=== PATIENT | female | born 1955 | race Caucasian/White ===

== ENCOUNTER 2025-01-26 05:00 | Outpatient (CLI) | payer MEDICARE, SELFPAY | END 2025-01-26 05:01 | LOC: SOT 02-17 09:02 | PROVIDERS: PCP Family Medicine; Visit Provider Family Medicine | DX: Z46.89 Encounter for fitting and adjustment of other specified devices (principal); M84.521D Pathological fracture in neoplastic disease, right humerus, subsequent encounter for fracture with routine healing; D49.9 Neoplasm of unspecified behavior of unspecified site | CPT/HCPCS: L3670 ==

== ENCOUNTER 2025-02-03 09:10 | Outpatient (CLI) | payer MEDICARE, SELFPAY ==
--- NOTE | 2025-02-03 09:21 | XRR_ITS ---
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 Complete osseous survey. Axial and appendicular skeleton. COMPARISON: No relevant prior studies available. FINDINGS: Bones/joints: Marginal spurring and disc height loss noted at multiple levels of the cervical, thoracic, and lumbar spine. Grade 1 degenerative spondylolisthesis L4-L5. Lytic lesions in the bilateral humeral diaphyses, [id number]-left, the left scapular acromion process, and the right proximal femur. Probable nondisplaced pathologic fracture of the right humeral diaphysis. Soft tissues: Unremarkable. XR/XR bone survey* [id number] IMPRESSION: 1. Lytic lesions in the bilateral humeral diaphyses, [id number]-left, the left scapular acromion process, and the right proximal femur. Findings are concerning for myeloma or metastatic disease. 2. Probable nondisplaced pathologic fracture of the right humeral diaphysis. Orthopedic consultation is recommended. 3. Multilevel spondylosis. 4. Grade 1 degenerative spondylolisthesis L4-L5.
== END 2025-02-03 09:11 | disposition home or self-care (01) ==
PROVIDERS: PCP Family Medicine; Visit Provider Family Medicine
DX: D49.2 Neoplasm of unspecified behavior of bone, soft tissue, and skin (principal); M89.8X8 Other specified disorders of bone, other site; M89.8X1 Other specified disorders of bone, shoulder; M89.8X5 Other specified disorders of bone, thigh; R93.7 Abnormal findings on diagnostic imaging of other parts of musculoskeletal system; M43.16 Spondylolisthesis, lumbar region; M77.8 Other enthesopathies, not elsewhere classified; M46.09 Spinal enthesopathy, multiple sites in spine; M47.9 Spondylosis, unspecified
CPT/HCPCS: 77075

== ENCOUNTER 2025-02-08 15:34 | Outpatient (CLI) | payer MEDICARE, SELFPAY ==
--- NOTE | 2025-02-08 15:56 | CTR_ITS ---
PROCEDURE INFORMATION: Exam: CT Chest With Contrast; Diagnostic Exam date and time: 02/08/2025 4:30 PM Age: 69 years old Clinical indication: Other: Right upper arm pain with lesions on xray; Prior surgery; Surgery date: 6+ months; Surgery type: Hyst, colon; Pain and swelling in right arm with lesion seen on xray since last Saturday. ; Additional info: Neoplasm of bone TECHNIQUE: Imaging protocol: Diagnostic computed tomography of the chest with contrast. Radiation optimization: All CT scans at this facility use at least one of these dose optimization techniques: automated exposure control; mA and/or kV adjustment per patient size (includes targeted exams where dose is matched to clinical indication); or iterative reconstruction. Contrast material: OMNI 350; Contrast volume: 100 ml; Contrast route: INTRAVENOUS (IV); COMPARISON: CR XR bone survey* [id number] 02/03/2025 9:32 AM RADIATION DOSE METRICS: Total DLP (mGy-cm): 1483.8 FINDINGS: Lungs: Unremarkable. No consolidation. No masses. Pleural spaces: Unremarkable. No pneumothorax. No pleural effusion. Heart: Unremarkable. No cardiomegaly. No pericardial effusion. Heart RV/LV ratio: The RV/LV ratio is 0.7. Lymph nodes: Unremarkable. No enlarged lymph nodes. Vasculature: Multiple pulmonary emboli are noted bilaterally. One embolus involves the right main pulmonary artery but the other emboli involve the lower lobar branches bilaterally. Bones/joints: There is a partially imaged infiltrating mass involving the diaphysis of the right humerus. There is bony destruction here. Soft tissues: Unremarkable. PROCEDURE INFORMATION: Exam: CT Abdomen And Pelvis With Contrast Exam date and time: 02/08/2025 4:30 PM Age: 69 years old Clinical indication: Other: Right upper arm pain with lesions on xray; Prior surgery; Surgery date: 6+ months; Surgery type: Hyst, colon; Pain and swelling in right arm with lesion seen on xray since last Saturday. ; Additional info: Neoplasm of bone TECHNIQUE: Imaging protocol: Computed tomography of the abdomen and pelvis with contrast. Radiation optimization: All CT scans at this facility use at least one of these dose optimization techniques: automated exposure control; mA and/or kV adjustment per patient size (includes targeted exams where dose is matched to clinical indication); or iterative reconstruction. Contrast material: OMNI 350; Contrast volume: 100 ml; Contrast route: INTRAVENOUS (IV); COMPARISON: CR XR bone survey* [id number] 02/03/2025 9:32 AM RADIATION DOSE METRICS: Total DLP (mGy-cm): 1483.8 FINDINGS: Lungs: Lung bases are clear. No pleural effusion. Liver: Normal. No mass. Gallbladder and biliary ducts: A single gallstone is noted in the gallbladder but I see no gallbladder wall inflammation. Pancreas: Normal. No ductal dilation. Spleen: Normal. No splenomegaly. Adrenal glands: Normal. No mass. Kidneys and ureters: Normal. No hydronephrosis. Stomach and bowel: Unremarkable. No obstruction. No mucosal thickening. Appendix: No evidence of appendicitis. Intraperitoneal space: Unremarkable. No free air. No significant fluid collection. Vasculature: Unremarkable. No abdominal aortic aneurysm. Lymph nodes: Unremarkable. No enlarged lymph nodes. Urinary bladder: Unremarkable as visualized. Reproductive: Unremarkable as visualized. Bones/joints: Unremarkable. No acute fracture. Soft tissues: Unremarkable. CT/CT chest abdpel w/*[id number] IMPRESSION: 1. Bilateral pulmonary emboli with no evidence of right heart strain 2. Lytic lesion involving the right humerus of uncertain etiology. No other bony lesions identified IMPRESSION: 1. There is no evidence of active neoplastic disease. 2. Cholelithiasis
[2025-02-08] MEDS: iohexol 350 mg/mL 500 mL Btl (per mL) IV (16:50)
== END 2025-02-08 15:35 | disposition home or self-care (01) ==
PROVIDERS: PCP Family Medicine; Visit Provider Family Medicine
DX: D49.2 Neoplasm of unspecified behavior of bone, soft tissue, and skin (principal); K80.20 Calculus of gallbladder without cholecystitis without obstruction; I26.99 Other pulmonary embolism without acute cor pulmonale; M89.9 Disorder of bone, unspecified
CPT/HCPCS: 71260; 74177

== ENCOUNTER 2025-02-24 12:15 | Oncology outpatient (recurring) (ONCR) | payer MEDICARE, SELFPAY ==
--- NOTE | 2025-02-09 10:18 | MR_ITS ---
WS: [id number] MRI RIGHT forearm without and with gadolinium enhancement INDICATION: Possible bone metastasis TECHNIQUE: Coronal T1, coronal STIR, sagittal T1, sagittal T2 axial T1 post gadolinium imaging was obtained of the RIGHT forearm. FINDINGS: Normal bone marrow signal in the RIGHT radius and ulna. No evidence of metastatic disease in the RIGHT radius or ulna. No enhancing lesions in the forearm. Degenerative arthritis partially visualized involving the elbow with small joint effusion. Degenerative edema involving the radial head. Hypertrophic spurring involving the olecranon. Degenerative arthritis partially visualized in the wrist. MR/MR forearm RT wo/w con [id number] IMPRESSION: 1. No evidence of metastatic disease in the forearm radius or ulna. 2. 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 3. Note this forearm study does not include the humerus or the previously desc ribed lytic lesion in the RIGHT humeral shaft on the prior CT
[2025-02-09] MEDS: gadobenate dimeglumine 20 mL vial IV (11:01)
[2025-02-09 15:20] LABS: CA 125 16.3 U/mL (0-35); CA 15-3 13.3 U/mL (0-25); Lactate Dehydrogenase 184 U/L (135-214)
[2025-02-09 15:37] LABS: Carcinoembryonic Antigen 2.9 ng/mL (0.0-4.7); Tumor Marker Alpha Fetoprotein 2.6 ng/mL (0-8.3)
[2025-02-09 15:51] LABS: Immunoglobulin IGA 78 mg/dL (70-400); Immunoglobulin IGG 813 mg/dL (700-1600); Immunoglobulin IGM 33 mg/dL (40-230)
--- NOTE | 2025-02-11 14:30 | MR_ITS ---
WS: [id number] MRI of the RIGHT humerus without and with gadolinium enhancement. INDICATION: Bone metastasis TECHNIQUE: MRI of the RIGHT humerus without and with gadolinium enhancement coronal T1 and STIR axial T2 axial PD sagittal STIR sagittal T1 post gadolinium fat saturation imaging FINDINGS: Heterogeneously enhancing bony metastasis involving the RIGHT humeral shaft measuring approximately 6.5 x 2.1 cm. Associated smaller satellite lesion measuring 1.9 x 1.0 cm. Associated surrounding soft tissue edema. Metastatic lesion demonstrates bony expansion and destruction with a lytic appearance. Cortical involvement with cortical breakthrough. Evidence of small pathologic fractures in the region of cortical breakthrough MR/MR humerus RT wo/w con [id number] IMPRESSION: 1. Heterogeneously enhancing lytic metastasis involving the humeral shaft wi th bony expansion and cortical breakthrough described above. 2. Pathologic fracture in the area of cortical breakthrough also seen on the p rior radiographs. Recommend orthopedic consultation. Surrounding soft tissue ed nalini. 3. Adjacent smaller satellite lesion just cephalad to the dominant lesion.
[2025-02-11] MEDS: gadobenate dimeglumine 20 mL vial IV (15:07)
[2025-02-18 16:15] LABS: Chromogranin A LC/MS/MS 152 ng/mL (ADULTS: <311)
[2025-02-24 12:43] LABS: Basophils # 0.1 10^3/uL (0.0-0.1); Basophils % 0.8 %; Eosinophils # 0.4 10^3/uL (0.0-0.8); Eosinophils % 5.6 %; Hematocrit 39.8 % (36-47); Lymphocytes # 2.8 10^3/uL (0.8-4.8); Lymphocytes % 42.1 %; Mean Corpuscular HGB Conc 33.4 g/dL (30-55); Mean Corpuscular Hemoglobin 30.2 pg (27-33); Mean Corpuscular Volume 90.2 fl (85-98); Mean Platelet Volume 10.3 fL (7.4-10.4); Monocytes # 0.7 10^3/uL (0.2-0.9); Monocytes % 9.8 %; Neutrophils # 2.75 10^3/uL (1.8-7.7); Neutrophils % 41.5 %; Nucleated Red Blood Cells % 0 %; Platelet Count 265 10^3/cmm (157-399); Red Blood Count 4.41 10^6/uL (3.85-5.65); Red Cell Distribution Width 12.4 % (12.1-15.1); White Blood Count 6.62 10^3/uL (3.29-11.43)
[2025-02-24 13:05] LABS: INR 1.08 (0.8-1.2)
[2025-02-24 13:08] LABS: D Dimer 1.03 ug/mLFEU (0-0.59)
[2025-02-24 13:13] LABS: HCG Quantitative 1.13 mIU/mL
[2025-02-24 13:18] LABS: Alanine Aminotransferase 10 U/L (0-33); Albumin Level 4.1 g/dL (3.5-5.2); Alkaline Phosphatase 96 U/L (35-105); Aspartate Amino Transferase 15 U/L (0-32); Blood Urea Nitrogen 17 mg/dL (8-23); Calcium 9.3 mg/dL (8.5-10.5); Carbon Dioxide 25 mmol/L (22-29); Chloride 103 mmol/L (98-107); Creatinine Clr Calc Pharmacy 80.0858; Globulin 2.7 g/dL (1.3-4.6); Glucose 99 mg/dL (65-115); Immunoglobulin IGA 77 mg/dL (70-400); Immunoglobulin IGG 836 mg/dL (700-1600); Immunoglobulin IGM 41 mg/dL (40-230); Lactate Dehydrogenase 169 U/L (135-214); Osmolality Calculated 290 mOsm/kg (285-295); Sodium 139 mmol/L (136-145); Total Bilirubin 0.6 mg/dL (0.15-1.2); Total Protein 6.8 g/dL (6.6-8.7)
[2025-02-26 11:50] LABS: KAPPA LIGHT CHAIN, FREE, SERUM 499.7 mg/L (3.3-19.4); KAPPA/LAMBDA LIGHT CHAINS FREE 54.32 (0.26-1.65); LAMBDA LIGHT CHAIN, FREE, SERU 9.2 mg/L (5.7-26.3)
== END 2025-02-24 23:59 | disposition home or self-care (01) ==
PROVIDERS: PCP Family Medicine; Visit Provider Internal Medicine
DX: Z53.9 Procedure and treatment not carried out, unspecified reason (principal); C79.51 Secondary malignant neoplasm of bone; I26.99 Other pulmonary embolism without acute cor pulmonale; G89.3 Neoplasm related pain (acute) (chronic); M84.48XA Pathological fracture, other site, initial encounter for fracture; E66.9 Obesity, unspecified; Z68.41 Body mass index [BMI] 40.0-44.9, adult; Z79.01 Long term (current) use of anticoagulants
CPT/HCPCS: 36415; 73220; 80053; 82105; 82378; 82784; 83615; 83883; 84702; 85025; 85378; 85610; 86300; 86301; 86304; 86316; 99204; 99213

== ENCOUNTER 2025-03-15 08:57 | Emergency (ER) | payer MEDICARE, SELFPAY ==
[2025-03-15 09:18] VITALS: BP 161/83; PULSE 70; TEMP 36.6; O2SAT 95; BMI 40.7
--- NOTE | 2025-03-15 09:51 | XRR_ITS ---
PROCEDURE INFORMATION: Exam: XR Right Humerus Exam date and time: 03/15/2025 10:00 AM Age: 69 years old Clinical indication: Pain; Upper arm; Right; Additional info: Arm pain TECHNIQUE: Imaging protocol: Radiologic exam of the right humerus. Views: 2 or more views. COMPARISON: MR humerus RT wo/w con [id number] 02/11/2025 2:26 PM FINDINGS: Bones/joints: There is a lytic lesion in the mid shaft of the right humerus again seen as described on the MRI imaging dated 02/11/2025. The lesion measures approximately 6.7 cm in length thinning the cortex circumferentially with scattered periosteal reaction present. Soft tissues: Normal. XR/[place] [id number] IMPRESSION: Mid shaft metastatic lesion of the right humerus again seen
--- NOTE | 2025-03-15 09:51 | XRR_ITS ---
PROCEDURE INFORMATION: Exam: XR Right Shoulder Exam date and time: 03/15/2025 9:57 AM Age: 69 years old Clinical indication: Pain; Shoulder; Right; Additional info: Arm pain TECHNIQUE: Imaging protocol: Radiologic exam of the right shoulder. Views: 2 or more views. COMPARISON: CR XR bone survey* [id number] 02/03/2025 9:32 AM FINDINGS: Bones/joints: An irregular lytic lesion of the mid shaft of the right humerus is again seen as described on the MRI imaging dated 02/11/2025. There is mild bone spurring and joint space narrowing seen within the right acromioclavicular joint compatible with osteoarthritic changes. Soft tissues: Normal. XR/XR shoulder RT min 2V* [id number] IMPRESSION: 1. Bony metastatic lesion in the mid shaft of the right humerus is again seen. 2. Osteoarthritic changes in the right acromioclavicular joint
--- NOTE | 2025-03-15 10:18 | ED_ITS ---
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 Patient is awaiting bone biopsy at [facility] she goes there and is following up with orthopedic oncology there after. She states that today her pain is worsened and needs some pain control. She states the pain is mainly in the humerus rates it a 8 out of 10 she has had pulmonary emboli as well as currently on Eliquis. Denies any new injuries Associated symptoms: Deny chest pain, fever(s) or rash Related Data Home Medications ?Medication ?Instructions ?Recorded ?Confirmed hydrocodone 10 mg-acetaminophen tab PO 02/09/25 325 mg tablet apixaban 5 mg tablet (Eliquis) 5 mg PO BID 02/24/25 ivermectin 3 mg tablet mg PO DAILY 02/24/25 5 Previous Rx's ?Medication ?Instructions ?Recorded oxycodone-acetaminophen 10 mg-325 1 tab PO Q8H PRN tracy n #20 tabs 03/15/25 mg tablet (Percocet) Allergies Allergy/AdvReac Type Severity Reaction Status Date / Time No Known Drug Allergies Allergy Mild Unknown Verified 03/15/25 09:24 Review of Systems Const: Denies: fever(s), chills, body aches or change in appetite ENMT: Denies: throat pain or dental pain Card: Denies: chest pain Resp: Denies: dyspnea GI: Denies: abdominal pain, nausea, vomiting or diarrhea Musc: Reports: extremity pain; Denies: neck pain or back pain Skin/Breast: Denies: rash Neuro: Denies: headache(s) Physical Exam Const: COMMON NORMALS: no acute distress, patient oriented x3 and healthy appearing HENMT: COMMON NORMALS: normocephalic and atraumatic HEAD & SCALP: normocephalic and atraumatic Neck/C-Spine: COMMON NORMALS: full ROM and supple Chest: COMMONS NORMALS: normal inspection of the chest Resp: COMMON NORMALS: normal respiratory effort Cardio: COMMON NORMALS: regular rate RATE: regular rate Extremity: NARRATIVE EXTREMITY EXAM: Patient currently in a sling has tenderness over right humerus distal pulses sensation are intact to the right arm Neuro: COMMON NORMALS: patient oriented x3, moves all extremities and no focal motor deficits Psych: COMMON NORMALS: mental status grossly normal, Normal thought process present and cooperative THOUGHT PROCESS: Normal thought process present Skin: COMMON NORMALS: no rashes or lesions noted and no wounds GENERAL SKIN EXAM: no rashes or lesions noted Course Vital Signs: Vital signs: Vital Signs Temperature 97.9 F 03/15/25 09:18 Pulse Rate 70 03/15/25 09:18 Respiratory Rate 18 03/15/25 10:33 Blood Pressure 161/83 03/15/25 09:18 Pulse Oximetry 99 03/15/25 10:33 Oxygen Delivery Me thod Room Air 03/15/25 10:33 MDM - Extremity (Nontraumatic) Medical Decision Making Patient presents with arm pains been chronic from bone metastases x-ray showed no new findings did give her Dilaudid she feels improved will prescribe her Percocet she has a bony biopsy scheduled this week follow-up with scheduled return if worsening. Medical Records I reviewed the patient's medical records. Lab Data Radiology Impressions Humerus X-Ray 03/15/25 09:51 IMPRESSION: Mid shaft metastatic lesion of the right humerus again seen Shoulder X-Ray 03/15/25 09:51 IMPRESSION: 1. Bony metastatic lesion in the mid shaft of the right humerus is again seen. 2. Osteoarthritic changes in the right acromioclavicular joint All radiology interpretation(s) finalized by discharge Discharge Plan Discharge Patient Disposition: Home Clinical Impression: Metastasis to bone, Neoplasm related pain Condition: Stable Prescriptions: New oxycodone-acetaminophen [Percocet] 10-325 mg tablet 1 tab PO Q8H PRN (Reason: pain) Qty: 20 0RF No Action Eliquis 5 mg tablet 5 mg PO BID ivermectin 3 mg tablet PO DAILY hydrocodone-acetaminophen 10-325 mg tablet PO Discharge Orders: Discharge ED (Routine); Ordered 03/15/25 Ordered By: Sonny Sanchez Referrals: Ryne Madison MD [Primary Care Provider, [facility]] Discharge Diet: Advance as tolerated Discharge Activity: Resume usual activity Patient Instructions: Arm Pain (ED) Print Language: Belarusian Coding Level of Care Code ED [employer] Representative for Yeison Xie
[2025-03-15] MEDS: HYDROmorphone 0.5 MG/0.5 ML INJ 1 MG IM (10:30)
[2025-03-15 10:33] VITALS: RESP 18; O2SAT 99
[2025-03-15 11:01] VITALS: BP 158/73; PULSE 76; O2SAT 98
== END 2025-03-15 11:01 | disposition home or self-care (01) ==
PROVIDERS: Emergency Provider Emergency Medicine; PCP Family Medicine
DX: G89.3 Neoplasm related pain (acute) (chronic) (principal); C79.51 Secondary malignant neoplasm of bone; Z79.899 Other long term (current) drug therapy; Z79.01 Long term (current) use of anticoagulants; Z86.711 Personal history of pulmonary embolism
CPT/HCPCS: 73030; 73060; 96372; 99284; J1171

== ENCOUNTER 2025-03-25 14:26 | Oncology outpatient (recurring) (ONCR) | payer MEDICARE, SELFPAY ==
--- NOTE | 2025-03-19 14:30 | PETR_ITS ---
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 Then, PET images were obtained. Attenuation corrected images were constructed using the CT scan. Fused images of PET and CT were reviewed. The standardized uptake values (SUV) reported below are maximum values within a region of interest, expressed in gm/ml. Exam includes the whole body. SUV normalization method: BodyWeight Radiopharmaceutical: 11.44 mCi F-18 FDG (Fluorodeoxyglucose), IV. Time of imaging post radiopharmaceutical administration: 45 minutes Injection site: left ac COMPARISON: 1. MR humerus RT wo/w con [id number] 02/11/2025 2:[address] chest abdpel w/*[id number] 02/08/2025 4:30 PM 3[place] [id number] 03/15/2025 10:00 AM FINDINGS: Brain: Visualized brain has normal physiologic uptake. Paranasal sinuses: Moderate [id number]-right ethmoid air cell opacification and mild bilateral maxillary sinus opacification with fluid level on the right. Pharynx: No abnormal uptake. Larynx: No abnormal uptake. Lungs, pleura and trachea: No abnormal uptake. Right lung calcified granulomata. Heart: Normal physiologic uptake. Mediastinal space: No abnormal uptake. Liver: No abnormal uptake. Gallbladder and biliary ducts: No abnormal uptake. Cholelithiasis. Pancreas: No abnormal uptake. Spleen: No abnormal uptake. Calcified granulomata. Adrenal glands: No abnormal uptake. Kidneys and ureters: Normal physiologic uptake. Stomach and bowel: No abnormal uptake. Rectal anastomosis. Reproductive: The uterus is surgically absent. Vasculature: No abnormal uptake. Mild systemic atherosclerotic calcification without aortic aneurysm. Lymph nodes: No abnormal uptake. No lymphadenopathy in the head, neck, chest, abdomen, pelvis, and extremities. Calcified mediastinal and right hilar nodes in keeping with sequela of old granulomatous disease. Skeleton: Approximately 7 cm long lytic right mid humeral shaft lesion with significant cortical thinning and possible disruption such as on axial image 498 shows SUV max 5.6. Ovoid lucent lesion at the left scapular acromion with milder cortical thinning measures 2.9 x 1.7 cm on axial image 530 and shows SUV max 3.9. Right glenohumeral joint periarticular FDG uptake without underlying CT abnormality. Degenerative change along the axial skeletal system, shoulders, knees, and feet. FDG uptake at heterogeneously calcified proximal right hamstring tendon. Soft tissues: No abnormal uptake in the visualized head, neck, chest, abdomen, pelvis, and extremities. METRICS: Mediastinal blood pool: SUV mean 2.2 Liver uptake: SUV mean 2.9 PET/PET WB melanoma INITIAL [id number] IMPRESSION: 1. FDG avid 7 cm long right mid humeral shaft lytic lesion compatible with malignancy. 2. FDG avid 2.9 cm lucent left acromion lesion also suspicious for malignancy. 3. Right glenohumeral joint periarticular uptake is likely inflammatory. 4. Likely inflammatory uptake at heterogeneously calcified proximal right hamstring tendon. 5. Moderate ethmoid air cell greater than maxillary sinus disease with right maxillary sinus fluid level possibly indicating acute sinusitis. 6. Additional chronic and incidental findings as above.
== END 2025-03-27 23:59 | disposition home or self-care (01) ==
PROVIDERS: PCP Family Medicine; Visit Provider Internal Medicine
DX: C79.51 Secondary malignant neoplasm of bone (principal); C90.00 Multiple myeloma not having achieved remission; G89.3 Neoplasm related pain (acute) (chronic); I26.99 Other pulmonary embolism without acute cor pulmonale; Z79.01 Long term (current) use of anticoagulants
CPT/HCPCS: 78816; 99213; A9552

== ENCOUNTER 2025-04-08 13:33 | Outpatient (CLI) | payer MEDICARE, SELFPAY ==
[2025-04-09 08:19] LABS: CREATININE, 24 HOUR URINE 1.06 g/24 h (0.50-2.15); PROTEIN, TOTAL, 24 HR UR 86 mg/24 h (<150); Protein/Creatinine Ratio 80 mg/g creat (<150)
== END 2025-04-08 13:34 | disposition home or self-care (01) ==
LOC: LAB 13:35
PROVIDERS: PCP Family Medicine; Visit Provider Internal Medicine
DX: C79.51 Secondary malignant neoplasm of bone (principal)
CPT/HCPCS: 82570; 84166; 86335

== ENCOUNTER 2025-04-13 13:18 | Outpatient (CLI) | payer MEDICARE, SELFPAY ==
--- NOTE | 2025-04-13 13:27 | XR_ITS ---
WS: [id number] Left shoulder, 2 views, 04/13/2025 Clinical Data: PAIN IN L SHOULDER Comparison: None. Findings: No fractures or dislocations are seen. The AC joint is normal. The adjacent left clavicle, left scapula and ribs are normal. The soft tissues are unremarkable. XR/XR shoulder LT min 2V* [id number] Impression: Negative left shoulder.
== END 2025-04-13 13:19 | disposition home or self-care (01) ==
PROVIDERS: PCP Family Medicine; Visit Provider Family Medicine
DX: M25.512 Pain in left shoulder (principal)
CPT/HCPCS: 73030

== ENCOUNTER 2025-04-21 10:54 | Outpatient (RCR) | payer MEDICARE, SELFPAY | END 2025-04-26 23:59 | disposition home or self-care (01) | LOC: SPT 10:54 | PROVIDERS: Visit Provider Registered Nurse | DX: M84.5 Pathological fracture in neoplastic disease (principal); C90.00 Multiple myeloma not having achieved remission | CPT/HCPCS: 97161 ==

== ENCOUNTER 2025-04-23 09:05 | Emergency (ER) | payer MEDICARE, SELFPAY ==
[2025-04-23] VITALS (7 sets, daily range): BP systolic 160–205; BP diastolic 98–113; PULSE 54–66; RESP 16–17; TEMP 36.3; O2SAT 96–100; BMI 40.3
--- OUTSIDE RECORDS SUMMARY | 2025-04-23 09:10 | XMS_ITS | Data Portability ---
Author Organization [facility], [place]thia, [facility] Address [address] [id number] Assessment Encounter Date Assessment Date Assessment LastModified by Organization Details LastModified Time 04/13/2025 04/13/2025 she has oxycodone for pain but hasn't taken it lately. she flavio luse that if needed. i spent 40 minutes answering questions regarding her overall care. [email or web address] Not available 04/13/2025 13:59:59 Plan of Treatment Reminders Order Date Submit Date Provider Last Modified By Organization Details Last Modified Time Details Appointments None recorded. Lab PT/INR 2024 025 [facility] ([facility]), [address] [place] [address], [id number], 12:16:54 CBC 2024 025 [facility], [address] [place] [address], 12:34:18 CMP, serum or plasma 2024 025 [facility], [address] [place] [address], [address], 12:41:04 CBC w/ auto diff [address] [facility], [address] [place] [address], [address], 5 09:03:53 peripheral blood smear 2024 025 [email or web address] [id number] [facility], [address] [place] [address], [address], [place], [address], 5 09:03:53 CMP, serum or plasma 2024 025 [facility], [address], [address], [place], [address], 5 10:45:45 immunofixa tion + protein electropho resis + free light chains, serum 2024 025 [facility], [address] [place] [address], [address], [place], [address], 16:10:24 immunofixa tion, 24-hr urine [address], [address] [place] [address], [address], [place], [address], 09:03:53 kappa light chains free/lambd a light chains free, ratio, urine 2024 025 [facility], [address] [place] [address], [address], [place], [address], 5 16:10:23 ldh, serum or plasma 2024 025 [facility], [address] [place] [address], [address], [place], [address], 5 16:10:21 urinalysis , complete 2024 025 [facility], [address], [address], [place], [address], 5 10:29:04 TSH + free T4, serum 2024 025 [facility] [employer] [facility], [address], [address] [place], [address], 5 16:10:25 Referral physical therapist referral 2024 025 [email or web address] 4 [facility], [address] [place], [address], 5 10:29:59 orthopedic surgeon referral 2024 025 [email or web address] 2 Not available 10:53:01 oncologist referral 2024 025 [facility] Cosme Gibbs MD, [address] [place], [address], 5 13:04:14 Procedures None recorded. Surgeries None recorded. Imaging XR, shoulder, 2 or more view 2024 025 [facility], [address] [place], [address], 5 15:10:17 XR, whole body - skeletal survey today please 2024 025 [email or web address] 2 [facility], [address] [place], [address], 5 12:46:31 Medication Orders ondansetro n HCl 8 mg tablet 2024 025 [facility], [address], [place], [address], 5 13:34:58 trazodone 150 mg tablet [address] [facility], [address], [place], [address], 13:58:14 escitalopr am 10 mg tablet 2024 025 [facility] [address], [place], [address], 13:55:11 Patient TargetsNo targets recorded. Patient InstructionsNo instructions recorded. 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50-5 .50 Not Available [facility] [address] [facility] 1, [place], [address], 02/03/2025 10:01:03 02/04/20 25 02/03/2025 CBC HGB 13.8 g/dL 12.0-1 6.0 Not Available [facility] [address] [facility] 1, [place], [address], 02/03/2025 10:01:03 02/04/20 25 02/03/2025 CBC HCT 41.4 % 37.0-4 7.0 Not Available [facility] [address] [facility] 1, [place], [address], 02/03/2025 10:01:03 02/04/20 25 02/03/2025 CBC MCV 94.2 fL 80.0-9 9.9 Not Available [facility] [address] [facility] 1, [place], [address], 02/03/2025 10:01:03 02/04/20 25 02/03/2025 CBC MCH 31.5 pg 27.0-3 2.0 Not Available [facility] [address] [facility] 1, [place], [address], 02/03/2025 10:01:03 02/04/20 25 02/03/2025 CBC MCHC 33.4 g/dL 32.0-3 6.0 Not Available [facility] [address] [facility] 1, [place], [address], 02/03/2025 10:01:03 02/04/20 25 02/03/2025 CBC RDW 13.4 % 11.5-1 4.5 Not Available [facility] [address] [facility] 1, [place], [address], 02/03/2025 10:01:03 02/04/20 25 02/03/2025 CBC plt 239.6 x10 140.0- 451.0 Not Available [facility] [address] [facility] 1, [place], [address], 02/03/2025 10:01:03 02/04/20 25 02/03/2025 CBC lymphocytes % 39.9 % 20.0-5 0.0 Not Available [facility] [address] [facility] 1, [place], [address], 02/03/2025 10:01:03 02/04/20 25 02/03/2025 CBC granulcytes % 43.4 % 30.0-7 0.0 Not Available [facility] [address] [facility] [address] [facility] 1, [place], [address], 02/03/2025 10:01:03 02/04/20 25 02/03/2025 CBC monocytes % 10.5 % 2.0-16 .0 Not Available [facility] [address] [facility] 1, [place], [address], 02/03/2025 10:01:03 02/04/20 25 02/03/2025 CBC granulcytes# 3.3 x10 Not Callie ilable [facility] [address] [facility] 1, [place], [address], 02/03/2025 10:01:03 02/04/20 25 02/03/2025 CBC lymphocytes # 3.0 x10 Not Available [facility] [address] [facility], [place], [address], 02/03/2025 10:01:03 02/04/20 25 02/03/2025 CBC monocytes # 0.8 x10 Not Avai lable [facility] [address] [facility], [place], [address], 02/03/2025 10:01:03 02/04/20 25 02/03/2025 URINA LYSIS WITH MICRO color CHERIE abnormal Not Available [facility] [address] [facility] 1, [place], [address], 02/03/2025 10:29:04 02/04/20 25 02/03/2025 URINA LYSIS WITH MICRO clarity CLEAR Not Available [facility] [address] [facility] 1, [place], [address], 02/03/2025 10:29:04 02/04/20 25 02/03/2025 URINA LYSIS WITH MICRO glu NEGATI VE Not Available [facility] k [facility] [address] [place], [address], 02/03/2025 10:29:04 02/04/20 25 02/03/2025 URINA LYSIS WITH MICRO bili 1+ abnormal Not Available [facility] [address] [facility] 1, [place], [address], 02/03/2025 10:29:04 02/04/20 25 02/03/2025 URINA LYSIS WITH MICRO ket NEGATI VE Not Available [facility] [address] [facility] 1, [place], [address], 02/03/2025 10:29:04 02/04/20 25 02/03/2025 URINA LYSIS WITH MICRO S.g >1.030 1.005- 1.025 high > Not Available [facility] [address] [facility] 1, [place], [address], 02/03/2025 10:29:04 02/04/20 25 02/03/2025 URINA LYSIS WITH MICRO pH 5.5 5.0-7. 0 Not Available [facility] [address] [facility] 1, [place], [address], 02/03/2025 10:29:04 02/04/20 25 02/03/2025 URINA LYSIS WITH MICRO pro NEGATI VE Not Available [facility] [address] [facility] 1, [place], [address], 02/03/2025 10:29:04 02/04/20 25 02/03/2025 URINA LYSIS WITH MICRO uro 0.2 E.U./D L Not Available [facility] [address] [facility] 1, [place], [address], 02/03/2025 10:29:04 02/04/20 25 02/03/2025 URINA LYSIS WITH MICRO nit NEGATI VE Not Available [facility] [address] [facility] [address], [place], [address], 02/03/2025 10:29:04 02/04/20 25 02/03/2025 URINA LYSIS WITH MICRO blo TRACE- INTACT abnormal Not Available [facility] [address] [facility] [address], [place], [address], 02/03/2025 10:29:04 02/04/20 25 02/03/2025 URINA LYSIS WITH MICRO petros NEGATI VE Not Available [facility] [address], [place], [address], 02/03/2025 10:29:04 02/04/20 25 02/03/2025 URINA LYSIS WITH MICRO WBC 0-1 Not Available [facility] [address] [facility] [address] 1, [place], [address], 02/03/2025 10:29:04 02/04/20 25 02/03/2025 URINA LYSIS WITH MICRO RBC 2-4 Not Available [facility] [address] [facility] [address], [place], [address], 02/03/2025 10:29:04 02/04/20 25 02/03/2025 URINA LYSIS WITH MICRO epi cells 15-20 Not Available [facility] [address] [facility] [address], [place], [address], 02/03/2025 10:29:04 02/04/20 25 02/03/2025 URINA LYSIS WITH MICRO bacteria TRACE MIXED JAMEE Not Available [facility] [address], [place], [address], 02/03/2025 10:29:04 02/04/20 25 02/03/2025 URINA LYSIS WITH MICRO other NEGATI VE Not Available [facility] [address] [facility] [address], [place], [address], 02/03/2025 10:29:04 02/04/20 25 02/03/2025 CMP (FEMA LE) glucose 113.0 mg/dL 60.0-9 9.0 high Not Available [facility] [address] [facility], [place], [address], 02/03/2025 10:45:45 02/04/20 25 02/03/2025 CMP (FEMA LE) BUN (blood urea nitrogen) 21.0 mg/dL 10.0-2 6.0 Not Available [facility] 5 [facility] 1, [place], [address], 02/03/2025 10:45:45 02/04/20 25 02/03/2025 CMP (FEMA LE) creatinine (serum) 0.6 mg/dL 0.4-1. 5 Not Available [place] [address], [place], [address], 02/03/2025 10:45:45 02/04/20 25 02/03/2025 CMP (FEMA LE) BUN/creatini ne ratio 35.00 ratio Not Available [place] [address], [place], [address], 02/03/2025 10:45:45 02/04/20 25 02/03/2025 CMP (FEMA LE) eGFR calculated 104.7 Not Available [facility] [address] [address], [place], [address], 02/03/2025 10:45:45 02/04/20 25 02/03/2025 CMP (FEMA LE) total protein 7.2 g/dL 6.0-8. 5 Not Available [place] [address] [address], [place], [address], 02/03/2025 10:45:45 02/04/20 25 02/03/2025 CMP (FEMA LE) total bilirubin 1.1 mg/dL 0.2-1. 3 Not Available [facility] [address] [facility], [place], [address], 02/03/2025 10:45:45 02/04/20 25 02/03/2025 CMP (FEMA LE) albumin 4.3 g/dL 3.5-5. 5 Not Available [facility] [address] [facility] 1, [place], [address], 02/03/2025 10:45:45 02/04/20 25 02/03/2025 CMP (FEMA LE) globulin 2.9 calc Not Available [facility] [address] [facility] 1, [place], [address], 02/03/2025 10:45:45 02/04/20 25 02/03/2025 CMP (FEMA LE) AST (SGOT) 19.0 U/L 0.0-46 .0 Not Available [facility] [address] [facility] 1, [place], [address], 02/03/2025 10:45:45 02/04/20 25 02/03/2025 CMP (FEMA LE) altv (SGPT) 16.0 U/L 13.0-6 9.0 normal Not Available [facility] [address] [facility] 1, [place], [address], 02/03/2025 10:45:45 02/04/20 25 02/03/2025 CMP (FEMA LE) A/G ratio 1.5 ratio Not Available [facility] reek [facility] [address] [facility] 1, [place], [address], 02/03/2025 10:45:45 02/04/20 25 02/03/2025 CMP (FEMA LE) ALP phos 88.0 U/L 30.0-1 40.0 normal Not Available [facility] [address] [facility] 1, [place], [address], 02/03/2025 10:45:45 02/04/20 25 02/03/2025 CMP (FEMA LE) calcium 9.3 mg/dL 8.4-10 .5 Not Available [facility] [address] [facility] 1, [place], [address], 02/03/2025 10:45:45 02/04/20 25 02/03/2025 CMP (FEMA LE) sodium 136.0 mmol/ L 136.0- 145.0 Not Available [facility] [address] [facility] 1, [place], [address], 02/03/2025 10:45:45 02/04/20 25 02/03/2025 CMP (FEMA LE) potassium 3.8 mmol/ L 3.5-5. 1 Not Available [facility] [address] [facility] 1, [place], [address], 02/03/2025 10:45:45 02/04/20 25 02/03/2025 CMP (FEMA LE) chloride 101.0 mmol/ L 98.0-1 10.0 normal Not Available [facility] [address] [facility] 1, [place], [address], 02/03/2025 10:45:45 02/04/20 25 02/03/2025 CMP (FEMA LE) C02 26.0 mmol/ L 22.0-3 1.0 Not Available [facility] [address] [facility] 1, [place], [address], 02/03/2025 10:45:45 02/04/20 25 02/03/2025 CMP (FEMA LE) anion gap 9.0 calc Not Available [facility] [address] [facility] 1, [place], [address], 02/03/2025 10:45:45 02/04/20 25 02/03/2025 CMP (FEMA LE) osmolality 284.7 calc Not Available [facility] [address], [place], [address], 02/03/2025 10:45:45 02/04/20 25 02/04/2025 PERIP HERAL BLOOD SMEAR REVIE W peripheral blood smear review Revie w of perip heral smear confi ervin autom ated resul ts. Revie w of the perip heral smear revea ls adequ ate numbe rs of plate lets. RBC morph ology appea rs jagdish l. Not Available [address] [address] [place], [address], 02/04/2025 15:26:35 02/04/20 25 02/09/2025 LD LD 177 U/L 120-25 0 normal Not Available [address] [address] [place], [address], 02/09/2025 16:10:21 02/04/20 25 02/09/2025 IMMUN OFIXA TION, SERUM tori interpretati on NORMAL PATTER N. No monoc lonal prote ins detec kathleen. Not Available [address] [address] [place], [address], 02/09/2025 16:10:22 02/04/20 25 02/09/2025 KAPPA /BATRES DA LIGHT CHAIN , FREE W/RAT IO,RA ND URINE kappa light chain, free, urine 23.43 mg/L <=32.9 0 Not Available [address] [address] [place], [address], 02/09/2025 16:10:23 02/04/20 25 02/09/2025 KAPPA /BATRES DA LIGHT CHAIN , FREE W/RAT IO,RA ND URINE lambda light chain, free, urine 2.72 mg/L <=3.79 Not Available [address] [address] [place], [address], 02/09/2025 16:10:23 02/04/20 25 02/09/2025 KAPPA /BATRES DA LIGHT CHAIN , FREE W/RAT IO,RA ND URINE kappa/lambda , free ratio 8.61 <=8.69 If free light chain resul ts do not agree with other clini beverley or labor atory findi ngs, repea t testi ng on a dilut ed sampl e to rule out antig en exces s may be reque sted. Not Available [address] [address] [place], [address], 02/09/2025 16:10:23 02/04/20 25 02/09/2025 PROTE IN ELECT ROPHO RESIS AND KAPPA /BATRES DA LIGHT CHAIN S, SERUM protein, total 6.5 g/dL 6.1-8. 1 Not Available [address] [place], [address], 02/09/2025 16:10:24 02/04/20 25 02/09/2025 PROTE IN ELECT ROPHO RESIS AND KAPPA /BATRES DA LIGHT CHAIN S, SERUM albumin 3.9 g/dL 3.8-4. 8 Not Available [place] [address] [facility], [place], [address], 02/09/2025 16:10:24 02/04/20 25 02/09/2025 PROTE IN ELECT ROPHO RESIS AND KAPPA /BATRES DA LIGHT CHAIN S, SERUM alpha 1 globulin 0.3 g/dL 0.2-0. 3 Not Available [facility] [address] [address] [place], [address], 02/09/2025 16:10:24 02/04/20 25 02/09/2025 PROTE IN ELECT ROPHO RESIS AND KAPPA /BATRES DA LIGHT CHAIN S, SERUM alpha 2 globulin 0.8 g/dL 0.5-0. 9 Not Available [facility] [address] [address] [place], [address], 02/09/2025 16:10:24 02/04/20 25 02/09/2025 PROTE IN ELECT ROPHO RESIS AND KAPPA /BATRES DA LIGHT CHAIN S, SERUM beta 1 globulin 0.5 g/dL 0.4-0. 6 Not Available [facility] [address] [address] [place], [address], 02/09/2025 16:10:24 02/04/20 25 02/09/2025 PROTE IN ELECT ROPHO RESIS AND KAPPA /BATRES DA LIGHT CHAIN S, SERUM beta 2 globulin 0.3 g/dL 0.2-0. 5 Not Available [facility] [address] [address] [place], [address], 02/09/2025 16:10:24 02/04/20 25 02/09/2025 PROTE IN ELECT ROPHO RESIS AND KAPPA /BATRES DA LIGHT CHAIN S, SERUM gamma globulin 0.7 g/dL 0.8-1. 7 low Not Available [place] [address] [facility] [facility], [place], [address], 02/09/2025 16:10:24 02/04/20 25 02/09/2025 PROTE IN ELECT ROPHO RESIS AND KAPPA /BATRES DA LIGHT CHAIN S, SERUM interpretati on SEE NOTE Consi stent with hypog ammag lobul inemi a in an adult . Serum free light chain s or urine immun ofixa tion shoul d be consi dered if plasm a cell dyscr asias are a possi ble clini beverley diagn osis. Not Available [facility] [address] [address] [address] , [place], [address], 02/09/2025 16:10:24 02/04/20 25 02/09/2025 PROTE IN ELECT ROPHO RESIS AND KAPPA /BATRES DA LIGHT CHAIN S, SERUM kappa 160 mg/dL 176-44 3 low Not Available [facility] [address] [address] [place], [address], 02/09/2025 16:10:24 02/04/20 25 02/09/2025 PROTE IN ELECT ROPHO RESIS AND KAPPA /BATRES DA LIGHT CHAIN S, SERUM lambda 82 mg/dL 91-240 low Not Available [facility] [address] [address] [place], [address], 02/09/2025 16:10:24 02/04/20 25 02/09/2025 PROTE IN ELECT ROPHO RESIS AND KAPPA /BATRES DA LIGHT CHAIN S, SERUM kappa/lambda ratio 1.95 1.29-2 .55 This assay provi mady a measu remen t of the total kappa and the total lambd a light chain s, ie., the amoun t of free (unat tache d) light chain in circu latio n and the amoun t of light chain linke d to heavy chain in intac t immun oglob ulin molec ules. Assay s for serum free light chain only, kappa and lambd a with ratio , may be more usefu l in evalu ating and manag ing light chain gammo pathi es inclu ding those assoc iated with myelo ma, lymph oprol ifera tive disor ders, and amylo idosi s. Not Available [facility] [address] [address] [place], [address], 02/09/2025 16:10:24 02/04/20 25 02/09/2025 TSH+F REE T4 TSH 1.75 mIU/L 0.40-4 .50 normal Not Available [facility] [address] [place], [address], 02/09/2025 16:10:25 02/04/20 25 02/09/2025 TSH+F REE T4 T4, free 1.4 NG/dL 0.8-1. 8 normal Not Available [facility] [address] [address] [place], [address], 02/09/2025 16:10:25 02/06/20 25 02/09/2025 IMMUN OFIXA TION, URINE tori interpretati on No monoc lonal immun oglob ulin detec kathleen. The suppl ier of the testi ng reage nts for this assay has powers soto. Detec tion of small monoc lonal prote ins may vary by test brookee m. Not Available [employer] [facility] [address] [facility], [place], [address], 02/09/2025 09:43:16 03/12/20 25 03/12/2025 CBC WBC 6.3 x10 4.0-10 .5 Not Available [facility] [address] [facility] [address], [place], [address], 03/12/2025 12:34:18 03/12/20 25 03/12/2025 CBC RBC 4.30 x10 3.50-5 .50 Not Available [facility] [address] [facility] [address], [place], [address], 03/12/2025 12:34:18 03/12/20 25 03/12/2025 CBC HGB 13.6 g/dL 12.0-1 6.0 Not Available [facility] [address] [facility] [address], [place], [address], 03/12/2025 12:34:18 03/12/2003/12/2025 CBC HCT 40.5 % 37.0-4 7.0 Not Available [facility] [address] [facility] [address], [place], [address], 03/12/2025 12:34:18 03/12/20 25 03/12/2025 CBC MCV 94.3 fL 80.0-9 9.9 Not Available [facility] [address] [facility] [address], [place], [address], 03/12/2025 12:34:18 03/12/20 25 03/12/2025 CBC MCH 31.6 pg 27.0-3 2.0 Not Available [facility] [address] [facility] [address], [place], [address], 03/12/2025 12:34:18 03/12/20 25 03/12/2025 CBC MCHC 33.5 g/dL 32.0-3 6.0 Not Available [facility] [address] [facility], [place], [address], 03/12/2025 12:34:18 03/12/20 25 03/12/2025 CBC RDW 13.4 % 11.5-1 4.5 Not Available [facility] [address] [facility] 1, [place], [address], 03/12/2025 12:34:18 03/12/2003/12/2025 CBC plt 220.0 x10 140.0- 451.0 Not Available [facility] [address] [facility] 1, [place], [address], 03/12/2025 12:34:18 03/12/20 25 03/12/2025 CBC lymphocytes % 39.2 % 20.0-5 0.0 Not Available [facility] [address] [facility] 1, [place], [address], 03/12/2025 12:34:18 03/12/2003/12/2025 CBC granulcytes % 44.4 % 30.0-7 0.0 Not Available [facility] [address] [facility] 1, [place], [address], 03/12/2025 12:34:18 03/12/2003/12/2025 CBC monocytes % 11.2 % 2.0-16 .0 Not Available [facility] [address] [facility] 1, [place], [address], 03/12/2025 12:34:18 03/12/2003/12/2025 CBC granulcytes# 2.8 x10 Not Callie ilable [facility] [address] [facility] 1, [place], [address], 03/12/2025 12:34:18 03/12/20 25 03/12/2025 CBC lymphocytes # 2.5 x10 Not Available [facility] [address] [address], [place], [address], 03/12/2025 12:34:18 03/12/20 25 03/12/2025 CBC monocytes # 0.7 x10 Not [facility] [address] [address], [place], [address], 03/12/2025 12:34:18 03/12/20 25 03/12/2025 CMP (FEMA LE) glucose 107.0 mg/dL 60.0-9 9.0 high Not Available [address] [place] [address], [place], [address], 03/12/2025 12:41:04 03/12/20 25 03/12/2025 CMP (FEMA LE) BUN (blood urea nitrogen) 13.0 mg/dL 10.0-2 6.0 Not Available [address] [address], [place], [address], 03/12/2025 12:41:04 03/12/20 25 03/12/2025 CMP (FEMA LE) creatinine (serum) 0.5 mg/dL 0.4-1. 5 Not Available [address] [place] [address], [place], [address], 03/12/2025 12:41:04 03/12/20 25 03/12/2025 CMP (FEMA LE) BUN/creatini ne ratio 26.00 ratio Not Available [address] [address], [place], [address], 03/12/2025 12:41:04 03/12/20 25 03/12/2025 CMP (FEMA LE) eGFR calculated 129.3 Not Available [facility] [address] [facility] 1, [place], [address], 03/12/2025 12:41:04 03/12/20 25 03/12/2025 CMP (FEMA LE) total protein 7.0 g/dL 6.0-8. 5 Not Available [facility] [address] [facility] [place], [address], 03/12/2025 12:41:04 03/12/2003/12/2025 CMP (FEMA LE) total bilirubin 0.6 mg/dL 0.2-1. 3 Not Available [facility] [address] [facility] [place], [address], 03/12/2025 12:41:04 03/12/20 25 03/12/2025 CMP (FEMA LE) albumin 4.2 g/dL 3.5-5. 5 Not Available [facility] [address] [facility], [place], [address], 03/12/2025 12:41:04 03/12/2003/12/2025 CMP (FEMA LE) globulin 2.8 calc Not Available [facility] [address] [address], [place], [address], 03/12/2025 12:41:04 03/12/2003/12/2025 CMP (FEMA LE) AST (SGOT) 21.0 U/L 0.0-46 .0 Not Available [facility] [address] [facility], [place], [address], 03/12/2025 12:41:04 03/12/2003/12/2025 CMP (FEMA LE) altv (SGPT) 16.0 U/L 13.0-6 9.0 normal Not Available [facility] [address] [facility] [address], [place], [address], 03/12/2025 12:41:04 03/12/20 25 03/12/2025 CMP (FEMA LE) A/G ratio 1.5 ratio Not Available [facility] [address] [facility] [address], [place], [address], 03/12/2025 12:41:04 03/12/20 25 03/12/2025 CMP (FEMA LE) ALP phos 79.0 U/L 30.0-1 40.0 normal Not Available [facility] [address] [facility] [address], [place], [address], 03/12/2025 12:41:04 03/12/20 25 03/12/2025 CMP (FEMA LE) calcium 9.8 mg/dL 8.4-10 .5 Not Available [facility] [address] [facility] [address], [place], [address], 03/12/2025 12:41:04 03/12/20 25 03/12/2025 CMP (FEMA LE) sodium 138.0 mmol/ L 136.0- 145.0 Not Available [facility] [address] [facility] [address], [place], [address], 03/12/2025 12:41:04 03/12/20 25 03/12/2025 CMP (FEMA LE) potassium 4.0 mmol/ L 3.5-5. 1 Not Available [facility] [address] [facility] [address], [place], [address], 03/12/2025 12:41:04 03/12/20 25 03/12/2025 CMP (FEMA LE) chloride 105.0 mmol/ L 98.0-1 10.0 normal Not Available [facility] [address] [facility] [address], [place], [address], 03/12/2025 12:41:04 03/12/20 25 03/12/2025 CMP (FEMA LE) C02 27.0 mmol/ L 22.0-3 1.0 Not Available [facility] [address] [facility] 1, [place], [address], 03/12/2025 12:41:04 03/12/20 25 03/12/2025 CMP (FEMA LE) anion gap 6.0 calc Not Available [facility] [address] [facility] 1, [place], [address], 03/12/2025 12:41:04 03/12/20 25 03/12/2025 CMP (FEMA LE) osmolality 285.7 calc Not Available [facility] [address] [facility] 1, [place], [address], 03/12/2025 12:41:04 03/12/20 25 03/12/2025 PT/IN R Protime 12.9 Not Available [facility]) [address] [place], [address], 03/12/2025 12:06:00 03/12/20 25 03/12/2025 PT/IN R INR 1.1 Not Available [facility] ([facility]) [address] [place], [address], 03/12/2025 12:06:00 02/04/20 25 02/03/2025 XR, whole body No observ ation record ed. [email or web address] [facility] [address] [place], [address], 02/16/2025 08:50:22 02/04/20 25 01/31/2025 XR, shoul deborah, 2 or more view No observ ation record ed. [email or web address] Not Available 2024 08:50:22 02/09/20 25 02/08/2025 CT, chest , w/ contr ast No observ ation record ed. [address] [place], [address], 02/16/2025 08:50:22 02/09/20 25 02/08/2025 CT, chest , w/ contr ast No observ ation record ed. [address] [place], [address], 02/16/2025 08:50:22 02/10/20 25 02/09/2025 MRI, upper extre mity, w/ contr ast No observ ation record ed. [address] [place], [address], 02/16/2025 08:50:08 02/16/20 25 02/11/2025 MRI, upper extre mity, w/ contr ast No observ ation record ed. [address] [facility] [address] [place], [address], 02/16/2025 08:50:03 03/26/20 25 03/15/2025 imagi ng/di agnos tic resul t No observ ation record ed. [email or web address]11 [facility] [address] [place], [address], 03/29/2025 16:30:29 04/19/20 25 04/13/2025 XR, shoul deborah, 2 or more view No observ ation record ed. [email or web address] [facility] [address] [place], [address], 04/19/2025 16:47:31 Result Notes None recorded. Problems Name Problem SNOMED Code Status Onset Date Resolution Date Notes Provider Name and Address Organization Details Recorded Time Colonosco py abnormal 915076417 Active 2024 MONTSE Jimenez - [facility], L.LSolo 11:14:05 Urinary incontine [facility] 043588003 Active 2024 TURNER CABELLO elvira [facility], Cynthia 5 08:24:57 Neoplasm of bone 721319033 Active 2024 [facility]INEY [facility]atra 5 08:24:22 Pulmonary embolism 99404936 Active 2024 [facility]NER [facility]STINEY [facility], PacoLSolo 5 08:24:27 Closed fracture of shaft of right humerus 498227590049 50676 Completed 202403/15/2025 Summer felix [facility], Cynthia 5 11:14:26 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 Procedures Surgical History Date Name Laterality Status Provider Name and Address Organization Details Recorded Time hysterectomy completed [facility] 02/03/2025 08:32:54 [facility] 02/03/2025 08:34:10 internal fixation using intramedullary nail [facility] 04/13/2025 15:06:57 Imaging Results None recorded. Procedure Notes None recorded. Medical Equipment None Reported. Allergies No known drug allergies Medications Name Sig Start Date Stop Date Status Note LastModified by Organization Details LastModified Time cyclobenz aprine 10 mg tablet TAKE 1 TABLET BY MOUTH TWICE DAILY NEEDED 02/03 completed Not Available Not Available Not Available methocarb nancy 500 mg tablet TAKE 1 TABLET BY MOUTH 4 TIMES DAILY NEEDED FOR MUSCLE SPASM 04/13 completed Not Available Not Available Not Available trazodone 50 mg tablet TAKE 1 TABLET BY MOUTH ONCE DAILY AT BEDTIME 04/13 completed Not Available Not Available Not Available ondansetr on HCl 8 mg tablet TAKE 1 TABLET BY MOUTH THREE TIMES DAILY FOR CANCER RELATED NAUSEA active Not Available Not Available No t Available prednison e 20 mg tablet TAKE 2 TABLETS BY MOUTH ONCE DAILY FOR 5 DAYS 02/03 completed Not Available Not Available Not Available acetamino phen 300 mg-codein e 30 mg tablet TAKE 1 TO 2 TABLETS BY MOUTH EVERY 8 HOURS NEEDED FOR PAIN 02/03 completed Not Available Not Available Not Available hydrocodo ne 10 mg-acetam inophen 325 mg tablet TAKE 1 TABLET BY MOUTH EVERY 6 HOURS NEEDED 04/13 completed Not Available Not Available Not Available ketorolac 10 mg tablet TAKE 1 TABLET BY MOUTH EVERY 6 HOURS NEEDED FOR PAIN FOR UP TO 5 DAYS 04/13 completed Not Available Not Available Not Available amoxicill in 875 mg tablet TAKE 1 TABLET BY MOUTH TWICE DAILY UNTIL GONE 02/03 completed Not Available Not Available Not Available oxycodone -acetamin ophen 10 mg-325 mg tablet TAKE 1 TABLET BY MOUTH EVERY 4-6 HOURS FOR PAIN active Not Available Not Available No t Available trazodone 150 mg tablet Take 1 tablet every day by oral route for 30 days. 2024 active Not Available Not Available Not Avai lable naproxen 500 mg tablet TAKE 1 TABLET BY MOUTH TWICE DAILY WITH FOOD 02/03 completed Not Available Not Available Not Available escitalop reece 10 mg tablet TAKE 1 TABLET BY MOUTH ONCE DAILY active Not Available Not Available No t Available Antacid 02/03 completed 0; Recorded 04/05/20 1:39PM by Joanna Jennings LPN, Office Visit; Not Available Not Available Not Available melatonin 10 mg tablet Take 1 tablet every day by oral route. 03/15 completed Not Available Not Available Not Available Eliquis 5 mg tablet TAKE 1 TABLET BY MOUTH TWICE DAILY active Not Available Not Available No t Available Vitals Date Recorded Body height Body mass index (BMI) Body weight Body temperature Heart rate Oxygen saturation Oxygen saturation in Arterial blood by Pulse oximetry Systolic blood pressure Diastolic blood pressure Provider Name and Address Organization Details Last Updated DateTime 5 162.56 cm 42.1 kg/m2 382610. 13 g 97.8 [degF] 80 /min 97 % 97 % 148 mm[Hg] 72 mm[Hg] [facility] 08:30:18 Date Recorded Body height Body mass index (BMI) Body weight Body temperature Heart rate Oxygen saturation Oxygen saturation in Arterial blood by Pulse oximetry Systolic blood pressure Diastolic blood pressure Provider Name and Address Organization Details Last Updated DateTime 5 162.56 cm 42.1 kg/m2 845797. 13 g 97.6 [degF] 75 /min 97 % 97 % 142 mm[Hg] 80 mm[Hg] [facility] 5 08:32:16 Date Recorded Body height Body temperature Heart rate Oxygen saturation Oxygen saturation in Arterial blood by Pulse oximetry Systolic blood pressure Diastolic blood pressure Provider Name and Address Organization Details Last Updated DateTime 5 162.56 cm 97.7 [degF] 69 /min 96 % 96 % 168 mm[Hg] 108 mm[Hg] [facility] 5 09:06:41 Date Recorded Body height Body mass index (BMI) Body weight Body temperature Heart rate Oxygen saturation Oxygen saturation in Arterial blood by Pulse oximetry Systolic blood pressure Diastolic blood pressure Provider Name and Address Organization Details Last Updated DateTime 5 162.56 cm 41.2 kg/m2 372219. 17 g 97.8 [degF] 81 /min 97 % 97 % 138 mm[Hg] 88 mm[Hg] [facility] 5 13:17:15 Social History None recorded. Functional Status Question Answer Note LastModified by Organizat ion Details LastModified Time Do you use any illicit or recreational drugs? No [email or web address] Information not available 02/03/2025 Do you or have you ever used any other forms of tobacco or nicotine? No [email or web address] Information not available 02/03/2025 What is your level of alcohol consumption? None [email or web address] Information not available 02/03/2025 Do you or have you ever used any nicotine-free cigarettes, vape, or chewing tobacco? No Information not available 02/03/2025 Mental Status None recorded. Family History Relationship Description Onset Age of this Age Resolved Age Notes LastModified by Organization Details LastModified Time Father Myocardial infarction [email or web address] Not available 06/2025 08:35:39 Medical History No medical history recorded. Gynecological HistoryNo gynecological history recorded. Obstetrics History GPAL:G 0 P 0 0 0 0 Past Encounters Encounter ID Performer Location Encounter Start Date Encounter Closed Date Diagnosis/Indication Diagnosis SNOMED-CT Code Diagnosis ICD10 Code Diagnosis Note [id number] Ryne Madison MD [facility] ([facility]) [address] [place] [phone] 02/03/2025 08:17:45 02/04/2025 08:04:15 Fatigue 74415824 R53.83 Neoplasm of bone 8792997 00 D49.2 has had hysterecto my with bilateral oophorecto mycolon polyps on colonoscop y 14 years ago was supposed to repeat in 1 year she thinks. She did not follow up. will need ortho referral and likely MRI of the humerus. will get her basic labs and start her overall workup today and direct care once we have more definitive results. 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 Pulmonary embolism 51687 003 I26.99 [id number] Ryne Madison MD [facility] ([facility]) [address] [place] [phone] 03/12/2025 12:04:05 03/15/2025 10:35:43 Long-term current use of anticoagulant 311201188 Z79.01 [id number] Ryne Madison MD [facility] ([facility]) [address] [place] [phone] 03/15/2025 08:55:06 03/15/2025 15:49:52 Closed fracture of shaft of right humerus 3321556833 3977295 S42.301A will need premedicat ion for imaging. need to assess for progressio n of fracture, thrombosis primarily as causes of her intractabl e pain. if urgent findings requiring hospitaliz ation would recommend transfer to [place] as she has bx scheduled there with Dr. Briseno. 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 45713695 F41.1 C80.1 Insomnia 966763735 G47.0 9 Health Concerns Section Related Observation LastModified by Organization Detai ls LastModified Time None Recorded Concern Status LastModified by Organization Details LastModified Time None Recorded Advance Directives Directive None Recorded Payers Insurance Date Sequence Insurance Name Policy Number Policy Hernandez Covered Member ID Hernandez Member ID Guarantor Name 04/13/2025 1 [place]ANT[place] - [place]PO) [id number] Mabel Carr [id number] Mabel Carr 03/23/2025 1 [place] [id number] Mabel Carr [id number] Mabel Carr Notes Date Note Type Note Provider Name and Address Organization Details Recorded Time 02/03/2025 text/html Musculoskeletal PainRep[facility] Duration:present for 1-6 months (8 weeks) Timing:constant Context:recent x-ray taken at an ER shows a bone lesion, concerning for cancer Alleviating Factors:rest; medications: hydrocodone; she has been using a sling. She was told by the ER doctor that she needed to use this because there is a fear of her arm breaking with a lot of movement. Aggravating factors:movement/posi tioning Associated Symptoms:decreased and painful ROM ADLs Affected:bathing; dressing; eating outside xray report reviewed and scanned6.7 cm right humerus lytic lesion ill-defined Ryne Madison MD [address] [place] [address], [phone], [facility] 02/03/2025 09:19:59 02/16/2025 text/html Musculoskeletal PainReported bypatient.Location:[facility] arm Duration:present for 1-6 months (10 weeks) Timing:constant Alleviating Factors:rest; medications: hydrocodone; she continues to use a sling Aggravating factors:movement/posi tioning Associated Symptoms:decreased and painful ROM ADLs Affected:bathing; dressing; eating Prior Tests/Treatmentsprevi ous MRINotes:we will have a spint made for her today to help alleviate the discomfort. i have contacted local ortho and they feel she needs to be managed by a referral center. Ryne Madison MD [address] [place] [address], [phone], [facility] 02/16/2025 09:22:47 03/15/2025 text/html Pt is in uncontr olled pain related to her cancer. She is having the most pain along the back of her upper right arm. It has been worse and unmanageable for the past 2 days. Ryne Madison MD [address] [place] [address], [phone], [facility] 03/15/2025 09:46:01 04/13/2025 text/html Musculoskeletal PainReported bypatient.Location:[facility] shoulder Quality:sharp Duration:present <1 month (2 days)Notes:Pt believes she injured her shoulder pushing against it too hard while repositioning in her recliner. Pt was started on trazodone 50mg. This did not help much, so it was increased to 100mg. She tried this 1 night and didn't sleep at all so she stopped taking it entirely. Ryne Madison MD [address] [place], [address], [facility], Cynthia 04/13/2025 14:00:08 OBGyn Episode No OBEpisode recorded.
--- NOTE | 2025-04-23 12:33 | CT_ITS ---
WS: [id number] CT HEAD NONCONTRAST HISTORY: headache TECHNIQUE: Contiguous axial imaging performed through the brain. Bone and soft tissue windows. Sagittal and coronal reformats reviewed. All CT scans at [facility] use at least one of these dose optimization techniques: automated exposure control; mA and/or kV adjustment per patient size (includes targeted exams where dose is matched to clinical indication); or iterative reconstruction. DLP: 1016.48 mGy.cm COMPARISON: None available. No acute intracranial hemorrhage, midline shift or mass effect. Mild atrophy and small vessel disease. No prior infarct. Ventricles: Normal size with no hydrocephalus. Atherosclerotic plaque and calcification of the intracranial carotid arteries through the cavernous sinuses. Paranasal sinuses: Air-fluid levels in the sphenoid sinuses. Sphenoid wings are aerated and also contain air-fluid levels which are contiguous with the sphenoid sinuses. Small osteoma LEFT frontal sinus. Mastoid air cells: Well pneumatized. Calvarium and scalp: Skull is intact with no soft tissue edema or swelling. CT/CT head wo con* [id number] IMPRESSION: 1. No acute intracranial hemorrhage or edema. 2. Acute sphenoid sinusitis. Air-fluid levels within the sphenoid sinuses with expansion of the sphenoid sinuses into the sphenoid wing. 3. Mild small vessel disease and mild atrophy.
--- NOTE | 2025-04-23 12:35 | W.ED.HA ---
HPI - Headache General: Chief Complaint: Headache Stated Complaint: lt side numbness Time Seen by Provider: 04/23/25 11:12 Source: patient and family Mode of arrival: ambulatory Limitations: no limitations History of Present Illness: This patient made her way to the Emergency Department today because of concerns about some intermittent and fluctuating left lower face numbness. She has also had what she calls a sinus headache. She states it has been present across her lower face and her eyes over the past several days as well. The headache is also been fluctuating and not severe or sudden onset. She denies any fevers or chills or falls. She denies any concomitant visual changes, ear pain, difficulty with numbness or weakness. No speech changes. She denies any recent URI symptoms. She does have a recent diagnosis of multiple myeloma and is had a recent internal fixation of her right humerus secondary to pathologic fracture. She just completed 4-day course of dexamethasone. She also takes Eliquis that she had incidental diagnosis of pulmonary embolus during her oncology workup. She has not begun her radiation therapy for her bony disease as of yet. She denies any recent falls or concomitant fevers chills chest pain shortness of breath or other constitutional symptoms. Location: left Associated symptoms: Deny chest pain, fever(s), nausea, rash or vomiting Related Data Home Medications ?Medication ?Instructions ?Recorded ?Confirmed apixaban 5 mg tablet (Eliquis) 5 mg PO BID 02/24/25 04/23/25 ivermectin 3 mg tablet 3 mg PO DAILY 02/24/25 04/23/25 dexamethasone 20 mg tablet 40 mg PO DAILY 04/23/25 04/23/25 escitalopram oxalate 10 mg tablet 10 mg PO DAILY 04/23/25 04/23/25 ondansetron HCl 8 mg tablet 8 mg PO TID PRN cancer related 04/23/25 04/23/25 nausea trazodone 150 mg tablet 150 mg PO BEDTIME 04/23/25 04/23/25 Previous Rx's ?Medication ?Instructions ?Recorded oxycodone-acetaminophen 10 mg-325 1 tab PO Q8H PRN pain #20 tabs 03/15/25 mg tablet (Percocet) lisinopril 5 mg tablet 5 mg PO DAILY #30 tabs 04/23/25 Allergies Allergy/AdvReac Type Severity Reaction Status Date / Time No Known Drug Allergies Allergy Mild Unknown Verified 04/23/25 09:14 Review of Systems Const: Denies: fever(s) or chills Eyes: Denies: change in vision or blurry vision ENMT: Denies: throat pain, odynophagia, ear or mastoid pain, nasal discharge or nasal congestion Card: Denies: chest pain or palpitations Resp: Denies: dyspnea, productive cough or non-productive cough GI: Denies: nausea, vomiting or diarrhea : Denies: flank pain, difficulty voiding or dysuria Musc: Reports: extremity pain; Denies: neck pain or back pain Skin/Breast: Denies: rash Neuro: Reports: headache(s); Denies: numbness in extremities, weakness in extremities, dizziness or seizure-like activity Psych: Denies: anxiety or depression Issac/Lymph: Reports: easy bruising PFSH ED PFSH: Social History Smoking and tobacco/nicotine status: never used tobacco/nicotine Physical Exam Narrative: EXAM NARRATIVE: She is alert interactive and in no acute distress. Const: COMMON NORMALS: no acute distress, patient oriented x3, healthy appearing and alert NUTRITIONAL APPEARANCE: overweight HENMT: COMMON NORMALS: normocephalic, atraumatic, EAC's normal and TM's normal bilaterally HEAD & SCALP: normocephalic and atraumatic; no scalp tenderness and no Temporal artery tenderness present FACE & SINUS: normal facial exam and face symmetric; no sinus tenderness EXTERNAL AUDITORY CANAL: EAC's normal TYMPANIC MEMBRANE: TM's normal bilaterally Eye: COMMON NORMALS: Equal, round and reactive pupils present, EOMs intact bilaterally and conjunctivae normal CONJUNCTIVA: Yes conjunctivae normal PUPIL: Yes Equal, round and reactive pupils present Neck/C-Spine: COMMON NORMALS: full ROM, no lymphadenopathy and no JVD Chest: COMMONS NORMALS: normal inspection of the chest Resp: COMMON NORMALS: normal respiratory effort, No retractions and No use of accessory muscles EFFORT & INSPECTION: Yes able to speak in complete sentences Cardio: COMMON NORMALS: no JVD, regular rate, regular rhythm and Peripheral pulses 2+ throughout RATE: regular rate RHYTHM: regular rhythm PERIPHERAL PULSES: Peripheral pulses 2+ throughout GI: COMMON NORMALS: Normal to inspection, nondistended, normoactive bowel sounds present : COMMON NORMALS: Yes no CVA tenderness BLADDER/KIDNEY EXAM: Yes no CVA tenderness Back/Pelvis: COMMON NORMALS: no CVA tenderness, thoracic and lumbar spine normal to inspection and no thoracic nor lumbar tenderness Extremity: COMMON NORMALS: capillary refill normal, no calf tenderness and no pedal edema NARRATIVE EXTREMITY EXAM: She has limitations in range of motion of her right shoulder but otherwise no other focal findings on her extremity examination. Neuro: COMMON NORMALS: patient oriented x3 and moves all extremities SENSORIUM/ORIENTATION: Yes alert CRANIAL NERVES: Yes CN VII (facial) (No motor weakness she does have sensory deficits on the left lower face) COORDINATION/BALANCE: [id number] test normal and pjif-qt-[id number] test normal SPEECH: speech normal GAIT: Yes Normal gait present COORDINATION: [id number]-[id number] test normal and jlwl-cy-ampr test normal Psych: COMMON NORMALS: mental status grossly normal Skin: COMMON NORMALS: no rashes or lesions noted, no wounds and turgor normal GENERAL SKIN EXAM: no rashes or lesions noted and turgor normal Course Reevaluation(s): Reevaluation #1: Blood pressure is remained elevated in the emergency department with observation. I did a manual cuff blood pressure left arm and she was 210/110. At this point given the fact that we have observed her here for period time and her blood pressure is not significantly changed I am concerned that she may have occult undiagnosed hypertension. I think at this point I would feel more comfortable in initiating a low-dose of lisinopril. She has normal renal function and normal electrolytes. She is open to this and we will go ahead and proceed and reassess her in a bit. No other change in her clinical condition. Time: 14:24 Reevaluation #2: Repeat blood pressure is now 188/92 by manual cuff left arm taken by me. She states her headache is improved and she feels constitutionally improved. I discussed her symptoms are probably multifactorial that could be related to blood pressure elevation as well as her ethmoid sinusitis. No indication for antibiotics at this time as she only has air-fluid levels with no evidence of fever or prolonged symptoms etc. We recommend hydration to the sinuses with either Kelly pot, nasal saline spray etc. With regards to her hypertension I think it is reasonable for us to start a low-dose of lisinopril in the emergency department and have her monitor her blood pressure and follow-up with her doctor early next week for reassessment of her blood pressure and medication adjustments as indicated. In addition I explained to her that there is no evidence of hemorrhagic or nonhemorrhagic stroke by CT and given that she is having fluctuating left facial numbness it may be related to blood pressure or certainly it could be related to her sinuses or even as a third possibility prodromes of Mehta's palsy. Discussed the lack of certainty on any of the differential and that close follow-up is important to include returning to the emergency department for any progressive or worsening symptoms or and following up with her regular doctor. Both she and her voiced understanding of the implications and limitations of her evaluation today and were appreciative of care. Time: 15:47 Vital Signs: Vital signs: Vital Signs Temperature 97.4 F L 04/23/25 09:07 Pulse Rate 62 04/23/25 13:51 Respiratory Rate 17 04/23/25 13:51 Blood Pressure 195/113 04/23/25 13:51 Pulse Oximetry 98 04/23/25 13:51 Oxygen Delivery Me thod Room Air 04/23/25 13:51 MDM - Headache Medical Decision Making Patient presented as noted in HPI. Current initial evaluation does not suggest a central nervous system issue at this time. Certainly could be early symptoms of Mehta's palsy although she does not display any motor weakness at this time. No rashes noted that would suggest HSV. Will going proceed with sed rate, imaging and further evaluation. She is hypertensive and does not take any antihypertensive medicines. Her CT scan was reassuring without evidence of intracranial hemorrhage, or midline shift or other concerning acute finding other than air-fluid level in her ethmoid sinuses. Her sed rate is normal. Monitoring her blood pressure in the emergency department noted she was persistently hypertensive. Due to the persistent nature and elevation of her blood pressure was felt given her current presentation to be in her best interest to initiate oral antihypertensive in the emergency department. That was done and her blood pressure dropped by approximately 10% from its highest number. During the time in the emergency department she had no constitutional change or worsening of her condition although she did state that her headache improved after her blood pressure was reduced. Her current presentation and her clinical picture does not suggest a DATA WAREHOUSING MANAGER related issue with her left lower face numbness which is minimal at best. She has no other focal findings to suggest occult DATA WAREHOUSING MANAGER issue at this time. The possibilities from of her left facial numbness could be related to prodrome of Mehta's palsy or other less worrisome conditions and this was discussed with both she and . She is on an anticoagulant, we are initiating blood pressure control, we have discussed the need for close follow-up to include returning to the emergency department for any new or worsening symptoms etc. with both she and spouse. At this time she is desirous to be discharged from the emergency department. We again reviewed the uncertainty of her diagnosis at this time and she voiced understanding. Lab Data I reviewed the patient's lab results. 04/23/25 13:11 04/23/25 13:[address] 04/23/25 12:33 IMPRESSION: 1. No acute intracranial hemorrhage or edema. 2. Acute sphenoid sinusitis. Air-fluid levels within the sphenoid sinuses with expansion of the sphenoid sinuses into the sphenoid wing. 3. Mild small vessel disease and mild atrophy. Laboratory Results WBC 8.81 10^3/uL (3.29-11.43) 04/23/25 13:11 RBC 4.12 10^6/uL (3.85-5.65) 04/23/25 13:11 Hgb 12.50 g/dL (11.27-16.99) 04/23/25 13:11 Hct 37.2 % (36-47) 04/23/25 13:11 MCV 90.3 fl (85-98) 04/23/25 13:11 MCH 30.3 pg (27-33) 04/23/25 13:11 MCHC 33.6 g/dL (30-55) 04/23/25 13:11 RDW 12.7 % (12.1-15.1) 04/23/25 13:11 Plt Count 319 10^3/cmm (157-399) 04/23/25 13:11 MPV 10.7 fL (7.4-10.4) H 04/23/25 13:11 Neut % (Auto) 73.1 % 04/23/25 13:11 Lymph % (Auto) 19.0 % 04/23/25 13:11 Flagler % (Auto) 7.5 % 04/23/25 13:11 Eos % (Auto) 0.0 % 04/23/25 13:11 Baso % (Auto) 0.1 % 04/23/25 13:11 Neut # (Auto) 6.44 10^3/uL (1.8-7.7) 04/23/25 13:11 Lymph # (Auto) 1.7 10^3/uL (0.8-4.8) 04/23/25 13:11 Flagler # (Auto) 0.7 10^3/uL (0.2-0.9) 04/23/25 13:11 Eos # (Auto) 0.0 10^3/uL (0.0-0.8) 04/23/25 13:11 Baso # (Auto) 0.0 10^3/uL (0.0-0.1) 04/23/25 13:11 Nucleated RBC % (auto) 0 % 04/23/25 13:11 Nucleated RBCs # 0.0 /100WBC 04/23/25 13:11 ESR 5 mm/hr (0-15) 04/23/25 13:11 Sodium 134 mmol/L (136-145) L 04/23/25 13:11 Potassium 4.0 mmol/L (3.5-5.1) 04/23/25 13:11 Chloride 97 mmol/L (98-107) L 04/23/25 13:11 Carbon Dioxide 24 mmol/L (22-29) 04/23/25 13:11 Anion Gap 17.0 (5-19) 04/23/25 13:11 BUN 24 mg/dL (8-23) H 04/23/25 13:11 Creatinine 0.6 mg/dL (0.5-0.9) 04/23/25 13:11 GFR Calculation Not Reportable 04/23/25 13:11 Glucose 111 mg/dL (65-115) 04/23/25 13:11 Calculated Osmolality 283 mOsm/kg (285-295) L 04/23/25 13:11 Calcium 9.7 mg/dL (8.5-10.5) 04/23/25 13:11 All radiology interpretation(s) finalized by discharge Discharge Plan Discharge Patient Disposition: Home Clinical Impression: Elevated blood pressure reading Ethmoid sinusitis Qualifiers: Chronicity: acute Recurrence: not specified as recurrent Qualified Code(s): J01.20 - Acute ethmoidal sinusitis, unspecified Headache Qualifiers: Headache type: unspecified Multiple myeloma Qualifiers: Multiple myeloma remission status: unspecified Qualified Code(s): C90.00 - Multiple myeloma not having achieved remission Condition: Stable Prescriptions: New lisinopril 5 mg tablet 5 mg PO DAILY Qty: 30 0RF No Action Eliquis 5 mg tablet 5 mg PO BID ivermectin 3 mg tablet 3 mg PO DAILY oxycodone-acetaminophen [Percocet] 10-325 mg tablet 1 tab PO Q8H PRN (Reason: pain) Qty: 20 0RF escitalopram oxalate 10 mg Tablet 10 mg PO DAILY dexamethasone 20 mg Tablet 40 mg PO DAILY ondansetron HCl 8 mg tablet 8 mg PO TID PRN (Reason: cancer related nausea) trazodone 150 mg tablet 150 mg PO BEDTIME Discharge Orders: Discharge ED (Routine); Ordered 04/23/25 Ordered By: Rubén Cassidy Referrals: Ryne Madison MD [Primary Care Provider, [facility]] Discharge Diet: Usual diet Discharge Activity: Increase activity as tolerated Patient Instructions: Opioid Safety, Pain Management, Patient Portal & Wiley Instructions Activity Restrictions/Additional Instructions: As we discussed while you are in the emergency department today your imaging of your brain and head did not show any evidence of stroke either from bleeding or blood clot. You did have a persistent high blood pressure in the emergency department and we have initiated a low-dose of lisinopril to take 5 mg daily. We also have evidence of fluid in your sinuses and we recommend sinus rinses either with a Kelly pot or saline spray to help alleviate that condition. Your left facial numbness is not clear as to its cause but it certainly might be related to either your blood pressure or your sinuses but also can be related to may be an early Mehta's palsy. Should it be the latter condition you should watch for any worsening symptoms and if they occur you should come to the emergency department for recheck. In the meantime you should take the medications prescribed and follow-up with your doctor early next week to review your blood pressure and other symptoms. If it anytime you have any other concerns you are welcome to return to the emergency department for reevaluation. Print Language: Malay Coding Level of Care Code ED Electric Tape Slitter for Yeison Xie
[2025-04-23 13:29] LABS: Basophils % 0.1 %; Hematocrit 37.2 % (36-47); Lymphocytes # 1.7 10^3/uL (0.8-4.8); Mean Corpuscular HGB Conc 33.6 g/dL (30-55); Mean Corpuscular Hemoglobin 30.3 pg (27-33); Mean Corpuscular Volume 90.3 fl (85-98); Mean Platelet Volume 10.7 fL (7.4-10.4); Monocytes # 0.7 10^3/uL (0.2-0.9); Monocytes % 7.5 %; Neutrophils # 6.44 10^3/uL (1.8-7.7); Neutrophils % 73.1 %; Nucleated Red Blood Cells % 0 %; Platelet Count 319 10^3/cmm (157-399); Red Blood Count 4.12 10^6/uL (3.85-5.65); Red Cell Distribution Width 12.7 % (12.1-15.1); White Blood Count 8.81 10^3/uL (3.29-11.43)
[2025-04-23 13:46] LABS: Blood Urea Nitrogen 24 mg/dL (8-23); Calcium 9.7 mg/dL (8.5-10.5); Carbon Dioxide 24 mmol/L (22-29); Chloride 97 mmol/L (98-107); Glucose 111 mg/dL (65-115); Osmolality Calculated 283 mOsm/kg (285-295); Sodium 134 mmol/L (136-145)
[2025-04-23 14:02] LABS: Erythrocyte Sedimentation Rate 5 mm/hr (0-15)
[2025-04-23] MEDS: lisinopril 10 mg Tablet PO (14:55)
== END 2025-04-23 16:33 | disposition home or self-care (01) ==
PROVIDERS: Emergency Provider Emergency Medicine; PCP Family Medicine
DX: R03.0 Elevated blood-pressure reading, without diagnosis of hypertension (principal); J01.20 Acute ethmoidal sinusitis, unspecified; R51.9 Headache, unspecified; C90.00 Multiple myeloma not having achieved remission; Z79.01 Long term (current) use of anticoagulants
CPT/HCPCS: 36415; 70450; 80048; 85025; 85651; 99284; J9999

== ENCOUNTER 2025-04-27 05:00 | Outpatient (RCR) | payer MEDICARE, SELFPAY | END 2025-05-27 23:59 | disposition home or self-care (01) | LOC: SPT 05:00 | PROVIDERS: PCP Family Medicine; Visit Provider Registered Nurse | DX: M84.521D Pathological fracture in neoplastic disease, right humerus, subsequent encounter for fracture with routine healing (principal); C90.00 Multiple myeloma not having achieved remission | CPT/HCPCS: 97110 ==

== ENCOUNTER 2025-05-17 07:30 | Oncology outpatient (recurring) (ONCR) | payer MEDICARE, SELFPAY ==
[2025-04-28 09:02] LABS: Hematocrit 37.8 % (36-47); Hemoglobin 12.30 g/dL (11.27-16.99); Mean Corpuscular HGB Conc 32.5 g/dL (30-55); Mean Corpuscular Hemoglobin 30.1 pg (27-33); Mean Corpuscular Volume 92.4 fl (85-98); Nucleated Red Blood Cells % 0 %; Platelet Count 242 10^3/cmm (157-399); Red Blood Count 4.09 10^6/uL (3.85-5.65); White Blood Count 6.35 10^3/uL (3.29-11.43)
[2025-04-28 09:15] LABS: Alanine Aminotransferase 8 U/L (0-33); Albumin Level 3.9 g/dL (3.5-5.2); Alkaline Phosphatase 95 U/L (35-105); Anion Gap 15.9 (5-19); Aspartate Amino Transferase 9 U/L (0-32); Blood Urea Nitrogen 11 mg/dL (8-23); Calcium 8.9 mg/dL (8.5-10.5); Carbon Dioxide 25 mmol/L (22-29); Chloride 103 mmol/L (98-107); Creatinine Clr Calc Pharmacy 79.1620; Globulin 2.4 g/dL (1.3-4.6); Glucose 118 mg/dL (65-115); Osmolality Calculated 290 mOsm/kg (285-295); Potassium 3.9 mmol/L (3.5-5.1); Sodium 140 mmol/L (136-145); Total Protein 6.3 g/dL (6.6-8.7)
--- NOTE | 2025-04-28 13:19 | N.ONRAD NP_ITS ---
Radiation Oncology New Patient Visit Patient: Mabel Carr MR#: [id number] : 1955 Age: 69 Sex: Female Dictated by: Vargas Self DO/ZENA/LUCHO Date of Service: 04/28/2025 Referring Physician(s) : Dr. Ryne Madison , DR. SOLIS Diagnosis: C79.51 - secondary malignant neoplasm of bone, Diagnosed 04/27/2025 (active) and C90.00 - multiple myeloma not having achieved remission, Diagnosed 03/18/2025 (active). MM DX 03/2025, KLC-MM, ORIF right humerus at [facility] 03/2025, PET/CT 03/19/2025 show right mid humeral shaft lytic lesion cysts 7 cm, left acromion lesion suspicious for malignancy 2.9 cm. STAGE: IIIA ICD-10: C90.00, C79.51 Radiotherapy to date: Summary > No prior radiation therapy. Chief Complaint / History of Present Illness: I have Multiple Myeloma. 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 ER x-rays of the right shoulder and elbow on 01/31/2025 showed ill-defined lytic lesion in the right mid humerus measuring 6.7 cm. She was placed in a right arm sling. Skeletal survey on 02/03/2025 showed lytic lesions bilateral humeral diaphysis, right greater than left, left scapular acromion process involvement and right proximal femur. MRI of the right humerus on 02/11/2025 showed heterogeneous enhancing lytic metastasis humeral shaft with bony expansion and cortical breakthrough measuring 6.5 x 2.1 cm and a smaller satellite met lesion measuring 1.9 x 1 cm there is evidence of pathologic fracture in the area of cortical breakthrough and said soft tissue edema. 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 PET/CT on 03/19/2025 showed a right mid humeral shaft lytic lesion 7 cm, left acromial lesions suspicious for malignancy 2.9 cm. Current Medications: apixaban (Eliquis) 5 mg PO BID dexamethasone 40 mg PO DAILY escitalopram oxalate 10 mg PO DAILY ivermectin 3 mg PO DAILY PRN lisinopril 5 mg PO DAILY ondansetron HCl 8 mg PO TID PRN oxycodone-acetaminophen 10-325 mg (Percocet) 1 tab PO Q8H PRN trazodone 150 mg PO BEDTIME Allergies: No Known Drug Allergies Medical History: No history of collagen vascular disease. No previous radiation therapy. Surgical History: ORIF RT HUMERUS MARCH 2025 Family History: NONCONTRIBUTORY Social History: Smoking and tobacco/nicotine status: never used tobacco/nicotine Current Complaints / Review of Systems: . ABOVE Vital Signs: Performed on 04/28/2025 10:01 AM BMI - 39.938 kg/m2 (high), Height - 65 in, Weight - 240 lbs, Temperature - 98.7 f, Pulse - 68 /min, Respiration - 17 /min, O2 Sat - 98 %, Pain - 0, Fatigue - 0 and BP - 159/ 80 mm(hg)(high/). Physical Exam: AAOX3. RUE HEALING ORIF INCISION. LIMITED ROM RUE (DOING PT AT THIS TIME). LUE LIMITED ROM SECONDARY TO PAIN. QRIP STRENGTH EQUAL. Pain on palpation of the left acromion. Gait normal. Performance Status: KPS 80 Pathology: Primary, c79.51 - secondary malignant neoplasm of bone, Diagnosed 04/27/2025 (active) and Primary, c90.00 - multiple myeloma not having achieved remission, Diagnosed 03/18/2025 (active) . Lab: Imaging: See HPI Impression: C79.51 - secondary malignant neoplasm of bone, Diagnosed 04/27/2025 (active) and C90.00 - multiple myeloma not having achieved remission, Diagnosed 03/18/2025 (active). MM DX 03/2025, KLC-MM, ORIF right humerus at [facility] 03/2025, PET/CT 03/19/2025 show right mid humeral shaft lytic lesion cysts 7 cm, left acromion lesion suspicious for malignancy 2.9 cm. STAGE: IIIA ICD-10: C90.00, C79.51 Plan: Palliative XRT to the RT Humerus s/p ORIF MARCH 2025 Palliative XRT to LEFT Acromion. Consider chemotherapy/immunotherapy for systemic therapy. CT/SIM 05/03/2025 Signed by: 04/28/2025 1:17:40 PM <<Signature on File>> Time spent with patient/: 65 minutes CPT Code: CPT Code:
[2025-04-29 14:45] LABS: KAPPA LIGHT CHAIN, FREE, SERUM 308.6 mg/L (3.3-19.4); KAPPA/LAMBDA LIGHT CHAINS FREE 46.06 (0.26-1.65); LAMBDA LIGHT CHAIN, FREE, SERU 6.7 mg/L (5.7-26.3)
[2025-05-04 10:10] LABS: Protein/Creatinine Ratio 0.078 (<0.150); Protein/Creatinine Ratio 78 mg/g creat (<150)
[2025-05-07 16:05] LABS: ALPHA-1-GLOBULINS 0 %; ALPHA-2-GLOBULINS 0 %; BETA GLOBULINS 0 %; GAMMA GLOBULINS 0 %
--- NOTE | 2025-05-10 13:37 | USCV_ITS ---
Mabel Carr Age: 69 Gender: F : 1955 Exam Date: 05/10/2025 13:56 Ordering Phys: Jake Arriaga MD Technologist: [place] [facility] [place] Indication: cp sob BP: 154 / 82 HR: 71 Rhythm: Sinus Technical Quality: Adequate MEASUREMENTS (Male / Female) Normal Values 2D ECHO LV Diastolic Diameter PLAX 5.0 cm 4.2 - 5.9 / 3.9 - 5.3 cm IVS Diastolic Thickness 1.0 cm 0.6 - 1.0 / 0.6 - 0.9 cm IVS Systolic Thickness 1.6 cm LVPW Diastolic Thickness 1.5 cm 0.6 - 1.0 / 0.6 - 0.9 cm LVPW Systolic Thickness 2.2 cm LVOT Diameter 2.0 cm LV Ejection Fraction 2D Teich 67.8 % LV Ejection Fraction MOD 4C 65.9 % LV Ejection Fraction MOD 2C 64.4 % LV Ejection Fraction 2C AL 64.8 % LA Diameter 2.9 cm RA Systolic Volume 4C AL 29.7 ml RA Systolic Volume 4C MOD 29.5 ml Aorta at Sinotubular Diameter 2.9 cm IVC Diameter 1.4 cm M-MODE LA Ao Ratio MM 1.1 AV Cusp Separation MM 2.2 cm DOPPLER AV Peak Velocity 137.0 cm/s LVOT Peak Velocity 97.0 cm/s AV Area Cont Eq vti 2.9 cm squared AV Area Cont Eq pk 2.3 cm squared MV Peak Velocity 98.0 cm/s MV Area PHT 3.6 cm squared Mitral E to A Ratio 1.0 TV Peak Velocity 191.0 cm/s TR Peak Velocity 201.0 cm/s TR Peak Gradient 16.2 mmHg TV Peak E Velocity 82.0 cm/s PV Peak Velocity 100.5 cm/s FINDINGS Left Ventricle Normal left ventricular size and systolic function, EF 64%.no regional wall motion abnormalities. Right Ventricle The right ventricle is normal in size and function. Right Atrium The right atrium is normal in size. Left Atrium The left atrium is normal in size. Mitral Valve Mild mitral valve regurgitation. Aortic Valve No gross abnormalities noted Tricuspid Valve No gross abnormalities noted Pulmonic Valve No gross abnormalities noted Pericardium Normal pericardium without effusion. Aorta Normal ascending aorta dimension. IVC The inferior vena cava appears normal. CONCLUSIONS Normal left ventricular size and systolic function, EF 64%.no regional wall motion abnormalities. Mild mitral valve regurgitation. Normal chamber sizes There is no pericardial effusion. There are no intracardiac masses. No similar previous studies are available for comparison Dr Prabhu Li MD [facility] (Electronically Signed) Final Date: 12 May 2025 08:11 S
--- NOTE | 2025-05-11 16:45 | ONCRAD TMN_ITS ---
Radiation Oncology Weekly Treatment Management Patient: Mabel Carr MR#: [id number] : 1955 Attending Physician: Dr. Brennon Baltazar Date of Service: 05/11/2025 Referring Physician(s) : Diagnosis: C79.51 - Secondary malignant neoplasm of bone, Diagnosed 04/27/2025 (Active) C90.00 - Multiple myeloma not having achieved remission, Diagnosed 03/18/2025 (Active) Radiotherapy to date: Course: BiLat Shoulders, Treatment Site: Lt Shoulder, Ref. ID: [id number], Energy: 15X, Dose/Fx (cGy): 400, #Fx: 4 / 5, Dose Correction (cGy): 0, Total Dose Delivered (cGy): 1,600, Start Date: 05/06/2025, Elapsed Days: 5 Course: BiLat Shoulders, Treatment Site: Rt Humerus, Ref. ID: [id number], Energy: 6X, Dose/Fx (cGy): 400, #Fx: 4 / 5, Dose Correction (cGy): 0, Total Dose Delivered (cGy): 1,600, Start Date: 05/06/2025, Elapsed Days: 5 Reason for visit: The patient is being seen today as part of their regularly scheduled weekly on treatment visits to assess for acute toxicities from radiotherapy. Review of Systems: Arm pain much better declining from 6 to 3 on 10 scale. Uses rare OC or APAPA. Stools are regular. In PT. Will undergo systemic treatment here with recommendations from med oncologist from [facility]. Vital Signs: Performed on 05/11/2025 1:46 PM BMI - 39.672 kg/m2 (high), Height - 65 in, Weight - 238.4 lbs, Temperature - 96.8 f, Pulse - 81 /min, Respiration - 17 /min, O2 Sat - 96 %, Pain - 0, Fatigue - 0 and BP - 189/ 112 mm(hg)(high). Physical Exam: omitted Imaging: Radiation therapy imaging related to accurate target localization (i.e. KV, MV and CBCT) was reviewed. Appropriate changes, if any, were made to ensure treatment accuracy. Plan: Continue treatment. Complete treatment tomorrow. Signed by: Dr. Brennon Baltazar 05/11/2025 4:44:37 PM
--- NOTE | 2025-05-12 17:19 | N.ONRD TS_ITS ---
Radiation Oncology Treatment Summary Patient: Mabel Carr MR#: [id number] : 1955 Age: 69 Sex: Female Dictated by: Dr. Brennon Baltazar Date of Service: 05/12/2025 Referring Physician(s) : Diagnosis: C79.51 - Secondary malignant neoplasm of bone, Diagnosed 04/27/2025 (Active) C90.00 - Multiple myeloma not having achieved remission, Diagnosed 03/18/2025 (Active) Radiotherapy to Date: Course: BiLat Shoulders, Treatment Site: Lt Shoulder, Ref. ID: [id number], Energy: 15X, Dose/Fx (cGy): 400, #Fx: 5 / 5, Dose Correction (cGy): 0, Total Dose Delivered (cGy): 2,000, Start Date: 05/06/2025, End Date: 05/12/2025, Elapsed Days: 6 Course: BiLat Shoulders, Treatment Site: Rt Humerus, Ref. ID: [email or web address], Energy: 6X, Dose/Fx (cGy): 400, #Fx: 5 / 5, Dose Correction (cGy): 0, Total Dose Delivered (cGy): 2,000, Start Date: 05/06/2025, End Date: 05/12/2025, Elapsed Days: 6 Clinical Summary: The patient tolerated RT well. Pain did improve while on treatment. Plan: End of treatment today. Follow up in one month. Signed by: Dr. Brennon Baltazar>05/12/2025 5:18:40 PM <<Signature on File>>
[2025-05-17 07:35] LABS: Hematocrit 38.7 % (36-47); Hemoglobin 12.90 g/dL (11.27-16.99); Mean Corpuscular HGB Conc 33.3 g/dL (30-55); Mean Corpuscular Hemoglobin 30.0 pg (27-33); Mean Corpuscular Volume 90.0 fl (85-98); Nucleated Red Blood Cells % 0 %; Platelet Count 267 10^3/cmm (157-399); Red Blood Count 4.30 10^6/uL (3.85-5.65); White Blood Count 4.25 10^3/uL (3.29-11.43)
[2025-05-17 07:49] LABS: Alanine Aminotransferase 9 U/L (0-33); Albumin Level 4.0 g/dL (3.5-5.2); Alkaline Phosphatase 97 U/L (35-105); Anion Gap 17.5 (5-19); Aspartate Amino Transferase 12 U/L (0-32); Blood Urea Nitrogen 9 mg/dL (8-23); Calcium 9.0 mg/dL (8.5-10.5); Carbon Dioxide 25 mmol/L (22-29); Chloride 100 mmol/L (98-107); Creatinine Clr Calc Pharmacy 79.1620; Globulin 2.4 g/dL (1.3-4.6); Glucose 140 mg/dL (65-115); Osmolality Calculated 289 mOsm/kg (285-295); Potassium 3.5 mmol/L (3.5-5.1); Sodium 139 mmol/L (136-145); Total Protein 6.4 g/dL (6.6-8.7)
[2025-05-17] MEDS: bortezomib 3.5 mg SDV 2.8 MG SUBCUT (11:17)
[2025-05-17] MEDS: daratumumab-hyaluronidase-fihj 1,800 mg/15 mL SDV 1800 MG SUBCUT (11:18)
[2025-05-17 11:44] VITALS: BP 156/100; PULSE 59; TEMP 36.5; O2SAT 95
== END 2025-05-17 23:59 | disposition home or self-care (01) ==
PROVIDERS: Internal Medicine; Nurse Practitioner Family; PCP Family Medicine; Visit Provider Internal Medicine Medical Oncology
DX: Z53.9 Procedure and treatment not carried out, unspecified reason; Z51.11 Encounter for antineoplastic chemotherapy; Z51.12 Encounter for antineoplastic immunotherapy; C79.51 Secondary malignant neoplasm of bone; C90.00 Multiple myeloma not having achieved remission; I26.99 Other pulmonary embolism without acute cor pulmonale; G89.3 Neoplasm related pain (acute) (chronic); R03.0 Elevated blood-pressure reading, without diagnosis of hypertension; Z79.899 Other long term (current) drug therapy; Z79.01 Long term (current) use of anticoagulants
CPT/HCPCS: 36415; 77290; 77295; 77300; 77334; 77336; 77387; 77412; 77470; 80053; 82570; 83615; 83883; 84166; 85025; 85378; 86335; 93306; 96401; 99024; 99205; 99214; 99215; J9041; J9144; J9999; Q0162

== ENCOUNTER 2025-05-24 11:00 | Oncology outpatient (recurring) (ONCR) | payer MEDICARE, SELFPAY ==
--- NOTE | 2025-05-18 11:45 | XRR_ITS ---
PROCEDURE INFORMATION: Exam: XR Right Shoulder Exam date and time: 05/18/2025 11:54 AM Age: 69 years old Clinical indication: Pain; Shoulder; Prior surgery; Surgery date: 1-6 months; Surgery type: Elvis placed in right arm and cancer in clavicle, recent surgery in right arm. Cancer (type)--multiple myeloma; Additional info: Right shoulder/upper arm pain TECHNIQUE: Imaging protocol: Radiologic exam of the right shoulder. Views: 2 or more views. COMPARISON: CR XR shoulder RT min 2V* [id number] 03/15/2025 9:57 AM FINDINGS: Bones/joints: Intramedullary nail in the right humerus transfixing a previously seen lytic lesion in the mid humeral shaft. No definite acute fracture. No dislocation. [id number] degenerative changes of the acromioclavicular joint. Lungs: Calcified granuloma in the right lung base. Calcified right hilar granulomas. Soft tissues: Normal. XR/XR shoulder RT min 2V* [id number] IMPRESSION: No acute findings.
--- NOTE | 2025-05-18 11:45 | XRR_ITS ---
PROCEDURE INFORMATION: Exam: XR Left Clavicle, Complete Exam date and time: 05/18/2025 11:54 AM Age: 69 years old Clinical indication: Pain; Other: Left clavical; Prior surgery; Surgery date: 1-6 months; Surgery type: Elvis placed in right arm March; HX of multiple myeloma. FX and cancer in clavicle, recent surgery in right arm; Additional info: Left clavicular pain TECHNIQUE: Imaging protocol: Radiologic exam of the left clavicle. Complete exam. Views: Any number of views. COMPARISON: CR XR bone survey* [id number] 02/03/2025 9:32 AM FINDINGS: Bones/joints: No acute fracture or dislocation. Moderate degenerative changes of the acromioclavicular joint. Lungs: Visualized lungs are clear. Vasculature: Atherosclerotic aortic plaques. Soft tissues: Normal. XR/[place] [id number] IMPRESSION: No acute osseous findings.
[2025-05-20 11:29] LABS: Hematocrit 41.4 % (36-47); Hemoglobin 12.80 g/dL (11.27-16.99); Mean Corpuscular HGB Conc 30.9 g/dL (30-55); Mean Corpuscular Hemoglobin 29.7 pg (27-33); Mean Corpuscular Volume 96.1 fl (85-98); Nucleated Red Blood Cells % 0 %; Platelet Count 238 10^3/cmm (157-399); Red Blood Count 4.31 10^6/uL (3.85-5.65); White Blood Count 8.06 10^3/uL (3.29-11.43)
[2025-05-20 12:00] LABS: Alanine Aminotransferase 9 U/L (0-33); Albumin Level 3.8 g/dL (3.5-5.2); Alkaline Phosphatase 83 U/L (35-105); Aspartate Amino Transferase 12 U/L (0-32); Blood Urea Nitrogen 18 mg/dL (8-23); Calcium 9.0 mg/dL (8.5-10.5); Carbon Dioxide 23 mmol/L (22-29); Chloride 101 mmol/L (98-107); Globulin 2.5 g/dL (1.3-4.6); Glucose 82 mg/dL (65-115); Osmolality Calculated 287 mOsm/kg (285-295); Sodium 138 mmol/L (136-145); Total Protein 6.3 g/dL (6.6-8.7)
[2025-05-20 12:03] LABS: Anion Gap 17.6 (5-19); Potassium 3.6 mmol/L (3.5-5.1)
[2025-05-20] MEDS: bortezomib 3.5 mg SDV 2.8 MG SUBCUT (13:10)
[2025-05-24 11:52] LABS: Hematocrit 38.9 % (36-47); Hemoglobin 13.00 g/dL (11.27-16.99); Mean Corpuscular HGB Conc 33.4 g/dL (30-55); Mean Corpuscular Hemoglobin 29.0 pg (27-33); Mean Corpuscular Volume 86.8 fl (85-98); Nucleated Red Blood Cells % 0 %; Platelet Count 152 10^3/cmm (157-399); Red Blood Count 4.48 10^6/uL (3.85-5.65); White Blood Count 4.14 10^3/uL (3.29-11.43)
[2025-05-24 12:09] LABS: Alanine Aminotransferase 10 U/L (0-33); Albumin Level 3.6 g/dL (3.5-5.2); Alkaline Phosphatase 85 U/L (35-105); Anion Gap 16.1 (5-19); Aspartate Amino Transferase 13 U/L (0-32); Blood Urea Nitrogen 6 mg/dL (8-23); Calcium 8.6 mg/dL (8.5-10.5); Carbon Dioxide 27 mmol/L (22-29); Chloride 92 mmol/L (98-107); Creatinine Clr Calc Pharmacy 77.8921; Globulin 2.7 g/dL (1.3-4.6); Glucose 116 mg/dL (65-115); Osmolality Calculated 273 mOsm/kg (285-295); Potassium 3.1 mmol/L (3.5-5.1); Sodium 132 mmol/L (136-145); Total Protein 6.3 g/dL (6.6-8.7)
[2025-05-24] MEDS: daratumumab-hyaluronidase-fihj 1,800 mg/15 mL SDV 1800 MG SUBCUT (14:10)
[2025-05-24] MEDS: bortezomib 3.5 mg SDV 2.8 MG SUBCUT (14:11)
[2025-05-24 14:25] VITALS: BP 124/68; PULSE 78; RESP 19; TEMP 36.4; O2SAT 97
== END 2025-05-24 23:59 | disposition home or self-care (01) ==
PROVIDERS: Nurse Practitioner Family; PCP Family Medicine; Visit Provider Internal Medicine
DX: Z51.11 Encounter for antineoplastic chemotherapy; C79.51 Secondary malignant neoplasm of bone; C90.00 Multiple myeloma not having achieved remission; Z79.899 Other long term (current) drug therapy; Z53.9 Procedure and treatment not carried out, unspecified reason
CPT/HCPCS: 36415; 73000; 73030; 80053; 83615; 85025; 96402; 99213; J9041; J9144; J9999; Q0162

== ENCOUNTER 2025-05-27 07:48 | Oncology outpatient (recurring) (ONCR) | payer MEDICARE, SELFPAY ==
[2025-05-27 08:02] VITALS: BP 136/79; PULSE 65; RESP 16; TEMP 36.6; O2SAT 98
[2025-05-27] MEDS: bortezomib 3.5 mg SDV 2.8 MG SUBCUT (08:48)
== END 2025-05-27 23:59 | disposition home or self-care (01) ==
PROVIDERS: PCP Family Medicine; Visit Provider Internal Medicine
DX: Z51.11 Encounter for antineoplastic chemotherapy (principal); C90.00 Multiple myeloma not having achieved remission; Z79.899 Other long term (current) drug therapy
CPT/HCPCS: 96402; J9041; Q0162

== ENCOUNTER 2025-05-27 17:26 | Inpatient (IN) | payer MEDICARE, SELFPAY ==
[2025-05-27] VITALS (11 sets, daily range): BP systolic 80–139; BP diastolic 53–71; PULSE 71–85; RESP 16–28; TEMP 36.4–36.7; O2SAT 92–98; BMI 38.4
--- NOTE | 2025-05-27 18:49 | XRR_ITS ---
PROCEDURE INFORMATION: Exam: XR Chest Exam date and time: 05/27/2025 6:52 PM Age: 69 years old Clinical indication: Other: Weakness TECHNIQUE: Imaging protocol: Radiologic exam of the chest. Views: 1 view. COMPARISON: CT chest abdpel w/*[id number] 02/08/2025 4:30 PM FINDINGS: Lungs: Hazy opacities in the right lung base. Pleural spaces: Unremarkable. No pleural effusion. No pneumothorax. Heart/Mediastinum: Unremarkable. No cardiomegaly. Bones/joints: Partially visualized humeral fixation hardware XR/XR chest 1V portable [id number] IMPRESSION: Hazy opacities in the right lung base. Differential includes infection versus overlying soft tissue. Lateral radiograph may be helpful in differentiating if clinically indicated.
--- NOTE | 2025-05-27 19:45 | ECG_ITS ---
[employer] Test Date: 2025-05-27 Pat Name: Mabel Carr Department: Room: Gender: Female Materials Associate: : 1955 Requested By: Ester Ibarra Order Number: [id number] Reading MD: TINA BUCK Measurements Intervals Hartly Rate: 79 P: 27 OK: 147 QRS: 8 QRSD: 97 T: 59 QT: 371 QTc: 427 Interpretive Statements SINUS RHYTHM NONSPECIFIC ST & T-WAVE ABNORMALITY No previous ECG available for comparison Electronically Signed On 05-27-2025 22:16:58 CDT by TINA BUCK [email or web address] [id number]
[2025-05-27 20:28] LABS: Hematocrit 35.7 % (36-47); Hemoglobin 11.90 g/dL (11.27-16.99); Mean Corpuscular HGB Conc 33.3 g/dL (30-55); Mean Corpuscular Hemoglobin 29.0 pg (27-33); Mean Corpuscular Volume 87.1 fl (85-98); Nucleated Red Blood Cells % 0 %; Platelet Count 94 10^3/cmm (157-399); Red Blood Count 4.10 10^6/uL (3.85-5.65); White Blood Count 5.21 10^3/uL (3.29-11.43)
[2025-05-27] MEDS: cefepime 1,000 mg SDV 1000 MG IVP (20:32)
[2025-05-27 20:47] LABS: Troponin(5th) Baseline 20 ng/L (0-10)
[2025-05-27 20:48] LABS: Lactic Sepsis W/Reflex 3.0 mmol/L (0.5-2.2)
--- NOTE | 2025-05-27 20:49 | ECG_ITS ---
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
[2025-05-27 20:53] LABS: Alanine Aminotransferase 12 U/L (0-33); Albumin Level 3.4 g/dL (3.5-5.2); Alkaline Phosphatase 75 U/L (35-105); Aspartate Amino Transferase 16 U/L (0-32); Blood Urea Nitrogen 18 mg/dL (8-23); Calcium 8.7 mg/dL (8.5-10.5); Carbon Dioxide 26 mmol/L (22-29); Chloride 92 mmol/L (98-107); Creatinine Clr Calc Pharmacy 38.7497; Globulin 1.9 g/dL (1.3-4.6); Glucose 129 mg/dL (65-115); Osmolality Calculated 278 mOsm/kg (285-295); Sodium 132 mmol/L (136-145); Total Protein 5.3 g/dL (6.6-8.7)
[2025-05-27 20:57] LABS: Anion Gap 17.1 (5-19); Potassium 3.1 mmol/L (3.5-5.1)
--- NOTE | 2025-05-27 21:07 | W.ED.GENADLT ---
HPI - General Adult General: Chief complaint: General Medical Stated complaint: Low BP Time Seen by Provider: 05/27/25 19:32 History of Present Illness: Patient is a 69-year-old male who presents with complaints of extreme fatigue and weakness that began today at approximately 01:30. He reports that he was sitting in a chair when he suddenly became very tired and fell asleep. Since then, he has been progressively feeling weaker and more fatigued. The patient received chemotherapy treatment for multiple myeloma earlier today, though he denies any previous adverse reactions to his treatments, stating this was his third or fourth session since being diagnosed in January 2025. The patient reports a headache for the past couple of days and numbness on the right side of his face that has been present for approximately 10 weeks. He wonders if these symptoms might be related to his current dizziness. He denies chest pain, nausea, vomiting, diarrhea, or urinary symptoms. He reports a history of pulmonary emboli diagnosed in January 2025, for which he takes Eliquis. He also reports a current sinus infection for which he has been on antibiotics for about 10 days. He has not had a bowel movement in 2-3 days and mentions taking anti-diarrheal medication. The patient denies fever or shortness of breath. He does not normally require supplemental oxygen. Related Data Home Medications ?Medication ?Instructions ?Recorded ?Confirmed apixaban 5 mg tablet (Eliquis) 5 mg PO BID 02/24/25 05/20/25 escitalopram oxalate 10 mg tablet 10 mg PO DAILY 04/23/25 05/20/25 trazodone 150 mg tablet 150 mg PO BEDTIME 04/23/25 05/20/25 ivermectin 3 mg tablet 3 mg PO DAILY PRN 04/28/25 05/20/25 lisinopril 5 mg tablet 20 mg PO DAILY 05/17/25 05/20/25 diphenhydramine HCl 25 mg capsule 25 mg PO TID PRN 05/20/25 05/20/25 (Benadryl) loratadine 10 mg tablet (Claritin) 10 mg PO DAILY 05/20/25 05/20/25 melatonin 10 mg capsule 10 mg PO DAILY 05/20/25 05/20/25 Previous Rx's ?Medication ?Instructions ?Recorded oxycodone-acetaminophen 10 mg-325 1 tab PO Q8H PRN pain #20 tabs 05/19/25 mg tablet (Percocet) fluconazole 100 mg tablet 100 mg PO DAILY fungal infection 05/04/25 prevention #90 tabs ondansetron HCl 4 mg tablet 4 mg PO Q6H PRN nausea and 05/04/25 vomiting #30 tabs prochlorperazine maleate 10 mg 10 mg PO Q4H PRN mild nausea #30 05/04/25 tablet (Compazine) tabs sulfamethoxazole 800 1 tab PO MOWEFR #24 tabs 05/04/25 mg-trimethoprim 160 mg tablet (Bactrim DS) valacyclovir 500 mg tablet 500 mg PO BID #60 tabs 05/04/25 dexamethasone 20 mg tablet 20 mg PO .COMPLEX #30 tabs 05/07/25 cefuroxime axetil 500 mg tablet 500 mg PO Q12H 10 days #20 tabs 05/21/25 lenalidomide 25 mg capsule 25 mg PO DAILY 21 days #14 caps 05/25/25 potassium chloride 20 mEq 20 meq PO DAILY #30 tabs 05/27/25 tablet,extended release(part/cryst) (Klor-Con M) Allergies Allergy/AdvReac Type Severity Reaction Status Date / Time No Known Drug Allergies Allergy Mild Unknown Verified 05/20/25 12:08 [facility] PFSH: Social History Smoking and tobacco/nicotine status: never used tobacco/nicotine Physical Exam Const: COMMON NORMALS: no acute distress, average body habitus, alert and well nourished GENERAL APPEARANCE: cooperative ORIENTATION/CONSCIOUSNESS: Yes awake HENMT: COMMON NORMALS: normocephalic and atraumatic HEAD & SCALP: normocephalic and atraumatic Eye: COMMON NORMALS: conjunctivae normal CONJUNCTIVA: Yes conjunctivae normal Neck/C-Spine: GENERAL: Yes normal visual inspection Resp: COMMON NORMALS: normal respiratory effort, No retractions and No use of accessory muscles Cardio: COMMON NORMALS: regular rhythm and Peripheral pulses 2+ throughout RHYTHM: regular rhythm PERIPHERAL PULSES: Peripheral pulses 2+ throughout GI: COMMON NORMALS: Soft to palpation and non-tender PALPATION: Yes Soft to palpation Extremity: COMMON NORMALS: full ROM and no pedal edema Neuro: COMMON NORMALS: no focal motor deficits SENSORIUM/ORIENTATION: Yes alert Skin: COMMON NORMALS: no rashes or lesions noted GENERAL SKIN EXAM: no rashes or lesions noted Course Vital Signs: Vital signs: Vital Signs Temperature 98.0 F 05/27/25 17:30 Pulse Rate 78 05/27/25 19:51 Respiratory Rate 16 05/27/25 19:51 Blood Pressure 80/56 05/27/25 19:51 Pulse Oximetry 95 05/27/25 19:51 Oxygen Delivery Me thod Nasal Cannula 05/27/25 19:51 Oxygen Flow Rate 2 05/27/25 19:51 MDM - General Adult Medical Decision Making ROS: Constitutional: Positive for fatigue and weakness. Negative for fever. HEENT: Positive for headache and right-sided facial numbness. Positive for sinus infection. Cardiovascular: Negative for chest pain. Respiratory: Negative for shortness of breath. Gastrointestinal: Negative for nausea, vomiting, abdominal pain. Reports constipation with no bowel movement for 2-3 days. Genitourinary: Negative for urinary symptoms. Neurological: Positive for dizziness and right facial numbness. Hematologic: History of multiple myeloma on active treatment. MEDICATIONS AND ALLERGIES: Medications: - Eliquis (for pulmonary emboli) - Chemotherapy for multiple myeloma (specific regimen not specified) - Antibiotics for sinus infection (specific antibiotic not specified) - Anti-diarrheal medication (specific medication not specified) PAST HISTORICAL DATA: PMH: - Multiple myeloma, diagnosed January 2025, currently undergoing chemotherapy - Pulmonary emboli, diagnosed January 2025 - Recent sinus infection VITAL SIGNS: BP: 80/56 initially, later 112/61 HR: 72 RR: Not specified Temp: Not specified O2 Sat: Not specified INITIAL IMPRESSION AND PLAN: Given the history and presentation, the primary working diagnosis is hypotension and dehydration, possibly related to recent chemotherapy. Additional considerations include acute kidney injury, electrolyte abnormalities, sepsis, and potential neurological complications of multiple myeloma. Based on this initial impression I will order: 1. IV fluid resuscitation for hypotension 2. Complete blood count, comprehensive metabolic panel, lactic acid, and troponin 3. Urinalysis 4. EKG 5. Blood cultures 6. Antibiotics (vancomycin and cefepime) given concern for possible sepsis 7. Consultation with hospitalist for admission TEST INTERPRETATIONS: Laboratory Results: - WBC: 5.2 (normal) - Hemoglobin: 11.9 (slightly low) - Platelets: 94 (low) - Sodium: 132 (low) - Potassium: 3.1 (low) - Creatinine: 1.6 (elevated from baseline of 0.5 three days ago, consistent with acute kidney injury) - Lactic acid: 3 (elevated) - Troponin: 20 (indeterminate) - Urinalysis: Pending EKG: Sinus rhythm with rate of 73 beats per minute. No ischemic ST elevation or depression noted. FINAL IMPRESSION: Based on all the above, my clinical impression is most compatible with: 1. Acute kidney injury (creatinine 1.6, up from baseline 0.5) 2. Dehydration with hypotension 3. Hypokalemia (potassium 3.1) 4. Possible sepsis (lactic acid 3) 5. Multiple myeloma on active chemotherapy 6. History of pulmonary emboli on Eliquis The clinical picture is not currently suggestive of acute coronary syndrome, stroke, or adverse reaction to chemotherapy. Although other conditions were also considered, they were deemed unlikely based on the clinical information available. CLINICAL DISPOSITION: The patient's current condition is unstable in my estimation and the most appropriate and indicated disposition at this time is admission to the step-down unit. Rationale for admission: The patient requires admission due to acute kidney injury with creatinine elevation from 0.5 to 1.6 within three days, persistent hypotension requiring IV fluid resuscitation, hypokalemia requiring correction, elevated lactic acid concerning for possible sepsis, and the patient's underlying multiple myeloma with recent chemotherapy. The patient's overall clinical picture suggests a serious acute illness requiring close monitoring and intervention that cannot be safely managed in an outpatient setting. RISK STRATIFICATION AND CLINICAL DECISION RULES APPLIED: NEWS2 Score: While not explicitly calculated, the patient's hypotension (systolic BP 80) would contribute significantly to an elevated NEWS2 score, indicating the need for increased monitoring and intervention. qSOFA Score: The patient has hypotension (systolic BP <100 mmHg), which is one criterion. While respiratory rate was not documented and altered mental status was not clearly present, the hypotension alone warrants consideration of sepsis, especially with the elevated lactic acid. CASE SUMMARY: 69-year-old male with multiple myeloma diagnosed in January 2025, currently on chemotherapy (received treatment today), and history of pulmonary emboli on Eliquis, presented with acute onset of severe fatigue and weakness. Initial vital signs showed hypotension with BP 80/56. Laboratory evaluation revealed acute kidney injury with creatinine elevation from baseline 0.5 to 1.6 within three days, hypokalemia (K 3.1), thrombocytopenia (platelets 94), and elevated lactic acid of 3, raising concern for sepsis. The patient also has a sinus infection for which he has been on antibiotics for 10 days. The patient was treated with IV fluids and broad-spectrum antibiotics (vancomycin and cefepime). After discussion with the hospitalist, the decision was made to admit the patient to the step-down unit for management of acute kidney injury, dehydration, hypotension, hypokalemia, and to rule out sepsis. The patient's oncologist, Dr. Arriaga, was notified of the admission. SEPSIS COMPLIANCE: I have performed the sepsis fluid reassessment at 2025-05-27 20:45:28. Sepsis: SIRS criteria met, concern for infection with recent chemotherapy and sinus infection, lactic acid 3. Antibiotics (vancomycin and cefepime) administered at 2025-05-27 20:50:28. IV fluid bolus given at 2025-05-27 20:40:28. Reperfusion assessment at 2025-05-27 21:00:28: Blood pressure improved to 112/61 from initial 80/56. CMS Sepsis Bundle compliant. Lab Data I reviewed the patient's lab results. 05/27/25 20:15 05/27/25 20:15 Radiology Impressions Chest X-Ray 05/27/25 18:49 IMPRESSION: Hazy opacities in the right lung base. Differential includes infection versus overlying soft tissue. Lateral radiograph may be helpful in differentiating if clinically indicated. Laboratory Results WBC 5.21 10^3/uL (3.29-11.43) 05/27/25 20:15 RBC 4.10 10^6/uL (3.85-5.65) 05/27/25 20:15 Hgb 11.90 g/dL (11.27-16.99) 05/27/25 20:15 Hct 35.7 % (36-47) L 05/27/25 20:15 MCV 87.1 fl (85-98) 05/27/25 20:15 MCH 29.0 pg (27-33) 05/27/25 20:15 MCHC 33.3 g/dL (30-55) 05/27/25 20:15 RDW 13.2 % (12.1-15.1) 05/27/25 20:15 Plt Count 94 10^3/cmm (157-399) L 05/27/25 20:15 MPV 12.8 fL (7.4-10.4) H 05/27/25 20:15 Neut % (Auto) 83.5 % 05/27/25 20:15 Lymph % (Auto) 5.6 % 05/27/25 20:15 Swift % (Auto) 7.3 % 05/27/25 20:15 Eos % (Auto) 1.9 % 05/27/25 20:15 Baso % (Auto) 0.4 % 05/27/25 20:15 Neut # (Auto) 4.35 10^3/uL (1.8-7.7) 05/27/25 20:15 Lymph # (Auto) 0.3 10^3/uL (0.8-4.8) L 05/27/25 20:15 Swift # (Auto) 0.4 10^3/uL (0.2-0.9) 05/27/25 20:15 Eos # (Auto) 0.1 10^3/uL (0.0-0.8) 05/27/25 20:15 Baso # (Auto) 0.0 10^3/uL (0.0-0.1) 05/27/25 20:15 Nucleated RBC % (auto) 0 % 05/27/25 20:15 Nucleated RBCs # 0.0 /100WBC 05/27/25 20:15 Sodium 132 mmol/L (136-145) L 05/27/25 20:15 Potassium 3.1 mmol/L (3.5-5.1) L 05/27/25 20:15 Chloride 92 mmol/L (98-107) L 05/27/25 20:15 Carbon Dioxide 26 mmol/L (22-29) 05/27/25 20:15 Anion Gap 17.1 (5-19) 05/27/25 20:15 BUN 18 mg/dL (8-23) 05/27/25 20:15 Creatinine 1.6 mg/dL (0.5-0.9) H 05/27/25 20:15 GFR Calculation Not Reportable 05/27/25 20:15 Glucose 129 mg/dL (65-115) H 05/27/25 20:15 Calculated Osmolality 278 mOsm/kg (285-295) L 05/27/25 20:15 Lactic Acid 3.0 mmol/L (0.5-2.2) H 05/27/25 20:15 Calcium 8.7 mg/dL (8.5-10.5) 05/27/25 20:15 Total Bilirubin 0.3 mg/dL (0.15-1.2) 05/27/25 20:15 AST 16 U/L (0-32) 05/27/25 20:15 ALT 12 U/L (0-33) 05/27/25 20:15 Alkaline Phosphatase 75 U/L (35-105) 05/27/25 20:15 Troponin T Baseline 20 ng/L (0-10) H 05/27/25 20:15 Total Protein 5.3 g/dL (6.6-8.7) L 05/27/25 20:15 Albumin 3.4 g/dL (3.5-5.2) L 05/27/25 20:15 Globulin 1.9 g/dL (1.3-4.6) 05/27/25 20:15 All radiology interpretation(s) finalized by discharge Discharge Plan Discharge Patient Disposition: Admitted As Inpatient Clinical Impression: Multiple myeloma, Acute renal failure, Acute dehydration, Acute hypotension, Acute hypokalemia Condition: Fair Coding Level of Care Code ED Supervisor Intermediates for Yeison Xie
[2025-05-27 22:11] LABS: Reflex Lactate Order REFLEX LACTIC ORDERD
[2025-05-27 22:30] LABS: Troponin 5 2HR 17.01 ng/L (0-10)
[2025-05-27 22:39] LABS: Troponin 5 2HR Delta -2.99 ABS# (0-10)
--- NOTE | 2025-05-27 23:46 | PM.HP ---
Providers/Chief Complaint Admitting Physician: Kari Alva MD Primary Care Provider: Ryne Madison MD Chief Complaint: Low BP Chem 05/27/25 Dizzy History of Present Illness Mabel Carr is a 69 year old female with medical history significant for multiple myeloma diagnosed in January 2025. Patient at that time also had PE likely secondary to underlining malignancy. Patient is on Eliquis for this. Patient does have multiple myeloma with mets to the right humerus femoral region. Patient is a patient of Dr. Arriaga oncologist. She had always been okay with blood pressure in the 130s systolic. Her is at the bedside and given the history have the take the blood pressure every morning and he has stayed consistently in the 130s over 70s but today was different. When they took the blood pressure it was in the 80s systolic and that was different. Plus patient was also complaining of weakness and had not been doing very well today. Patient had had headaches 2 weeks ago where they had to get some CT scan of the head and it showed that patient had acute sinusitis. She was given some oral antibiotics at the time. Today is day complaints of weakness. Patient had had history of high blood pressure and this had been managed by 20 mg of lisinopril with no issues. Patient denies any febrile illness but just weakness. She is seem to be dehydrated creatinine elevated more so than the baseline. I have seen and evaluated patient in the emergency room. I feel patient's hypotension is likely secondary to underlining infection. I have initiated gentle hydration of normal saline to optimize patient creatinine and hydrate the patient. Patient has been pancultured from blood today and I am covering patient at this time with Zosyn to treat any associated gram-negative anaerobic's and also some gram-positive microbes. I am adding doxycycline for gram-positive can also be for MRSA staph's. Because of patient hypotension patient is being admitted to ICU for care. Review of Systems Narrative: System review upon 10 organ reviewed was significant for weakness and dehydration. Medications/Allergies Home Medications ?Medication ?Instructions ?Recorded ?Confirmed ?Last Taken ?Type apixaban 5 mg tablet (Eliquis) 5 mg PO BID 02/24/25 05/20/25 04/23/25 History oxycodone-acetaminophen 10 mg-325 1 tab PO Q8H PRN pain #20 tabs 03/15/25 05/20/25 Unknown Rx mg tablet (Percocet) escitalopram oxalate 10 mg tablet 10 mg PO DAILY 04/23/25 05/20/25 04/23/25 History 10 trazodone 150 mg tablet 150 mg PO BEDTIME 04/23/25 05/20/25 04/22/25 History ivermectin 3 mg tablet 3 mg PO DAILY PRN 04/28/25 05/20/25 Unknown History fluconazole 100 mg tablet 100 mg PO DAILY fungal infection 05/04/25 05/20/25 Unknown Rx prevention #90 tabs ondansetron HCl 4 mg tablet 4 mg PO Q6H PRN nausea and 05/04/25 05/20/25 Unknown Rx vomiting #30 tabs prochlorperazine maleate 10 mg 10 mg PO Q4H PRN mild nausea #30 05/04/25 05/20/25 Unknown Rx tablet (Compazine) tabs sulfamethoxazole 800 1 tab PO MOWEFR #24 tabs 05/04/25 05/20/25 Unknown Rx mg-trimethoprim 160 mg tablet (Bactrim DS) valacyclovir 500 mg tablet 500 mg PO BID #60 tabs 05/04/25 05/20/25 Unknown Rx dexamethasone 20 mg tablet 20 mg PO .COMPLEX #30 tabs 05/07/25 05/20/25 Unknown Rx lisinopril 5 mg tablet 20 mg PO DAILY 05/17/25 05/20/25 Unknown History diphenhydramine HCl 25 mg capsule 25 mg PO TID PRN 05/20/25 05/20/25 Unknown History (Benadryl) loratadine 10 mg tablet (Claritin) 10 mg PO DAILY 05/20/25 05/20/25 Unknown History melatonin 10 mg capsule 10 mg PO DAILY 05/20/25 05/20/25 Unknown History cefuroxime axetil 500 mg tablet 500 mg PO Q12H 10 days #20 tabs 05/21/25 Unknown Rx lenalidomide 25 mg capsule 25 mg PO DAILY 21 days #14 caps 05/25/25 Unknown Rx potassium chloride 20 mEq 20 meq PO DAILY #30 tabs 05/27/25 Unknown Rx tablet,extended release(part/cryst) (Klor-Con M) Allergies Allergy/AdvReac Type Severity Reaction Status Date / Time No Known Drug Allergies Allergy Mild Unknown Verified 05/20/25 12:08 PFSH Acute PFSH: Social History Smoking and tobacco/nicotine status: never used tobacco/nicotine Vitals/I&O/Wt Last Vital Signs Temp 98.0 F 05/27/25 17:30 Pulse 73 05/27/25 23:19 Resp 20 H 05/27/25 23:19 BP 120/54 05/27/25 23:19 Pulse Ox 95 05/27/25 23:19 O2 Del Method Room Air 05/27/25 21:58 O2 Flow Rate 2 05/27/25 19:51 05/27/25 05/27/25 05/28/25 14:59 22:59 06:59 Intake Total 1300 / 1300 Balance 1300 / 1300 Weight last 48 hrs Weight 107 kg Weight 104.78 kg Physical Exam Narrative: Patient is very weak appearing wildly controlled blood cultures and other labs at my evaluation of the patient. at the bedside of friend and given information about the medical history and current history of presentation. Patient is also concurrent with the 's information of her. HEENT normocephalic/atraumatic neck neck is supple cardiovascular heart rate is regular lungs are pretty much clear abdomen is soft nontender nondistended unremarkable extremities are intact no edema has good pulses neurology has no focality lab studies lab studies reviewed and noted. Data 05/27/25 20:15 05/27/25 20:15 Micro: Microbiology 05/27/25 20:15 Blood Culture - Preliminary Blood SPECIMEN COLLECTED 05/27/25 20:18 Blood Culture - Preliminary Blood SPECIMEN COLLECTED A&P Assessment and plan 1. Weakness: Weakness is multifactorial in this patient that may be significant for malignant disease with mets with underlining infection - Treat sinusitis with IV antibiotics at this time - PT OT - Gentle hydration for a dehydration and acute renal failure from prerenal azotemia 2. Acute hypokalemia: Hypokalemia of 3.1 had been replaced with 40 mEq of K-Dur Follow repeat of chemistry Follow level of magnesium, if low replace 3. Acute hypotension: Patient noted to have acute hypotension today which is very new to the patient and to the at the bedside - Gentle hydration initiated with good response - Continue antibiotics to treat infection source 4. Acute dehydration: Gentle normal saline rehydration 5. Acute renal failure: Continue to optimize prerenal azotemia Follow-up with electrolytes and optimize accordingly 6. Multiple myeloma: Patient is with multiple myeloma with mets to the bone Patient is a patient of Dr. Arriaga for the oncology problems 7. Metastasis to bone: Pain management concerning any pain that is related to mets to the bone Continue to manage and keep patient pain-free 8. Pulmonary embolism: - Patient had pulmonary embolism for which she is on Eliquis - Eliquis initiated - Patient PE was secondary to underlining malignancy - Will continue to optimize all home medication when necessary Plan: GI and DVT prophylaxis in place PDMP PDMP Reviewed: Last Reviewed 05/28/25 00:08 by Kari Alva MD Attestations Medical Necessity Statement*: Patient with severe hypotension weakness and with comorbid condition of immunosuppression from multiple myeloma cancer this of an ICU admission and at least 2 midnights stay in the hospital for optimization of care. Coding Level of Care Code 07310 Diagnoses Weakness R53.1 Acute hypokalemia E87.6 Acute hypotension I95.9 Acute dehydration E86.0 Acute renal failure N17.9 Multiple myeloma C90.00 Metastasis to bone C79.51 Pulmonary embolism I26.99 Time Spent (min) 60
[2025-05-27] MEDS: morphine 4 mg/mL SDV 1 mL 2 MG IVP (23:57)
[2025-05-28] VITALS (48 sets, daily range): BP systolic 96–175; BP diastolic 42–105; PULSE 51–90; RESP 12–23; TEMP 36.4–36.7; O2SAT 90–100
[2025-05-28] MEDS: doxycycline 100 MG in sodium chloride 0.9% (plus) 100 ML IV (00:03)
[2025-05-28 00:43] LABS: Lactic Acid level (Lactate) 1.9 mmol/L (0.5-2.2)
--- NOTE | 2025-05-28 00:49 | ECG_ITS ---
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
[2025-05-28] MEDS: piperacillin-tazobactam 3.375 GM in sodium chloride 0.9% (plus) 50 ML IV ×4 (01:04→23:24)
[2025-05-28 01:16] LABS: Coronavirus 229E,HKU1,NL63,OC4 Not Detected (NOT DETECT); Parainfluenza Virus Type 1 Not Detected (NOT DETECT); Parainfluenza Virus Type 2 Not Detected (NOT DETECT); Parainfluenza Virus Type 3 Not Detected (NOT DETECT); Parainfluenza Virus Type 4 Not Detected (NOT DETECT)
[2025-05-28 01:31] LABS: SARS-COV-2 Detected (NOT DETECT)
[2025-05-28 03:12] LABS: Hematocrit 31.1 % (36-47); Hemoglobin 10.30 g/dL (11.27-16.99); Mean Corpuscular HGB Conc 33.1 g/dL (30-55); Mean Corpuscular Hemoglobin 29.3 pg (27-33); Mean Corpuscular Volume 88.6 fl (85-98); Nucleated Red Blood Cells % 0 %; Platelet Count 76 10^3/cmm (157-399); Red Blood Count 3.51 10^6/uL (3.85-5.65); White Blood Count 4.91 10^3/uL (3.29-11.43)
[2025-05-28 03:29] LABS: Troponin 5 6HR 15.47 ng/L (0-10)
[2025-05-28 03:31] LABS: Alanine Aminotransferase 10 U/L (0-33); Albumin Level 2.8 g/dL (3.5-5.2); Alkaline Phosphatase 62 U/L (35-105); Anion Gap 17.4 (5-19); Aspartate Amino Transferase 12 U/L (0-32); Blood Urea Nitrogen 19 mg/dL (8-23); Calcium 7.5 mg/dL (8.5-10.5); Carbon Dioxide 23 mmol/L (22-29); Chloride 97 mmol/L (98-107); Creatinine Clr Calc Pharmacy 34.8461; Globulin 1.6 g/dL (1.3-4.6); Glucose 85 mg/dL (65-115); Magnesium 2.2 mg/dL (1.7-2.3); Osmolality Calculated 280 mOsm/kg (285-295); Potassium 3.4 mmol/L (3.5-5.1); Sodium 134 mmol/L (136-145); Total Protein 4.4 g/dL (6.6-8.7); Troponin 5 6HR Delta -4.53 ng/L (0-12)
[2025-05-28 03:43] LABS: Slide Review Slide Review Perform
[2025-05-28 06:20] LABS: Glucose Urine UA Negative (Normal); Nitrate Urine Negative (Negative); Specific Gravity, Urine 1.019 (1.005-1.030)
[2025-05-28 06:49] LABS: UA Manual Slide Review YES; UA Slide Review UA Slide Review Perf
--- NOTE | 2025-05-28 10:50 | PC.SOCIAL ---
IMM Update pg 2 of IMM Updated and reviewed w/ patient. Copy provided and copy dated, initialed and placed in chart.
--- NOTE | 2025-05-28 11:31 | P.PN_ITS ---
Subjective 2 Subjective: Seen this morning Patient is taking her home Revlimid Hemoglobin 10.3 this morning, platelet count 76. Potassium 3.4, sodium 134 Creatinine 1.8 WBC count 11-20. present at bedside. Vitals/I&O/Wt Last Vital Signs Temp 98.0 F 05/28/25 04:00 Pulse 72 05/28/25 10:00 Resp 19 H 05/28/25 10:00 BP 134/79 05/28/25 06:00 Pulse Ox 92 05/28/25 10:00 O2 Del Method Room Air 05/28/25 06:00 O2 Flow Rate 2 05/27/25 19:51 05/27/25 05/28/25 05/28/25 22:59 06:59 14:59 Intake Total 1300 / 1300 1150 / 2450 400 / 400 Output Total 70 / 70 Balance 1300 / 1300 1080 / 2380 400 / 400 Weight last 48 hrs Weight 107 kg Weight 107 kg Weight 104.78 kg Physical Exam 2 Narrative: General: Alert oriented x3, patient seen sitting up in chair appearing comfortable at this time. HEENT: Normocephalic, atraumatic, EOMI, Respiratory: Clear to auscultation bilaterally no wheezing or rhonchi. Cardiovascular: Good bilateral air entry, no wheezes no rhonchi appreciated GI: Abdomen soft, nontender, bowel sounds + Extremities: 1+ edema bilateral lower extremities nonpitting. Data 05/28/25 02:35 05/28/25 02:35 Micro: Microbiology 05/27/25 20:15 Blood Culture - Preliminary Blood SPECIMEN COLLECTED 05/27/25 20:18 Blood Culture - Preliminary Blood SPECIMEN COLLECTED A&P Assessment and plan 1. Weakness: Weakness is multifactorial in this patient that may be significant for malignant disease with mets with underlining infection - Treat sinusitis with IV antibiotics at this time - PT OT - Gentle hydration for a dehydration and acute renal failure from prerenal azotemia 2. Acute hypokalemia: Hypokalemia of 3.1 had been replaced with 40 mEq of K-Dur Follow repeat of chemistry Follow level of magnesium, if low replace 3. Acute hypotension: Patient noted to have acute hypotension today which is very new to the patient and to the at the bedside - Gentle hydration initiated with good response - Continue antibiotics to treat infection source 4. Acute dehydration: Gentle normal saline rehydration 5. Acute renal failure: Continue to optimize prerenal azotemia Follow-up with electrolytes and optimize accordingly 6. Multiple myeloma: Patient is with multiple myeloma with mets to the bone Patient is a patient of Dr. Arriaga for the oncology problems 7. Metastasis to bone: Pain management concerning any pain that is related to mets to the bone Continue to manage and keep patient pain-free 8. Pulmonary embolism: - Patient had pulmonary embolism for which she is on Eliquis - Eliquis initiated - Patient PE was secondary to underlining malignancy - Will continue to optimize all home medication when necessary Plan: GI and DVT prophylaxis in place 05/28/2025 We will repeat labs this morning. We will reassess electrolytes and creatinine. She is status post 2 L of normal saline bolus and on sodium chloride 75 cc/h. ? Hemoglobin 10.3. Platelet count 76 at this time. On chemo. ? Continue Eliquis 5 twice daily and continue to monitor platelets. Patient is on Eliquis due to previous PE. ? Continue on Zosyn. Stop doxycycline and switch to vancomycin. ? We will continue on broad-spectrum antibiotics given immunocompromise status. ? Chest x-ray appears to be questionable pneumonia. ? Will check CT chest without contrast. ? Urine sample abnormal. Squamous epithelial cells 21-50, WBC 11-20, 1+ bacteria, hyaline cast 25-40. 1+ leukocyte Estrace. ? Patient is antibiotic which will cover for potential UTI. ? Continue on pain management. ? We will call you discussed with oncology. May transfer to medical surgical floor. PDMP PDMP Reviewed: Not Reviewed Attestations 2 Medical Necessity Statement*: Possible pneumonia, possible UTI, dehydration. Thrombocytopenia Diagnoses Weakness R53.1 Acute hypokalemia E87.6 Acute hypotension I95.9 Acute dehydration E86.0 Acute renal failure N17.9 Multiple myeloma C90.00 Metastasis to bone C79.51 Pulmonary embolism I26.99
--- NOTE | 2025-05-28 11:40 | CTR_ITS ---
PROCEDURE INFORMATION: Exam: CT Chest Without Contrast; Diagnostic Exam date and time: 05/28/2025 4:41 PM Age: 69 years old Clinical indication: Dyspnea; Additional info: R/O pna TECHNIQUE: Imaging protocol: Diagnostic computed tomography of the chest without contrast. Radiation optimization: All CT scans at this facility use at least one of these dose optimization techniques: automated exposure control; mA and/or kV adjustment per patient size (includes targeted exams where dose is matched to clinical indication); or iterative reconstruction. COMPARISON: PT PET WB melanoma INITIAL [id number] 03/19/2025 8:59 AM RADIATION DOSE METRICS: Total DLP (mGy-cm): 629.21 FINDINGS: Lungs: Multifocal nodular and ground-glass opacities involving all lobes. Pleural spaces: Unremarkable. No pneumothorax. No pleural effusion. Heart: Unremarkable. No cardiomegaly. No pericardial effusion. Lymph nodes: Unremarkable. No enlarged lymph nodes. Vasculature: Unremarkable. No aortic aneurysm. Gallbladder and biliary ducts: Cholelithiasis without CT findings of acute cholecystitis. Bones/joints: Unchanged appearance of lucent lesion in the left acromion. No acute fracture. Soft tissues: Unremarkable. CT/CT chest wo con [id number] IMPRESSION: Multifocal pneumonia. Recommend repeat imaging following treatment to ensure resolution.
--- NOTE | 2025-05-28 12:50 | PHA.VACGOAL ---
Vancomycin Goal - Goal Vancomycin Goal:: 15-20 mg/L Vancomycin Indication:: Pneumonia - Therapy Current therapy:: Pip/Tazo Day of therpy:: Day []of [] . Actual body weight (kg): 235 lb 14.314 oz - Data Labs: WBC 4.91 10^3/uL (3.29-11.43) 05/28/25 02:35 RBC 3.51 10^6/uL (3.85-5.65) L 05/28/25 02:35 Hgb 10.30 g/dL (11.27-16.99) L 05/28/25 02:35 Hct 31.1 % (36-47) L 05/28/25 02:35 MCV 88.6 fl (85-98) 05/28/25 02:35 MCH 29.3 pg (27-33) 05/28/25 02:35 MCHC 33.1 g/dL (30-55) 05/28/25 02:35 RDW 13.6 % (12.1-15.1) 05/28/25 02:35 Sodium 134 mmol/L (136-145) L 05/28/25 02:35 Potassium 3.4 mmol/L (3.5-5.1) L 05/28/25 02:35 Chloride 97 mmol/L (98-107) L 05/28/25 02:35 Carbon Dioxide 23 mmol/L (22-29) 05/28/25 02:35 Anion Gap 17.4 (5-19) 05/28/25 02:35 BUN 19 mg/dL (8-23) 05/28/25 02:35 Creatinine 1.8 mg/dL (0.5-0.9) H 05/28/25 02:35 GFR Calculation Not Reportable 05/28/25 02:35 Treatment plan:: new consult Regimen:: LOADING DOSE OF 1500MG GIVEN. STARTING MAINTENANCE DOSE OF 1500 MG Q24H PER PROTOCOL. WILL OBTAIN TROUGH BEFORE 4TH DOSE.
[2025-05-29] VITALS (47 sets, daily range): BP systolic 125–187; BP diastolic 72–109; PULSE 46–67; RESP 10–22; TEMP 35.6–36.9; O2SAT 92–98
--- NOTE | 2025-05-29 02:16 | ECG_ITS ---
[facility] Date: 2025-05-29 Pat Name: Mabel Carr Department: Room: 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
--- NOTE | 2025-05-29 02:35 | PC.NURSE ---
Rhythm change noted on monitor, pt heart rate sustaining in 40s. Pt asymptomatic. EKG performed, reported sinus bradycardia. Dr. Alva made aware. No new orders at this time.
[2025-05-29 03:31] LABS: Hematocrit 33.1 % (36-47); Hemoglobin 10.80 g/dL (11.27-16.99); Mean Corpuscular HGB Conc 32.6 g/dL (30-55); Mean Corpuscular Hemoglobin 29.5 pg (27-33); Mean Corpuscular Volume 90.4 fl (85-98); Nucleated Red Blood Cells % 0 %; Platelet Count 52 10^3/cmm (157-399); Red Blood Count 3.66 10^6/uL (3.85-5.65); White Blood Count 2.25 10^3/uL (3.29-11.43)
--- NOTE | 2025-05-29 03:54 | PC.NURSE ---
Dr. Alva notified of consistently elevated blood pressures with systolics in the 170s-180s. Current bp 183/85. New order for 25 mg hydralazine PO ONCE.
[2025-05-29 03:57] LABS: Alanine Aminotransferase 14 U/L (0-33); Albumin Level 2.7 g/dL (3.5-5.2); Alkaline Phosphatase 68 U/L (35-105); Anion Gap 15.7 (5-19); Aspartate Amino Transferase 15 U/L (0-32); Blood Urea Nitrogen 19 mg/dL (8-23); Calcium 8.0 mg/dL (8.5-10.5); Carbon Dioxide 21 mmol/L (22-29); Chloride 100 mmol/L (98-107); Creatinine Clr Calc Pharmacy 78.4036; Globulin 2.6 g/dL (1.3-4.6); Glucose 175 mg/dL (65-115); Magnesium 2.3 mg/dL (1.7-2.3); Osmolality Calculated 283 mOsm/kg (285-295); Potassium 3.7 mmol/L (3.5-5.1); Sodium 133 mmol/L (136-145); Total Protein 5.3 g/dL (6.6-8.7)
[2025-05-29] MEDS: piperacillin-tazobactam 3.375 GM in sodium chloride 0.9% (plus) 50 ML IV ×3 (06:52→23:20)
[2025-05-29] MEDS: sennosides-docusate Tablet 1 TAB PO ×2 (11:25→17:40)
[2025-05-29] MEDS: polyethylene glycol 3350 Pkt 17 gm PO (11:30)
--- NOTE | 2025-05-29 17:08 | P.PN_ITS ---
Subjective 2 Subjective: Seen this morning CT chest shows multifocal pneumonia Platelets 52,000. No evidence of acute bleed at this time. Patient sitting up in chair with family member at bedside. Vitals/I&O/Wt Last Vital Signs Temp 97.2 F L 05/29/25 13:30 Pulse 48 L 05/29/25 14:00 Resp 13 05/29/25 14:00 BP 168/77 05/29/25 14:00 Pulse Ox 94 05/29/25 14:00 O2 Del Method Room Air 05/29/25 13:30 O2 Flow Rate 2 05/27/25 19:51 05/29/25 05/29/25 05/29/25 06:59 14:59 22:59 Intake Total 600 / 2940 1850 / 1850 Output Total 400 / 400 Balance 600 / 2940 1450 / 1450 Weight last 48 hrs Weight 106.5 kg Weight 107 kg Weight 107 kg Weight 104.78 kg Physical Exam 2 Narrative: General: Alert oriented x3, patient seen sitting up in chair appearing comfortable at this time. HEENT: Normocephalic, atraumatic, EOMI, Respiratory: Clear to auscultation bilaterally no wheezing or rhonchi. Cardiovascular: Good bilateral air entry, no wheezes no rhonchi appreciated GI: Abdomen soft, nontender, bowel sounds + Extremities: No edema bilateral lower extremities. Data 05/29/25 03:13 05/29/25 03:13 Micro: Microbiology 05/27/25 20:15 Blood Culture - Preliminary Blood NEGATIVE TO DATE 05/27/25 20:18 Blood Culture - Preliminary Blood NEGATIVE TO DATE A&P Assessment and plan 1. Weakness: Weakness is multifactorial in this patient that may be significant for malignant disease with mets with underlining infection - Treat sinusitis with IV antibiotics at this time - PT OT - Gentle hydration for a dehydration and acute renal failure from prerenal azotemia 2. Acute hypokalemia: Hypokalemia of 3.1 had been replaced with 40 mEq of K-Dur Follow repeat of chemistry Follow level of magnesium, if low replace 3. Acute hypotension: Patient noted to have acute hypotension today which is very new to the patient and to the at the bedside - Gentle hydration initiated with good response - Continue antibiotics to treat infection source 4. Acute dehydration: Gentle normal saline rehydration 5. Acute renal failure: Continue to optimize prerenal azotemia Follow-up with electrolytes and optimize accordingly 6. Multiple myeloma: Patient is with multiple myeloma with mets to the bone Patient is a patient of Dr. Arriaga for the oncology problems 7. Metastasis to bone: Pain management concerning any pain that is related to mets to the bone Continue to manage and keep patient pain-free 8. Pulmonary embolism: - Patient had pulmonary embolism for which she is on Eliquis - Eliquis initiated - Patient PE was secondary to underlining malignancy - Will continue to optimize all home medication when necessary Plan: GI and DVT prophylaxis in place 05/28/2025 We will repeat labs this morning. We will reassess electrolytes and creatinine. She is status post 2 L of normal saline bolus and on sodium chloride 75 cc/h. ? Hemoglobin 10.3. Platelet count 76 at this time. On chemo. ? Continue Eliquis 5 twice daily and continue to monitor platelets. Patient is on Eliquis due to previous PE. ? Continue on Zosyn. Stop doxycycline and switch to vancomycin. ? We will continue on broad-spectrum antibiotics given immunocompromise status. ? Chest x-ray appears to be questionable pneumonia. ? Will check CT chest without contrast. ? Urine sample abnormal. Squamous epithelial cells 21-50, WBC 11-20, 1+ bacteria, hyaline cast 25-40. 1+ leukocyte Estrace. ? Patient is antibiotic which will cover for potential UTI. ? Continue on pain management. ? We will call you discussed with oncology. May transfer to medical surgical floor. 05/29/2025 Stop IV fluids. Continue vanc Zosyn I will hold Eliquis today. Platelets down to 52,000. Discussed with patient. CT chest showed multifocal pneumonia Subjectively she feels slightly better. Await cultures. Discussed with oncology over the phone yesterday. They recommend stopping all chemo related medications at this time. He also recommended to stop any dexamethasone. Patient to follow-up with oncology after discharge. I will continue valacyclovir for prophylaxis purposes. Continue trazodone at night. May move to MedSurg floor. Check CBC CMP in AM. PDMP PDMP Reviewed: Not Reviewed Attestations 2 Medical Necessity Statement*: Chemo patient multifocal pneumonia. Diagnoses Weakness R53.1 Acute hypokalemia E87.6 Acute hypotension I95.9 Acute dehydration E86.0 Acute renal failure N17.9 Multiple myeloma C90.00 Metastasis to bone C79.51 Pulmonary embolism I26.99
--- NOTE | 2025-05-29 19:14 | PC.NURSE ---
SHift SUmmary: uneventful shift. patient up to a chair for most of the day, walks to the bathroom. Started on home BP medication (lisinopril).... Amlodipine and hydralazine also added. Remains on room air, lung sounds clear but diminished. Started on miralax and senna/colace for constipation. no BOwel movememnt for 6-7 days. Bowels sounds range from hypoactive to active. Belly is still soft, patient does not report any pain, but states she has a feeling of fullness and poor appetite.
[2025-05-29] MEDS: morphine 4 mg/mL SDV 1 mL 2 MG IVP (23:25)
[2025-05-30] VITALS (32 sets, daily range): BP systolic 120–165; BP diastolic 66–82; PULSE 51–68; RESP 12–24; TEMP 36.4–37.1; O2SAT 91–98
[2025-05-30 04:05] LABS: Hematocrit 35.3 % (36-47); Hemoglobin 11.20 g/dL (11.27-16.99); Mean Corpuscular HGB Conc 31.7 g/dL (30-55); Mean Corpuscular Hemoglobin 30.1 pg (27-33); Mean Corpuscular Volume 94.9 fl (85-98); Nucleated Red Blood Cells % 0 %; Platelet Count 46 10^3/cmm (157-399); Red Blood Count 3.72 10^6/uL (3.85-5.65); White Blood Count 1.66 10^3/uL (3.29-11.43)
[2025-05-30 04:21] LABS: Alanine Aminotransferase 15 U/L (0-33); Albumin Level 3.1 g/dL (3.5-5.2); Alkaline Phosphatase 62 U/L (35-105); Aspartate Amino Transferase 16 U/L (0-32); Blood Urea Nitrogen 14 mg/dL (8-23); Calcium 7.7 mg/dL (8.5-10.5); Carbon Dioxide 21 mmol/L (22-29); Chloride 100 mmol/L (98-107); Creatinine Clr Calc Pharmacy 78.2000; Globulin 1.7 g/dL (1.3-4.6); Glucose 97 mg/dL (65-115); Magnesium 2.4 mg/dL (1.7-2.3); Osmolality Calculated 276 mOsm/kg (285-295); Sodium 133 mmol/L (136-145); Total Protein 4.8 g/dL (6.6-8.7)
[2025-05-30 04:22] LABS: Anion Gap 15.8 (5-19); Potassium 3.8 mmol/L (3.5-5.1)
[2025-05-30 04:47] LABS: Slide Review Slide Review Perform
[2025-05-30] MEDS: piperacillin-tazobactam 3.375 GM in sodium chloride 0.9% (plus) 50 ML IV ×2 (08:34→15:56)
[2025-05-30] MEDS: sennosides-docusate Tablet 1 TAB PO ×2 (08:36→18:02)
[2025-05-30] MEDS: polyethylene glycol 3350 Pkt 17 gm PO (08:38)
--- NOTE | 2025-05-30 11:36 | CTR_ITS ---
PROCEDURE INFORMATION: Exam: CT Abdomen And Pelvis Without Contrast Exam date and time: 05/30/2025 11:56 AM Age: 69 years old Clinical indication: Abdominal pain TECHNIQUE: Imaging protocol: Computed tomography of the abdomen and pelvis without contrast. Radiation optimization: All CT scans at this facility use at least one of these dose optimization techniques: automated exposure control; mA and/or kV adjustment per patient size (includes targeted exams where dose is matched to clinical indication); or iterative reconstruction. COMPARISON: 1. PT PET WB melanoma INITIAL [id number] 03/19/2025 8:[address] chest wo con [id number] 05/28/2025 4:41 PM RADIATION DOSE METRICS: Total DLP (mGy-cm): 987.03 FINDINGS: Lungs: Patchy opacities of the visualized bilateral pulmonary lobes better evaluated on recent CT chest. Liver: Normal. No mass. Gallbladder and biliary ducts: Cholelithiasis. Pancreas: Pancreatic atrophy. Spleen: Splenic granulomas. Adrenal glands: Mild thickening of the adrenal glands. Kidneys and ureters: No hydronephrosis. Stomach and bowel: Surgical material of the rectum and perirectal soft tissues. No obstruction. No mucosal thickening. Appendix: No evidence of appendicitis. Intraperitoneal space: No free air. No significant fluid collection. Vasculature: No abdominal aortic aneurysm. Lymph nodes: Prominent paraesophageal lymph nodes, nonspecific. Urinary bladder: Unremarkable as visualized. Reproductive: Status post hysterectomy. Bones/joints: Degenerative change throughout the visualized thoracolumbar spine grade 1 anterolisthesis of L4 on L5 secondary to facet hypertrophy. No acute fracture. Soft tissues: Unremarkable. CT/CT abdomen pelvis wo con [id number] IMPRESSION: 1. No acute abdominopelvic findings. 2. Patchy opacities of the visualized bilateral pulmonary lobes better evaluated on recent CT chest.
--- NOTE | 2025-05-30 13:43 | P.PN_ITS ---
Subjective 2 Subjective: Neutrophil count 0.88, WBC 1.66, hemoglobin 9.2. Platelets 46,000 today. Patient subjectively feels better. She still feels constipated Patient status post MiraLAX, Doc senna She complains of mild abdominal pain. Vitals/I&O/Wt Last Vital Signs Temp 97.6 F 05/30/25 08:00 Pulse 54 L 05/30/25 12:00 Resp 16 05/30/25 12:00 BP 139/66 05/30/25 12:00 Pulse Ox 98 05/30/25 12:00 O2 Del Method Room Air 05/30/25 10:00 O2 Flow Rate 2 05/27/25 19:51 05/29/25 05/30/25 05/30/25 22:59 06:59 14:59 Intake Total 810 / 2660 290 / 2950 480 / 480 Output Total 300 / 700 400 / 1100 Balance 510 / 1960 -110 / 1850 480 / 480 Weight last 48 hrs Weight 105.233 kg Weight 106.5 kg Physical Exam 2 Narrative: General: Alert oriented x3, HEENT: Normocephalic, atraumatic, EOMI, Respiratory: Clear to auscultation bilaterally no wheezing or rhonchi. Cardiovascular: Good bilateral air entry, no wheezes no rhonchi appreciated GI: Abdomen soft, nontender, bowel sounds + Extremities: No edema bilateral lower extremities. Data 05/30/25 03:30 05/30/25 03:30 A&P Assessment and plan 1. Weakness: Weakness is multifactorial in this patient that may be significant for malignant disease with mets with underlining infection - Treat sinusitis with IV antibiotics at this time - PT OT - Gentle hydration for a dehydration and acute renal failure from prerenal azotemia 2. Acute hypokalemia: Hypokalemia of 3.1 had been replaced with 40 mEq of K-Dur Follow repeat of chemistry Follow level of magnesium, if low replace 3. Acute hypotension: Patient noted to have acute hypotension today which is very new to the patient and to the at the bedside - Gentle hydration initiated with good response - Continue antibiotics to treat infection source 4. Acute dehydration: Gentle normal saline rehydration 5. Acute renal failure: Continue to optimize prerenal azotemia Follow-up with electrolytes and optimize accordingly 6. Multiple myeloma: Patient is with multiple myeloma with mets to the bone Patient is a patient of Dr. Arriaga for the oncology problems 7. Metastasis to bone: Pain management concerning any pain that is related to mets to the bone Continue to manage and keep patient pain-free 8. Pulmonary embolism: - Patient had pulmonary embolism for which she is on Eliquis - Eliquis initiated - Patient PE was secondary to underlining malignancy - Will continue to optimize all home medication when necessary Plan: GI and DVT prophylaxis in place 05/28/2025 We will repeat labs this morning. We will reassess electrolytes and creatinine. She is status post 2 L of normal saline bolus and on sodium chloride 75 cc/h. ? Hemoglobin 10.3. Platelet count 76 at this time. On chemo. ? Continue Eliquis 5 twice daily and continue to monitor platelets. Patient is on Eliquis due to previous PE. ? Continue on Zosyn. Stop doxycycline and switch to vancomycin. ? We will continue on broad-spectrum antibiotics given immunocompromise status. ? Chest x-ray appears to be questionable pneumonia. ? Will check CT chest without contrast. ? Urine sample abnormal. Squamous epithelial cells 21-50, WBC 11-20, 1+ bacteria, hyaline cast 25-40. 1+ leukocyte Estrace. ? Patient is antibiotic which will cover for potential UTI. ? Continue on pain management. ? We will call you discussed with oncology. May transfer to medical surgical floor. 05/29/2025 Stop IV fluids. Continue vanc Zosyn I will hold Eliquis today. Platelets down to 52,000. Discussed with patient. CT chest showed multifocal pneumonia Subjectively she feels slightly better. Await cultures. Discussed with oncology over the phone yesterday. They recommend stopping all chemo related medications at this time. He also recommended to stop any dexamethasone. Patient to follow-up with oncology after discharge. I will continue valacyclovir for prophylaxis purposes. Continue trazodone at night. May move to MedSur floor. Check CBC CMP in AM. 05/30/2025 Patient has been hypertensive. Lisinopril 20 daily as home medication we will continue. Continue bladder pain 10 daily. (This was added this admission) Per oncology no dexamethasone to be given. Continue on Zosyn, vancomycin, valacyclovir for prophylaxis Continue fluconazole 100 daily Placed on lactulose 15 p.o. twice daily Check CT abdomen pelvis If she is not able to have a bowel movement in next 24 hours we may proceed with enema. May transfer to medical floor. Per oncology Neulasta or Neupogen not needed. Continue to monitor counts. Check CBC CMP in AM. PDMP PDMP Reviewed: Not Reviewed Attestations 2 Medical Necessity Statement*: Chemo patient multifocal pneumonia. Diagnoses Weakness R53.1 Acute hypokalemia E87.6 Acute hypotension I95.9 Acute dehydration E86.0 Acute renal failure N17.9 Multiple myeloma C90.00 Metastasis to bone C79.51 Pulmonary embolism I26.99
[2025-05-30] MEDS: morphine 4 mg/mL SDV 1 mL 2 MG IVP ×2 (14:56→22:46)
[2025-05-30] MEDS: lactulose oral liq 20 gm/30 mL UDC 15 GM PO (18:02)
[2025-05-31] VITALS (51 sets, daily range): BP systolic 104–165; BP diastolic 52–92; PULSE 51–65; RESP 9–21; TEMP 35.7–38.1; O2SAT 93–97
[2025-05-31] MEDS: oxyCODONE-APAP 10-325 mg Tablet 1 TAB PO ×2 (00:18→20:09)
[2025-05-31] MEDS: piperacillin-tazobactam 3.375 GM in sodium chloride 0.9% (plus) 50 ML IV ×4 (00:25→23:37)
[2025-05-31 06:22] LABS: Hematocrit 33.1 % (36-47); Hemoglobin 11.10 g/dL (11.27-16.99); Mean Corpuscular HGB Conc 33.5 g/dL (30-55); Mean Corpuscular Hemoglobin 29.1 pg (27-33); Mean Corpuscular Volume 86.6 fl (85-98); Nucleated Red Blood Cells % 0 %; Platelet Count 33 10^3/cmm (157-399); Red Blood Count 3.82 10^6/uL (3.85-5.65); White Blood Count 1.49 10^3/uL (3.29-11.43)
[2025-05-31 06:40] LABS: Alanine Aminotransferase 15 U/L (0-33); Albumin Level 3.0 g/dL (3.5-5.2); Alkaline Phosphatase 63 U/L (35-105); Anion Gap 12.9 (5-19); Aspartate Amino Transferase 14 U/L (0-32); Blood Urea Nitrogen 10 mg/dL (8-23); Calcium 8.4 mg/dL (8.5-10.5); Carbon Dioxide 24 mmol/L (22-29); Chloride 99 mmol/L (98-107); Creatinine Clr Calc Pharmacy 78.2000; Globulin 2.4 g/dL (1.3-4.6); Glucose 91 mg/dL (65-115); Magnesium 2.0 mg/dL (1.7-2.3); Osmolality Calculated 275 mOsm/kg (285-295); Sodium 133 mmol/L (136-145); Total Protein 5.4 g/dL (6.6-8.7)
[2025-05-31 07:08] LABS: Potassium 2.9 mmol/L (3.5-5.1)
[2025-05-31] MEDS: sennosides-docusate Tablet 1 TAB PO ×2 (08:29→17:42)
[2025-05-31] MEDS: polyethylene glycol 3350 Pkt 17 gm PO (08:30)
[2025-05-31] MEDS: lactulose oral liq 20 gm/30 mL UDC 15 GM PO ×2 (08:31→17:43)
[2025-05-31] MEDS: lidocaine 1% 5 ML in potassium chloride premix 100 ML 26.25 ML IV (11:23)
[2025-05-31 11:27] LABS: LAB Peripheral Smear Sent for Review
[2025-05-31 11:34] LABS: Estmated Average Glucose 123; Hemoglobin A1C 5.9 % (4.0-6.0)
[2025-05-31 11:49] LABS: Procalcitonin 0.04 ng/mL (0-0.5); Thyroid Stimulating Hormone 1.08 uIU/mL (0.27-4.20); Vitamin B12 522 pg/mL (232-1245)
[2025-05-31 12:00] LABS: Iron 62 ug/dL (37-145); Total Iron Binding Capacity 259 mcg/dl; Unsaturated Iron Binding 197 ug/dL (112-347)
[2025-05-31] MEDS: magnesium citrate Btl 296 mL PO (12:44)
[2025-05-31 13:33] LABS: MRSA PCR OZH (swab) NOT DETECTED (Not Detecte)
[2025-05-31 15:19] LABS: Anion Gap 13.3 (5-19); Blood Urea Nitrogen 11 mg/dL (8-23); Calcium 8.7 mg/dL (8.5-10.5); Carbon Dioxide 21 mmol/L (22-29); Chloride 101 mmol/L (98-107); Creatinine Clr Calc Pharmacy 78.2000; Glucose 99 mg/dL (65-115); Osmolality Calculated 271 mOsm/kg (285-295); Potassium 4.3 mmol/L (3.5-5.1); Sodium 131 mmol/L (136-145)
--- NOTE | 2025-05-31 16:58 | P.PN_ITS ---
Subjective 2 Subjective: Hospital course, labs appreciated. Seen with spouse at bedside. Patient sitting up in recliner. States when she stood up to walk she felt extremely weak. Denies any difficulty in breathing or pain. Vitals/I&O/Wt Last Vital Signs Temp 96.6 F L 05/31/25 14:30 Pulse 55 L 05/31/25 16:30 Resp 15 05/31/25 16:30 BP 145/79 05/31/25 16:30 Pulse Ox 96 05/31/25 16:30 O2 Del Method Room Air 05/31/25 16:30 O2 Flow Rate 2 05/31/25 09:30 05/31/25 05/31/25 05/31/25 06:59 14:59 22:59 Intake Total 350 / 1130 650 / 650 355 / 1005 Balance 350 / 1130 650 / 650 355 / 1005 Weight last 48 hrs Weight 106.5 kg Weight 105.233 kg Physical Exam 2 Narrative: General: Alert oriented x3, HEENT: Normocephalic, atraumatic, EOMI, Respiratory: Clear to auscultation bilaterally no wheezing or rhonchi. Cardiovascular: Good bilateral air entry, no wheezes no rhonchi appreciated GI: Abdomen soft, nontender, bowel sounds + Extremities: No edema bilateral lower extremities. Data 05/31/25 05:52 05/31/25 14:55 Micro: Microbiology 05/31/25 14:15 Legionella Urinary Antigen - Final Urine,Clean Catch A&P Assessment and plan 1. Weakness: Weakness is multifactorial in this patient that may be significant for malignant disease with mets along with ongoing COVID-19, hypokalemia. Physical therapy. Out of bed to chair. Patient fairly hydrated for now. Check TSH and B12 levels. 2. Acute hypokalemia: Replace with 80 mg of oral potassium and 40 mg of IV potassium. Repeat in afternoon. 3. Acute hypotension: Currently resolved. Goal blood pressure less than 140/90 mmHg with mean over 65. Continue with home dose of lisinopril. Continue with newly added amlodipine. Uptitrate as for goal blood pressure. 4. Acute dehydration: Resolved. 5. Acute renal failure: Most likely admission in setting of dehydration and hypotension. Resolved. 6. Multiple myeloma: Patient is with multiple myeloma with mets to the bone Patient is a patient of Dr. Arriaga for the oncology problems. Discussed with previous hospitalist and oncologist. Holding off on chemotherapy and dexamethasone for now. Will need to follow-up with oncology as an outpatient. 7. Metastasis to bone: Pain management concerning any pain that is related to mets to the bone Continue to manage and keep patient pain-free 8. Acute pulmonary embolism without acute cor pulmonale, unspecified pulmonary embolism type: - Patient had pulmonary embolism for which she is on Eliquis Eliquis currently on hold given thrombocytopenia. Patient denies any difficulty in breathing. 9. Thrombocytopenia: 10. Leukopenia: 11. COVID-19: Hypoxia secondary to COVID-19 pneumonia: Mild disease. Oxygen supplementation as needed to maintain saturation over 88%. Check ESR, CRP. If elevated will add dexamethasone. Currently on hold as per oncology request. Out of bed to chair. DuoNeb as needed. Plan: Thrombocytopenia leukopenia: Most likely in setting of outpatient use of lenalidomide for multiple myeloma along with current COVID-19. Continue to monitor. Currently platelet count of 33,000. Trending down. Will continue to monitor. Check haptoglobin level, LDH, tick panel, peripheral smear. Fall precautions. Continue with empiric IV vancomycin and Zosyn for now. Will check MRSA swab. If negative will discontinue vancomycin. Add doxycycline with concerns of possible tick infection. Will finish a 5-day course of Zosyn. Constipation: Currently on aggressive bowel regimen. CT on pelvis negative for acute obstruction. Add 1 bottle of mag citrate. If no bowel movements can plan for enema tomorrow. Full code Cardiac diet Protonix for PUD prophylaxis SCD for DVT prophylaxis. PDMP PDMP Reviewed: Not Reviewed Attestations 2 Medical Necessity Statement*: Requires further hospitalization for management of generalized weakness in setting of thrombocytopenia, leukopenia, COVID-19 are patient on chemotherapy for multiple myeloma Diagnoses Weakness R53.1 Acute hypokalemia E87.6 Acute hypotension I95.9 Acute dehydration E86.0 Acute renal failure N17.9 Multiple myeloma C90.00 Metastasis to bone C79.51 Acute pulmonary embolism without acute cor pulmonale, unspecified pulmonary embolism type I26.99 Pulmonary embolism type: unspecified Chronicity: acute Acute cor pulmonale presence: without acute cor pulmonale Thrombocytopenia D69.6 Leukopenia D72.819 COVID-19 U07.1
--- NOTE | 2025-05-31 18:31 | PC.NURSE ---
SHift summary: Up to a chair for most of the shift. Ambulated 3 times, about 150 feet each time. Has had 1 large liquid bowel movement.
[2025-05-31] MEDS: morphine 4 mg/mL SDV 1 mL 2 MG IVP (21:24)
[2025-06-01] VITALS (24 sets, daily range): BP systolic 109–148; BP diastolic 65–78; PULSE 53–82; RESP 11–21; TEMP 35.7–36.4; O2SAT 93–97
[2025-06-01] MEDS: morphine 4 mg/mL SDV 1 mL 2 MG IVP (01:24)
[2025-06-01 06:07] LABS: Magnesium 2.0 mg/dL (1.7-2.3)
[2025-06-01 06:11] LABS: Alanine Aminotransferase 15 U/L (0-33); Albumin Level 3.0 g/dL (3.5-5.2); Alkaline Phosphatase 62 U/L (35-105); Anion Gap 14.7 (5-19); Aspartate Amino Transferase 16 U/L (0-32); Blood Urea Nitrogen 9 mg/dL (8-23); Calcium 8.4 mg/dL (8.5-10.5); Carbon Dioxide 21 mmol/L (22-29); Chloride 104 mmol/L (98-107); Creatinine Clr Calc Pharmacy 77.5891; Globulin 2.2 g/dL (1.3-4.6); Glucose 83 mg/dL (65-115); Osmolality Calculated 280 mOsm/kg (285-295); Potassium 3.7 mmol/L (3.5-5.1); Sodium 136 mmol/L (136-145); Total Protein 5.2 g/dL (6.6-8.7)
[2025-06-01 06:23] LABS: Hematocrit 33.4 % (36-47); Hemoglobin 11.30 g/dL (11.27-16.99); Mean Corpuscular HGB Conc 33.8 g/dL (30-55); Mean Corpuscular Hemoglobin 29.7 pg (27-33); Mean Corpuscular Volume 87.9 fl (85-98); Nucleated Red Blood Cells % 0 %; Red Blood Count 3.80 10^6/uL (3.85-5.65); White Blood Count 1.69 10^3/uL (3.29-11.43)
[2025-06-01 06:48] LABS: Platelet Count 28 10^3/cmm (157-399)
[2025-06-01] MEDS: piperacillin-tazobactam 3.375 GM in sodium chloride 0.9% (plus) 50 ML IV (08:31)
[2025-06-01] MEDS: lactulose oral liq 20 gm/30 mL UDC 15 GM PO (08:32)
[2025-06-01] MEDS: sennosides-docusate Tablet 1 TAB PO (08:34)
[2025-06-01] MEDS: polyethylene glycol 3350 Pkt 17 gm PO (08:35)
--- NOTE | 2025-06-01 09:14 | P.DS_ITS ---
Discharge Providers Date of Admission: 05/27/25 21:05 Date of Discharge: June 01, 2025 Attending Provider at Admission: Kari Alva MD Attending Provider at Discharge: Kristofer Chen MD Primary Care Provider: Ryne Madison MD Diagnoses at Discharge Discharge Diagnosis 1. Weakness: 2. Acute hypokalemia: 3. Acute hypotension: 4. Acute dehydration: 5. Acute renal failure: 6. Multiple myeloma: 7. Metastasis to bone: 8. Acute pulmonary embolism without acute cor pulmonale, unspecified pulmonary embolism type: 9. Thrombocytopenia: 10. Leukopenia: 11. COVID-19: Reason for Visit Reason for Visit: Low BP Chem 05/27/25 Dizzy Brief History: Mabel Carr is a 69 year old female with medical history significant for multiple myeloma diagnosed in January 2025. Patient at that time also had PE likely secondary to underlining malignancy. Patient is on Eliquis for this. Patient does have multiple myeloma with mets to the right humerus femoral region. Patient is a patient of Dr. Arriaga oncologist. She had always been okay with blood pressure in the 130s systolic. Her is at the bedside and given the history have the take the blood pressure every morning and he has stayed consistently in the 130s over 70s but today was different. When they took the blood pressure it was in the 80s systolic and that was different. Plus patient was also complaining of weakness and had not been doing very well today. Patient had had headaches 2 weeks ago where they had to get some CT scan of the head and it showed that patient had acute sinusitis. She was given some oral antibiotics at the time. Today is day complaints of weakness. Patient had had history of high blood pressure and this had been managed by 20 mg of lisinopril with no issues. Patient denies any febrile illness but just weakness. She is seem to be dehydrated creatinine elevated more so than the baseline. I have seen and evaluated patient in the emergency room. I feel patient's hypotension is likely secondary to underlining infection. I have initiated gentle hydration of normal saline to optimize patient creatinine and hydrate the patient. Patient has been pancultured from blood today and I am covering patient at this time with Zosyn to treat any associated gram-negative anaerobic's and also some gram-positive microbes. I am adding doxycycline for gram-positive can also be for MRSA staph's. Because of patient hypotension patient is being admitted to ICU for care. Hospital Course Hospital Course She was admitted to the ICU for further evaluation and management of acute hypokalemia, acute hypotension due to dehydration concerns for possible sepsis, acute kidney injury in a patient with history of multiple myeloma on oral hemotherapy. She was started on IV hydration, broad-spectrum antibiotics. Her home dose of Eliquis was continued. She responded well to the treatment and hypotension resolved. Patient did not require any pressors during hospital. She did develop worsening leukopenia and thrombocytopenia. Care were discussed in detail with her outpatient oncology thrombocytopenia and leukopenia most likely in setting of home dose of lenalidomide. Medication of discontinued along with discontinuation of dexamethasone as per oncology recommendations. Her serology came back positive for COVID-19. COVID-19 was deemed to be mild given patient not requiring oxygen or having any pulmonary symptoms. Her blood cultures during hospitalization remained negative. Patient's symptoms of weakness continue to improve gradually. She worked well with physical therapy. She has been discharged in stable condition advised to follow-up with oncology next 1 to 3 days. Her home and chemotherapy medications have been withheld for now. She is also to hold off on not taking Eliquis till her platelet counts improved. She is to recheck her CBC in 3 days. Physical Exam Narrative: General: Alert oriented x3, HEENT: Normocephalic, atraumatic, EOMI, Respiratory: Clear to auscultation bilaterally no wheezing or rhonchi. Cardiovascular: Good bilateral air entry, no wheezes no rhonchi appreciated GI: Abdomen soft, nontender, bowel sounds + Extremities: No edema bilateral lower extremities. Discharge Data Studies Completed and Pending Completed Studies During Hospitalization Category Date Time Status CT abdomen pelvis wo con [id number] Stat Cat Scan 05/30/25 11:[address] chest wo con [id number] Stat Cat Scan 05/28/25 11:40 Completed XR chest 1V portable [id number] Stat Exams 05/27/25 18:49 Completed Pending at discharge Category Date Time Status Blood Culture Stat Lab 05/27/25 20:18 Results Folate Level AM LABS Lab 06/01/25 04:54 Received MAG [Magnesium] AM LABS Lab 06/02/25 04:00 Ordered MAG [Magnesium] AM LABS Lab 06/03/25 04:00 Ordered Sputum Culture and Gram Stain Stat Lab 05/28/25 11:42 Uncollected Tick Panel Stat Lab 05/31/25 05:52 Received Radiology Impressions Chest X-Ray 05/27/25 18:49 IMPRESSION: Hazy opacities in the right lung base. Differential includes infection versus overlying soft tissue. Lateral radiograph may be helpful in differentiating if clinically indicated. Chest CT 05/28/25 11:40 IMPRESSION: Multifocal pneumonia. Recommend repeat imaging following treatment to ensure resolution. Abdomen/Pelvis CT 05/30/25 11:36 IMPRESSION: 1. No acute abdominopelvic findings. 2. Patchy opacities of the visualized bilateral pulmonary lobes better evaluated on recent CT chest. Microbiology 05/31/25 14:15 Urine,Clean Catch Legionella Urinary Antigen - Final 05/27/25 20:15 Blood Blood Culture - Preliminary NEGATIVE TO DATE 05/27/25 20:18 Blood Blood Culture - Preliminary NEGATIVE TO DATE Laboratory Results WBC 1.69 10^3/uL (3.29-11.43) L 06/01/25 05:59 Corrected WBC Cancelled 06/01/25 04:54 RBC 3.80 10^6/uL (3.85-5.65) L 06/01/25 05:59 Hgb 11.30 g/dL (11.27-16.99) 06/01/25 05:59 Hct 33.4 % (36-47) L 06/01/25 05:59 MCV 87.9 fl (85-98) 06/01/25 05:59 MCH 29.7 pg (27-33) 06/01/25 05:59 MCHC 33.8 g/dL (30-55) 06/01/25 05:59 RDW 13.3 % (12.1-15.1) 06/01/25 05:59 Plt Count 28 10^3/cmm (157-399) L* 06/01/25 05:59 MPV 13.6 fL (7.4-10.4) H 06/01/25 05:59 Gran % Cancelled 06/01/25 04:54 Neut % (Auto) 48.5 % 06/01/25 05:59 Lymph % (Auto) 28.4 % 06/01/25 05:59 [place] % (Auto) 20.1 % 06/01/25 05:59 Eos % (Auto) 2.4 % 06/01/25 05:59 Baso % (Auto) 0.0 % 06/01/25 05:59 Neut # (Auto) 0.82 10^3/uL (1.8-7.7) L* 06/01/25 05:59 Lymph # (Auto) 0.5 10^3/uL (0.8-4.8) L 06/01/25 05:59 [place] # (Auto) 0.3 10^3/uL (0.2-0.9) 06/01/25 05:59 Eos # (Auto) 0.0 10^3/uL (0.0-0.8) 06/01/25 05:59 Baso # (Auto) 0.0 10^3/uL (0.0-0.1) 06/01/25 05:59 Absolute Gran (auto) Cancelled 06/01/25 04:54 Nucleated RBC % (auto) 0 % 06/01/25 05:59 Nucleated RBCs # 0.0 /100WBC 06/01/25 05:59 Peripher Smr Path Cons Sent for review 05/31/25 05:52 ESR 15 mm/hr (0-15) 05/31/25 05:52 Haptoglobin 161.0 mg/L (30-200) 05/31/25 05:52 Sodium 136 mmol/L (136-145) 06/01/25 04:54 Potassium 3.7 mmol/L (3.5-5.1) 06/01/25 04:54 Chloride 104 mmol/L (98-107) 06/01/25 04:54 Carbon Dioxide 21 mmol/L (22-29) L 06/01/25 04:54 Anion Gap 14.7 (5-19) 06/01/25 04:54 BUN 9 mg/dL (8-23) 06/01/25 04:54 Creatinine 0.4 mg/dL (0.5-0.9) L 06/01/25 04:54 GFR Calculation Not Reportable 06/01/25 04:54 Glucose 83 mg/dL (65-115) 06/01/25 04:54 POC Glucose 99 mg/dL (70-110) 05/31/25 11:49 Estimat Average Glucose 123 05/31/25 05:52 Hemoglobin A1c 5.9 % (4.0-6.0) 05/31/25 05:52 Calculated Osmolality 280 mOsm/kg (285-295) L 06/01/25 04:54 Lactic Acid 3.0 mmol/L (0.5-2.2) H 05/27/25 20:15 Lactic Acid (Sepsis) 1.9 mmol/L (0.5-2.2) 05/28/25 00:00 Calcium 8.4 mg/dL (8.5-10.5) L 06/01/25 04:54 Phosphorus 2.1 mg/dL (2.5-4.5) L 05/30/25 03:30 Magnesium 2.0 mg/dL (1.7-2.3) 06/01/25 04:54 Iron 62 ug/dL (37-145) 05/31/25 05:52 TIBC 259 mcg/dl 05/31/25 05:52 % Saturation 23.9 % (20-50) 05/31/25 05:52 Unsat Iron Binding 197 ug/dL (112-347) 05/31/25 05:52 Total Bilirubin 0.5 mg/dL (0.15-1.2) 06/01/25 04:54 AST 16 U/L (0-32) 06/01/25 04:54 ALT 15 U/L (0-33) 06/01/25 04:54 Alkaline Phosphatase 62 U/L (35-105) 06/01/25 04:54 Lactate Dehydrogenase 213 U/L (135-214) 05/31/25 05:52 Troponin T Baseline 20 ng/L (0-10) H 05/27/25 20:15 Troponin T 120 Minute 17.01 ng/L (0-10) H 05/27/25 22:01 Delta Troponin T -2.99 ABS# (0-10) L 05/27/25 22:01 Troponin T Hi Sens 6Hr 15.47 ng/L (0-10) H 05/28/25 02:35 Troponin T Hi Sens 6Hr Delta -4.53 ng/L (0-12) L 05/28/25 02:35 C-Reactive Protein 15.6 mg/L (0.0-4.9) H 05/31/25 05:52 Total Protein 5.2 g/dL (6.6-8.7) L 06/01/25 04:54 Albumin 3.0 g/dL (3.5-5.2) L 06/01/25 04:54 Globulin 2.2 g/dL (1.3-4.6) 06/01/25 04:54 Vitamin B12 522 pg/mL (232-1245) 05/31/25 05:52 Procalcitonin 0.04 ng/mL (0-0.5) 05/31/25 05:52 TSH 1.08 uIU/mL (0.27-4.20) 05/31/25 05:52 Urine Color Yellow (Yellow) 05/28/25 05:42 Urine Appearance Cloudy (CLEAR) A 05/28/25 05:42 Urine pH 5.0 (5-7) 05/28/25 05:42 Ur Specific [place] 1.019 (1.005-1.030) 05/28/25 05:42 Urine Protein Trace (Negative) A 05/28/25 05:42 Urine Glucose (UA) Negative (Normal) 05/28/25 05:42 Urine Ketones Trace (Negative) 05/28/25 05:42 Urine Blood Negative (Negative) 05/28/25 05:42 Urine Nitrate Negative (Negative) 05/28/25 05:42 Urine Bilirubin Negative (Negative) 05/28/25 05:42 Urine Urobilinogen 1.0 mg/dL (Negative) 05/28/25 05:42 Ur Leukocyte Esterase 1+ (Negative) A 05/28/25 05:42 Urine RBC 6-10 /hpf (0-2) 05/28/25 05:42 Urine WBC 11-20 /hpf (0-5) H 05/28/25 05:42 Ur Squamous Epith Cells 21-50 /hpf (0-5) H 05/28/25 05:42 Calcium Oxalate Crystal 0-4 /hpf H 05/28/25 05:42 Amorphous Sediment Not Reportable 05/28/25 05:42 Urine Bacteria 1+ /hpf (NONE) H 05/28/25 05:42 Hyaline Casts 25-40 /lpf H 05/28/25 05:42 Nasal MRSA (PCR) Not detected (Not Detecte) 05/31/25 11:45 Adenovirus (PCR) Not detected (NOT DETECT) 05/27/25 23:15 C. pneumoniae DNA (PCR) Not detected (NOT DETECT) 05/27/25 23:15 Coronavirus 229E (PCR) Not detected (NOT DETECT) 05/27/25 23:15 Human Metapneumovir PCR Not detected (NOT DETECT) 05/27/25 23:15 Influenza A (H1) PCR Not detected (NOT DETECT) 05/27/25 23:15 Influ A (H1/09) PCR Not detected (NOT DETECT) 05/27/25 23:15 Influenza A (H3) PCR Not detected (NOT DETECT) 05/27/25 23:15 Influenza Type A (PCR) Not detected (NOT DETECT) 05/27/25 23:15 Influenza Type B (PCR) Not detected (NOT DETECT) 05/27/25 23:15 M. pneumoniae (PCR) Not detected (NOT DETECT) 05/27/25 23:15 Parainfluenza 1 (PCR) Not detected (NOT DETECT) 05/27/25 23:15 Parainfluenza 2 (PCR) Not detected (NOT DETECT) 05/27/25 23:15 Parainfluenza 3 (PCR) Not detected (NOT DETECT) 05/27/25 23:15 Parainfluenza 4 (PCR) Not detected (NOT DETECT) 05/27/25 23:15 RSV Type A (PCR) Not detected (NOT DETECT) 05/27/25 23:15 RSV Type B (PCR) Not detected (NOT DETECT) 05/27/25 23:15 Entero/Rhino (PCR) Not detected (NOT DETECT) 05/27/25 23:15 SARS-CoV-2 (PCR) Detected (NOT DETECT) A 05/27/25 23:15 Vitals Last Vital Signs Temp 96.2 F L 06/01/25 05:00 Pulse 59 L 06/01/25 06:00 Resp 15 06/01/25 06:00 BP 148/78 06/01/25 06:00 Pulse Ox 94 06/01/25 06:00 O2 Del Method Room Air 05/31/25 18:00 O2 Flow Rate 2 05/31/25 09:30 Discharge Plan Discharge Patient Disposition: Home Condition: Stable Prescriptions: New doxycycline monohydrate 100 mg Tablet 100 mg PO BID 10 Days Qty: 20 0RF pantoprazole 40 mg Tablet,Delayed Release (Dr/Ec) 40 mg PO DAILY 15 Days Qty: 15 0RF Continued ivermectin 3 mg tablet 3 mg PO DAILY PRN (Reason: unknown) diphenhydramine HCl [Benadryl] 25 mg capsule 25 mg PO TID PRN (Reason: Allergy Symptoms) fluconazole 100 mg tablet 100 mg PO DAILY Qty: 90 2RF ondansetron HCl 4 mg tablet 4 mg PO Q6H PRN (Reason: nausea and vomiting) Qty: 30 3RF prochlorperazine maleate [Compazine] 10 mg tablet 10 mg PO Q4H PRN (Reason: mild nausea) Qty: 30 3RF valacyclovir 500 mg tablet 500 mg PO BID Qty: 60 5RF Rx Instructions: Continue 3 months post treatment for prevention of viral infection potassium chloride [Klor-Con M20] 20 mEq tablet,ER particles/crystals 20 meq PO DAILY Qty: 30 0RF oxycodone-acetaminophen [Percocet] 10-325 mg tablet 1 tab PO Q8H PRN (Reason: pain) Qty: 20 0RF escitalopram oxalate 10 mg Tablet 10 mg PO DAILY trazodone 150 mg tablet 150 mg PO BEDTIME benzonatate 100 mg capsule 100 mg PO TID PRN (Reason: Cough) fluticasone propionate 50 mcg/actuation spray,suspension 2 spray INTRANASAL BID sulfamethoxazole-trimethoprim [Bactrim DS] 800-160 mg tablet See Rx Instructions .ROUTE .COMPLEX Rx Instructions: Take 1 tablet by mouth on Saturday, Saturday, and Saturday. Held lisinopril 20 mg tablet 20 mg PO DAILY Hold Instructions: Resume on 06/15/25. Discontinued dexamethasone 20 mg tablet 20 mg PO .COMPLEX Qty: 30 4RF Rx Instructions: Take in the morning on days 1-2, 8-9, 15-16 of a 21 day cycle Take with food cefuroxime axetil 500 mg tablet 500 mg PO Q12H 10 Days Qty: 20 0RF cefdinir 300 mg capsule 300 mg PO BID No Action Eliquis 5 mg tablet 5 mg PO BID lenalidomide 25 mg capsule 25 mg PO DAILY 21 Days Qty: 14 4RF Rx Instructions: swallow whole with glass of water; do not open, crush, chew , break, or dissolve Take on days 1-14 of a 21 day cycle [id number] Discharge Order = DC NOW: Discharge Order (Routine); Ordered 06/01/25 Ordered By: Kristofer Chen Other Ambulatory Orders: DME: Kenny (Order) Location: None Selected Ordered By: Kristofer Chen Referrals: Ryne Madison MD [Primary Care Provider, Family Practice] - 06/14/25 7:45 am Jake Arriaga MD [Hospitalist, Oncology] - 06/03/25 8:30 am Discharge Diet: Cardiac Discharge Activity: Resume usual activity and Increase activity as tolerated Patient Instructions: Doxycycline (By mouth), Pantoprazole (By mouth), Thrombocytopenia (DC), COVID-19 (Coronavirus Disease 2019) (DC), Opioid Safety, Patient Portal & [facility] Instructions Activity Restrictions/Additional Instructions: Please follow-up with oncology at the earliest. He should have a repeat CBC done in 3 days. Please do not take your Eliquis, lisinopril lenalidomide, dexamethasone for now. Restart those medications after confirming with oncology. Please check your blood pressure daily at home and. Goal blood pressure is between 100-140 systolics. Follow-up with a primary care provider within next 2 weeks for further adjustment of antihypertensive as needed. Maintain your oral hydration with up to 50 to 60 ounces of liquid daily. At least 20 ounces of that should be Gatorade to maintain your electrolyte intake. Please use proper fall precautions. Discharge Attestations Time Spent in Discharge Care*: greater than 30 min Specific Discharge Activities: educating patient, educating and/or supporting family/caregiver, discussing with pcp/other providers, discussing with mental health case manager/social workers/dc planners, documenting/other paperwork and evaluating patient/reviewing data Status at Discharge: Cognitive status at discharge: cognitively intact , Behavioral status at discharge: cooperative , Functional status at discharge: uses cane/walker , Overall status at discharge: patient is progressing back to baseline Quality Metrics Clinical Quality Measures [ No reported AMI, CVA or VTE this stay] Coding Level of Care Code 94005 Total time (in minutes) for Discharge: 65 Diagnoses Weakness R53.1 Acute hypokalemia E87.6 Acute hypotension I95.9 Acute dehydration E86.0 Acute renal failure N17.9 Multiple myeloma C90.00 Metastasis to bone C79.51 Acute pulmonary embolism without acute cor pulmonale, unspecified pulmonary embolism type I26.99 Acute cor pulmonale presence: without acute cor pulmonale Chronicity: acute Pulmonary embolism type: unspecified Thrombocytopenia D69.6 Leukopenia D72.819 COVID-19 U07.1
--- NOTE | 2025-06-01 12:33 | PC.NURSE ---
Discharged patient at 1145. Reveiwed upcoming oncology and PCP appointments, upcoming blood draws. Discontinued medication and activity restrictions. IV removed. Merlyn signature form signed. Accompanied by . sent home with ROllator
== END 2025-06-01 11:45 | disposition home or self-care (01) | DRG 871 ==
LOC: ER 21:31 → ICU 22:18
PROVIDERS: Emergency Medicine; Internal Medicine; Admitting Provider Internal Medicine; Emergency Provider Student in an Organized Health Care Education/Training Program; PCP Family Medicine; Visit Provider Student in an Organized Health Care Education/Training Program
DX: A41.9 Sepsis, unspecified organism (principal); U07.1 COVID-19; N17.9 Acute kidney failure, unspecified; C90.00 Multiple myeloma not having achieved remission; C79.51 Secondary malignant neoplasm of bone; E86.0 Dehydration; E87.6 Hypokalemia; D69.59 Other secondary thrombocytopenia; J01.90 Acute sinusitis, unspecified; R53.1 Weakness; D70.1 Agranulocytosis secondary to cancer chemotherapy; Z86.711 Personal history of pulmonary embolism; Z79.01 Long term (current) use of anticoagulants; Z79.899 Other long term (current) drug therapy; T45.1X5A Adverse effect of antineoplastic and immunosuppressive drugs, initial encounter
CPT/HCPCS: 36415; 36416; 71045; 71250; 74176; 80048; 80053; 80503; 81001; 82607; 82746; 82962; 83010; 83036; 83540; 83550; 83605; 83615; 83735; 84100; 84145; 84443; 84484; 85025; 85651; 86140; 86618; 86666; 86757; 87040; 87449; 87486; 87581; 87633; 93005; 96365; 96375; 97110; 97116; 97162; 97165; 99285; J0692; J1100; J2270; J2543; J3373; J3480; J3490; J7030; J7050; J9999

== ENCOUNTER 2025-05-28 05:00 | Outpatient (RCR) | payer MEDICARE, SELFPAY | END 2025-06-27 23:59 | disposition home or self-care (01) | LOC: SPT 05:00 | PROVIDERS: PCP Family Medicine; Visit Provider Registered Nurse | DX: M84.521D Pathological fracture in neoplastic disease, right humerus, subsequent encounter for fracture with routine healing (principal); C90.00 Multiple myeloma not having achieved remission | CPT/HCPCS: 97110 ==

== ENCOUNTER 2025-06-06 20:30 | Emergency (ER) | payer MEDICARE, SELFPAY ==
[2025-06-06 20:40] VITALS: BP 143/85; PULSE 67; RESP 16; TEMP 36.4; O2SAT 95
[2025-06-07] VITALS: BP 158/79; PULSE 60; RESP 18; O2SAT 97
--- NOTE | 2025-06-07 00:34 | CTR_ITS ---
PROCEDURE INFORMATION: Exam: CT Cervical Spine Without Contrast Exam date and time: 06/07/2025 12:44 AM Age: 69 years old Clinical indication: Numbness; C/O parasthesia to all four extremities. History of multiple myeloma. ; Additional info: Bilateral ue and le paresthesia, HX multiple myeloma TECHNIQUE: Imaging protocol: Computed tomography of the cervical spine without contrast. Radiation optimization: All CT scans at this facility use at least one of these dose optimization techniques: automated exposure control; mA and/or kV adjustment per patient size (includes targeted exams where dose is matched to clinical indication); or iterative reconstruction. COMPARISON: PT PET WB melanoma INITIAL [id number] 03/19/2025 8:59 AM RADIATION DOSE METRICS: Total DLP (mGy-cm): 425.97 FINDINGS: Bones: [id number] degenerative changes of the cervical spine with multilevel endplate spurring and disc space narrowing probably most conspicuous at C5-C6. No severe central canal or neural foraminal narrowing. Lungs: Lung apices are normal. Soft tissues: Atheromatous calcifications of the carotids. Otherwise Unremarkable. CT/CT cervical spin wo con* [id number] IMPRESSION: No definite acute fracture or hemorrhage.
--- NOTE | 2025-06-07 00:34 | CTR_ITS ---
PROCEDURE INFORMATION: Exam: CT Head Without Contrast Exam date and time: 06/07/2025 12:42 AM Age: 69 years old Clinical indication: Weakness, extremity; Bilateral; C/O parasthesia to all four extremities. History of multiple myeloma. ; Additional info: Paresthesias TECHNIQUE: Imaging protocol: Computed tomography of the head without contrast. Radiation optimization: All CT scans at this facility use at least one of these dose optimization techniques: automated exposure control; mA and/or kV adjustment per patient size (includes targeted exams where dose is matched to clinical indication); or iterative reconstruction. COMPARISON: CT head wo con* [id number] 04/23/2025 12:42 PM RADIATION DOSE METRICS: Total DLP (mGy-cm): 1038.48 FINDINGS: Brain: See Cerebral ventricles finding. Cerebral ventricles: Mild involutional changes of the ventricles and sulci. Paranasal sinuses: Mild sphenoid sinus disease. Moderate ethmoid sinus disease. 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 Otherwise Visualized sinuses are unremarkable. No fluid levels. Mastoid air cells: Visualized mastoid air cells are well aerated. Bones: Unremarkable. No acute fracture. Soft tissues: Unremarkable. CT/CT head wo con* [id number] IMPRESSION: No definite acute intracranial abnormality.
--- NOTE | 2025-06-07 00:34 | USR_ITS ---
PROCEDURE INFORMATION: Exam: US Duplex Lower Extremity Veins, Bilateral Exam date and time: 06/07/2025 1:57 AM Age: 69 years old Clinical indication: Pain; Leg, upper and leg, lower; Bilateral; Additional info: Bilat le pain, swelling, paresthesias in cancer PT TECHNIQUE: Imaging protocol: Real-time duplex ultrasound of the bilateral extremities with 2-D camacho scale, color Doppler flow and spectral waveform analysis including responses to compression and other maneuvers (when performed) with image documentation. Complete exam focused on the lower extremity veins. COMPARISON: No relevant prior studies available. FINDINGS: Right deep veins: The common femoral, femoral, proximal profunda femoral, popliteal, posterior tibial, and peroneal veins are patent without thrombus. Normal compressibility and/or augmentation response. Left deep veins: The common femoral, femoral, proximal profunda femoral, popliteal, posterior tibial, and peroneal veins are patent without thrombus. Normal compressibility and/or augmentation response. Superficial veins: Greater saphenous veins at the saphenofemoral junctions are patent bilaterally without thrombus. Soft tissues: Unremarkable as visualized. US/[place] [id number] IMPRESSION: No evidence for deep venous thrombosis in the right or left lower extremities.
--- NOTE | 2025-06-07 00:51 | W.ED.GENADLT ---
HPI - General Adult General: Chief complaint: General Medical Stated complaint: Numbness in both arms and legs, can barely walk Time Seen by Provider: 06/07/25 00:24 History of Present Illness: 69-year-old female who was hospitalized last week with COVID-19. She has a history of pulmonary embolism, and had been on apixaban, but had discontinued due to thrombocytopenia. She also has a history of multiple myeloma. She presents with paresthesias to the upper and lower extremities bilaterally. She says she has swelling to her lower extremities bilaterally. She is weak, having trouble standing and walking for the past 24 hours or so. These are all new symptoms. No continued fevers. No cough. No shortness of breath. No chest discomfort. No vomiting or diarrhea. She complains of chronic left hip pain. Related Data Home Medications ?Medication ?Instructions ?Recorded ?Confirmed apixaban 5 mg tablet (Eliquis) 5 mg PO BID 02/24/25 06/03/25 escitalopram oxalate 10 mg tablet 10 mg PO DAILY 04/23/25 06/03/25 trazodone 150 mg tablet 150 mg PO BEDTIME 04/23/25 06/03/25 ivermectin 3 mg tablet 3 mg PO DAILY PRN unknown 04/28/25 06/03/25 diphenhydramine HCl 25 mg capsule 25 mg PO TID PRN Allergy Symptoms 05/20/25 06/03/25 (Benadryl) benzonatate 100 mg capsule 100 mg PO TID PRN Cough 05/28/25 06/03/25 fluticasone propionate 50 2 spray intranasal BID 05/28/25 06/03/25 mcg/actuation nasal spray,suspension lisinopril 20 mg tablet 20 mg PO DAILY 05/28/25 06/03/25 Held on 06/01/25. Instructions: Resume on 06/15/25. sulfamethoxazole 800 See Rx Instructions .Route .COMPLEX 05/28/25 06/03/25 mg-trimethoprim 160 mg tablet (Bactrim DS) Previous Rx's ?Medication ?Instructions ?Recorded oxycodone-acetaminophen 10 mg-325 1 tab PO Q8H PRN pain #20 tabs 03/15/25 mg tablet (Percocet) fluconazole 100 mg tablet 100 mg PO DAILY fungal infection 05/04/25 prevention #90 tabs ondansetron HCl 4 mg tablet 4 mg PO Q6H PRN nausea and 05/04/25 vomiting #30 tabs prochlorperazine maleate 10 mg 10 mg PO Q4H PRN mild nausea #30 05/04/25 tablet (Compazine) tabs valacyclovir 500 mg tablet 500 mg PO BID #60 tabs 05/04/25 potassium chloride 20 mEq 20 meq PO DAILY #30 tabs 05/27/25 tablet,extended release(part/cryst) (Klor-Con M) doxycycline monohydrate 100 mg 100 mg PO BID 10 days #20 tabs 06/01/25 tablet pantoprazole 40 mg tablet,delayed 40 mg PO DAILY 15 days #15 tabs 06/01/25 release lenalidomide 15 mg capsule 15 mg PO DAILY #14 caps 06/03/25 Allergies Allergy/AdvReac Type Severity Reaction Status Date / Time No Known Drug Allergies Allergy Mild Unknown Verified 06/03/25 08:27 [facility] PFSH: Medical History Pulmonary embolism Metastasis to bone Multiple myeloma Social History Smoking and tobacco/nicotine status: never used tobacco/nicotine Physical Exam Const: COMMON NORMALS: no acute distress GENERAL APPEARANCE: cooperative; not ill appearing and not frail appearing HENMT: COMMON NORMALS: normocephalic, atraumatic and Normal external nose present HEAD & SCALP: normocephalic and atraumatic FACE & SINUS: normal facial exam and face symmetric NOSE: Normal external nose present Eye: COMMON NORMALS: Equal, round and reactive pupils present and EOMs intact bilaterally PUPIL: Yes Equal, round and reactive pupils present Neck/C-Spine: GENERAL: Yes trachea midline Chest: CHEST: Yes Symmetrical chest wall rise Resp: COMMON NORMALS: normal respiratory effort, No retractions, No use of accessory muscles and clear to auscultation bilaterally AUSCULTATION: clear to auscultation bilaterally Cardio: COMMON NORMALS: regular rate and regular rhythm RATE: regular rate RHYTHM: regular rhythm GI: COMMON NORMALS: Normal to inspection, nondistended, normoactive bowel sounds present Extremity: NARRATIVE EXTREMITY EXAM: Mild edema present Neuro: DENIZ COMA SCALE: document GCS findings [place] coma scale eye opening: Spontaneous Deniz coma scale verbal response: Orientated [place] coma scale motor response: Obey commands Deniz coma scale total score: 15 SENSORY EXAM: Yes extremities (intact) Psych: COMMON NORMALS: speech normal SPEECH: Yes normal speech Skin: COMMON NORMALS: no rashes or lesions noted GENERAL SKIN EXAM: no rashes or lesions noted Course Vital Signs: Vital signs: Vital Signs Temperature 97.5 F L 06/06/25 20:40 Pulse Rate 60 06/07/25 04:21 Respiratory Rate 14 06/07/25 04:21 Blood Pressure 143/70 06/07/25 04:21 Pulse Oximetry 95 06/07/25 04:21 Oxygen Delivery Me thod Room Air 06/07/25 00:00 MDM - General Adult Medical Decision Making 69-year-old female with paresthesias to the upper and lower extremities as well as lower extremity edema bilaterally. She has has some generalized weakness. This is not terribly different from when she was in the hospital a few days ago. Vitals are stable. Hemoglobin is 11. White blood cell count is 3.2 without clinically significant neutropenia. BMP is not remarkable. CT of the cervical spine, as she has not had a history of multiple myeloma with bone lesions, and upper and lower extremity paresthesias and weakness. It is negative for mass or bony invasion. Head CT done for the same reason is negative. Bilateral Dopplers are negative. Her platelet count is back to normal. Urinalysis is negative. She is relieved that she does not have significant DVT, etc. She is given 1 dose of Lasix here for the swelling. She be discharged. Outpatient follow-up. Lab Data 06/07/25 02:30 06/07/25 02:30 Radiology Impressions Cervical Spine CT 06/07/25 00:34 IMPRESSION: No definite acute fracture or hemorrhage. Head CT 06/07/25 00:34 IMPRESSION: No definite acute intracranial abnormality. Venous Duplex 06/07/25 00:34 IMPRESSION: No evidence for deep venous thrombosis in the right or left lower extremities. Laboratory Results WBC 3.16 10^3/uL (3.29-11.43) L 06/07/25 02:30 RBC 3.72 10^6/uL (3.85-5.65) L 06/07/25 02:30 Hgb 10.90 g/dL (11.27-16.99) L 06/07/25 02:30 Hct 32.9 % (36-47) L 06/07/25 02:30 MCV 88.4 fl (85-98) 06/07/25 02:30 MCH 29.3 pg (27-33) 06/07/25 02:30 MCHC 33.1 g/dL (30-55) 06/07/25 02:30 RDW 14.6 % (12.1-15.1) 06/07/25 02:30 Plt Count 172 10^3/cmm (157-399) 06/07/25 02:30 MPV 11.4 fL (7.4-10.4) H 06/07/25 02:30 Neut % (Auto) 47.5 % 06/07/25 02:30 Lymph % (Auto) 28.2 % 06/07/25 02:30 Hardy % (Auto) 20.6 % 06/07/25 02:30 Eos % (Auto) 2.5 % 06/07/25 02:30 Baso % (Auto) 0.9 % 06/07/25 02:30 Neut # (Auto) 1.50 10^3/uL (1.8-7.7) L 06/07/25 02:30 Lymph # (Auto) 0.9 10^3/uL (0.8-4.8) 06/07/25 02:30 Hardy # (Auto) 0.7 10^3/uL (0.2-0.9) 06/07/25 02:30 Eos # (Auto) 0.1 10^3/uL (0.0-0.8) 06/07/25 02:30 Baso # (Auto) 0.0 10^3/uL (0.0-0.1) 06/07/25 02:30 Nucleated RBC % (auto) 0 % 06/07/25 02:30 Nucleated RBCs # 0.0 /100WBC 06/07/25 02:30 PT 13.40 SECONDS (12.1-14.9) 06/07/25 02:30 INR 0.95 (0.8-1.2) 06/07/25 02:30 APTT 27.8 SECONDS (23.9-36.7) 06/07/25 02:30 Sodium 137 mmol/L (136-145) 06/07/25 02:30 Potassium 4.2 mmol/L (3.5-5.1) 06/07/25 02:30 Chloride 101 mmol/L (98-107) 06/07/25 02:30 Carbon Dioxide 25 mmol/L (22-29) 06/07/25 02:30 Anion Gap 15.2 (5-19) 06/07/25 02:30 BUN 7 mg/dL (8-23) L 06/07/25 02:30 Creatinine 0.5 mg/dL (0.5-0.9) 06/07/25 02:30 GFR Calculation Not Reportable 06/07/25 02:30 Glucose 122 mg/dL (65-115) H 06/07/25 02:30 Calculated Osmolality 283 mOsm/kg (285-295) L 06/07/25 02:30 Lactic Acid 1.0 mmol/L (0.5-2.2) 06/07/25 02:30 Calcium 9.2 mg/dL (8.5-10.5) 06/07/25 02:30 Magnesium 1.8 mg/dL (1.7-2.3) 06/07/25 02:30 Total Bilirubin 0.7 mg/dL (0.15-1.2) 06/07/25 02:30 AST 15 U/L (0-32) 06/07/25 02:30 ALT 15 U/L (0-33) 06/07/25 02:30 Alkaline Phosphatase 91 U/L (35-105) 06/07/25 02:30 Creatine Kinase 30 U/L (26-192) 06/07/25 02:30 C-Reactive Protein 12.2 mg/L (0.0-4.9) H 06/07/25 02:30 NT-Pro-B Natriuret Pep 259 pg/mL (0-125) H 06/07/25 02:30 Total Protein 5.9 g/dL (6.6-8.7) L 06/07/25 02:30 Albumin 3.5 g/dL (3.5-5.2) 06/07/25 02:30 Globulin 2.4 g/dL (1.3-4.6) 06/07/25 02:30 Urine Color Yellow (Yellow) 06/07/25 03:00 Urine Appearance Cloudy (CLEAR) A 06/07/25 03:00 Urine pH >=9.0 (5-7) A 06/07/25 03:00 Ur Specific [place] 1.009 (1.005-1.030) 06/07/25 03:00 Urine Protein Negative (Negative) 06/07/25 03:00 Urine Glucose (UA) Negative (Normal) 06/07/25 03:00 Urine Ketones Negative (Negative) 06/07/25 03:00 Urine Blood Negative (Negative) 06/07/25 03:00 Urine Nitrate Negative (Negative) 06/07/25 03:00 Urine Bilirubin Negative (Negative) 06/07/25 03:00 Urine Urobilinogen 1.0 mg/dL (Negative) 06/07/25 03:00 Ur Leukocyte Esterase Negative (Negative) 06/07/25 03:00 Urine RBC 3-5 /hpf (0-2) 06/07/25 03:00 Urine WBC 0-5 /hpf (0-5) 06/07/25 03:00 Ur Squamous Epith Cells 0-5 /hpf (0-5) 06/07/25 03:00 Amorphous Sediment Not Reportable 06/07/25 03:00 Urine Bacteria Trace /hpf (NONE) 06/07/25 03:00 Hyaline Casts 0.81 /lpf 06/07/25 03:00 All radiology interpretation(s) finalized by discharge Discharge Plan Discharge Patient Disposition: Home Clinical Impression: Bilateral lower extremity edema, Bilateral leg paresthesia, Paresthesia and pain of both upper extremities Condition: Stable Prescriptions: No Action Eliquis 5 mg tablet 5 mg PO BID ivermectin 3 mg tablet 3 mg PO DAILY PRN (Reason: unknown) diphenhydramine HCl [Benadryl] 25 mg capsule 25 mg PO TID PRN (Reason: Allergy Symptoms) lenalidomide 15 mg capsule 15 mg PO DAILY Qty: 14 0RF Rx Instructions: swallow whole with glass of water; do not open, crush, chew , break, or dissolve take on days 1-14 of each cycle [id number] fluconazole 100 mg tablet 100 mg PO DAILY Qty: 90 2RF ondansetron HCl 4 mg tablet 4 mg PO Q6H PRN (Reason: nausea and vomiting) Qty: 30 3RF prochlorperazine maleate [Compazine] 10 mg tablet 10 mg PO Q4H PRN (Reason: mild nausea) Qty: 30 3RF valacyclovir 500 mg tablet 500 mg PO BID Qty: 60 5RF Rx Instructions: Continue 3 months post treatment for prevention of viral infection potassium chloride [Klor-Con M20] 20 mEq tablet,ER particles/crystals 20 meq PO DAILY Qty: 30 0RF oxycodone-acetaminophen [Percocet] 10-325 mg tablet 1 tab PO Q8H PRN (Reason: pain) Qty: 20 0RF escitalopram oxalate 10 mg Tablet 10 mg PO DAILY trazodone 150 mg tablet 150 mg PO BEDTIME lisinopril 20 mg tablet 20 mg PO DAILY benzonatate 100 mg capsule 100 mg PO TID PRN (Reason: Cough) fluticasone propionate 50 mcg/actuation spray,suspension 2 spray INTRANASAL BID sulfamethoxazole-trimethoprim [Bactrim DS] 800-160 mg tablet See Rx Instructions .ROUTE .COMPLEX Rx Instructions: Take 1 tablet by mouth on Saturday, Saturday, and Saturday. doxycycline monohydrate 100 mg Tablet 100 mg PO BID 10 Days Qty: 20 0RF pantoprazole 40 mg Tablet,Delayed Release (Dr/Ec) 40 mg PO DAILY 15 Days Qty: 15 0RF Discharge Orders: Discharge ED (Routine); Ordered 06/07/25 Ordered By: Jomar Castillo Referrals: Ryne Madison MD [Primary Care Provider, Family Practice] - 4-7 days Patient Instructions: Paresthesia (ED), Leg Edema (ED), Opioid Safety, Pain Management, Patient Portal & Wiley Instructions Activity Restrictions/Additional Instructions: Return for worsening swelling, worsening pain or numbness, other concerning symptoms. Call your doctor later this morning for a follow-up appointment. There may be more outpatient testing needed. Print Language: Chinese Coding Level of Care Code ED Casting Sorter for Yeison Xie
[2025-06-07 02:57] LABS: Hematocrit 32.9 % (36-47); Hemoglobin 10.90 g/dL (11.27-16.99); Mean Corpuscular HGB Conc 33.1 g/dL (30-55); Mean Corpuscular Hemoglobin 29.3 pg (27-33); Mean Corpuscular Volume 88.4 fl (85-98); Nucleated Red Blood Cells % 0 %; Platelet Count 172 10^3/cmm (157-399); Red Blood Count 3.72 10^6/uL (3.85-5.65); White Blood Count 3.16 10^3/uL (3.29-11.43)
[2025-06-07 03:13] LABS: INR 0.95 (0.8-1.2); Partial Thromboplastin Time 27.8 SECONDS (23.9-36.7); Prothrombin Time 13.40 SECONDS (12.1-14.9)
[2025-06-07 03:18] LABS: Lactic Sepsis W/Reflex 1.0 mmol/L (0.5-2.2)
[2025-06-07 03:28] LABS: Alanine Aminotransferase 15 U/L (0-33); Albumin Level 3.5 g/dL (3.5-5.2); Alkaline Phosphatase 91 U/L (35-105); Anion Gap 15.2 (5-19); Aspartate Amino Transferase 15 U/L (0-32); Blood Urea Nitrogen 7 mg/dL (8-23); Calcium 9.2 mg/dL (8.5-10.5); Carbon Dioxide 25 mmol/L (22-29); Chloride 101 mmol/L (98-107); Creatinine Clr Calc Pharmacy 79.3469; Globulin 2.4 g/dL (1.3-4.6); Glucose 122 mg/dL (65-115); Magnesium 1.8 mg/dL (1.7-2.3); NT Pro B Type Natriuretic Pept 259 pg/mL (0-125); Osmolality Calculated 283 mOsm/kg (285-295); Potassium 4.2 mmol/L (3.5-5.1); Sodium 137 mmol/L (136-145); Total Protein 5.9 g/dL (6.6-8.7)
[2025-06-07 03:45] LABS: Glucose Urine UA Negative (Normal); Nitrate Urine Negative (Negative); Specific Gravity, Urine 1.009 (1.005-1.030)
[2025-06-07 03:50] LABS: Add Urine Microscopic? YES
[2025-06-07 04:21] VITALS: BP 143/70; PULSE 60; RESP 14; O2SAT 95
--- OUTSIDE RECORDS SUMMARY | 2025-06-09 08:00 | XMS_ITS ---
Author Organization Unknown Results OrderDate OrderTestName ResultName ResultDate Value Units Range AbnormalFlag ResultStatus ObservationNotes TestCode ResultCode DateRecorded AccessionNumber DiagnosticSectionCode DiagnosticSectionName Sequence Interpretation Cust om 03/12/2025 00:00:00 CBC [facility] 9470-95-78N52:00:00 33.5 g/dl 32.0 -36.0 Final [facility] 03/12/2025 00:00: 00:00:51KGMucj4272-86-04U50:00:0094.3fl80.0-99.9 Final Coding CBC Coding mcv 03/12/2025 00:00: 00:00:00CMP, SERUM OR PLASMAchloride 7355-94-07X30:00:57338.0mmol/l98.0-110.0normalFinal Coding CMP, SERUM OR PLASMA Coding chloride 03/12/2025 00:00: 00:00:00URINALYSIS, COMPLETEother 8379-21-00T95:00:00NEGATIVEFinal Coding URINALYSIS, COMPLETE Coding other 02/03/2025 00:00: 00:00:00CMP, SERUM OR PLASMAbun (blood urea nitrogen)2340-60-21Q67:00:0021.0mg/dl10.0-26.0Final Coding CMP, SERUM OR PLASMA Coding bun (blood urea nitrogen) 02/03/2025 00:00: 00:00:00IMMUNOFIXATION + PROTEIN ELECTROPHORESIS + FREE LIGHT CHAINS, MCJCGmxceodvllepaqs0683-63-27U69:00:00SEE NOTEFinal Coding IMMUNOFIXATION + PROTEIN ISRAEL CTROPHORESIS + FREE LIGHT CHAINS, SERUM Coding interpretation interpretation 02/03/2025 00:00: 00:00:00CBClymphocytes #8544-54-12Q38:00:002.5x10 Final Coding CBC Coding lymphocytes # 03/12/2025 00:00: 00:00:00KAPPA LIGHT CHAINS FREE/LAMBDA LIGHT CHAINS FREE, RATIO, URINEkappa light chain, free, lgyzu7900-17-45M82:00:0023.43 mg/l<=32.90Final Coding KAPPA LIGHT CHAINS FREE/BATRES DA LIGHT CHAINS FREE, RATIO, URINE Coding kappa light chain, free, uri ne kappa light chain, free, uri ne 02/03/2025 00:00: 00:00:00IMMUNOFIXATION, URINEife interpretation 6057-73-84H19:00:00Final Coding IMMUNOFIXATION, URINE Coding tori interpretation tori interpretation 02/05/2025 00:00: 00:00:00CMP, SERUM OR PLASMAaltv (sgpt) 5577-18-63W43:00:0016.0u/l13.0-69.0normalFinal Coding CMP, SERUM OR PLASMA Coding altv (sgpt) 03/12/2025 00:00: 00:00:00CMP, SERUM OR PLASMAalbumin 9217-34-25B86:00:004.3g/dl3.5-5.5Final Coding CMP, SERUM OR PLASMA Coding albumin 02/03/2025 00:00: 00:00:00CMP, SERUM OR PLASMAtotal bilirubin 8235-63-14R69:00:001.1mg/dl0.2-1.3Final Coding CMP, SERUM OR PLASMA Coding total bilirubin 02/03/2025 00:00: 00:00:00CMP, SERUM OR AICDDRi502959-30-54G92:00:00 26.0mmol/l22.0-31.0Final Coding CMP, SERUM OR PLASMA Coding c02 02/03/2025 00:00: 00:00:00CMP, SERUM OR PLASMAalp phos 5271-73-19L97:00:0079.0u/l30.0-140.0normalFinal Coding CMP, SERUM OR PLASMA Coding alp phos 03/12/2025 00:00: 00:00:00CMP, SERUM OR PLASMAglucose 3776-40-41R23:00:79914.0mg/dl60.0-99.0highFinal Coding CMP, SERUM OR PLASMA Coding glucose 02/03/2025 00:00: 00:00:22UIXhfr4405-81-09J19:00:0013.6g/dl12.0-16.0 Final Coding CBC Coding hgb 03/12/2025 00:00: 00:00:00CBCmonocytes %3322-27-83H68:00:0010.5% 2.0-16.0Final Coding CBC Coding monocytes % 02/03/2025 00:00:00005/10/2025 00:00:00US, UYYBONAUPYCNWJ3006-19-63D77:00:00 Coding US, ECHOCARDIOGRAM Coding 05/10/2025 00:00: 00:00:00CMP, SERUM OR PLASMAbun/creatinine ratio 9515-67-22E14:00:0035.00ratioFinal Coding CMP, SERUM OR PLASMA Coding bun/creatinine ratio 02/03/2025 00:00: 00:00:00CMP, SERUM OR PLASMAchloride 5969-48-67T39:00:70018.0mmol/l98.0-110.0normalFinal Coding CMP, SERUM OR PLASMA Coding chloride 02/03/2025 00:00: 00:00:00URINALYSIS, GOSAFGEEhv0674-27-21J36:00:00 5.55.0-7.0Final Coding URINALYSIS, COMPLETE Coding ph 02/03/2025 00:00: 00:00:05DBLlpb4842-96-47U17:00:74742.6x10 140.0-451.0Final Coding CBC Coding plt 02/03/2025 00:00: 00:00:00CMP, SERUM OR PLASMAosmolality 2809-05-05H39:00:03093.7calcFinal Coding CMP, SERUM OR PLASMA Coding osmolality 03/12/2025 00:00: 00:00:00CMP, SERUM OR PLASMAglucose 9659-44-81C81:00:18260.0mg/dl60.0-99.0highFinal Coding CMP, SERUM OR PLASMA Coding glucose 03/12/2025 00:00: 00:00:00CMP, SERUM OR PLASMAanion gap 3514-13-33D02:00:009.0calcFinal Coding CMP, SERUM OR PLASMA Coding anion gap 02/03/2025 00:00: 00:00:00CBClymphocytes %5903-82-50F15:00:0039.9% 20.0-50.0Final Coding CBC Coding lymphocytes % 02/03/2025 00:00: 00:00:00CT, CHEST, W/ WIAOHNER5943-44-06N26:00:[address], CHEST, W/ CONTRAST Coding 02/08/2025 00:00: 00:00:00CMP, SERUM OR PLASMAaltv (sgpt) 4848-46-10O12:00:0016.0u/l13.0-69.0normalFinal Coding CMP, SERUM OR PLASMA Coding altv (sgpt) 02/03/2025 00:00: 00:00:00PATHOLOGY NPVKL1280-69-51G58:00:00 Coding PATHOLOGY STUDY Coding 03/19/2025 00:00: 00:00:00URINALYSIS, JVAIYFJNhyz4132-49-98A83:00:00 NEGATIVEFinal Coding URINALYSIS, COMPLETE Coding petros 02/03/2025 00:00: 00:00:00IMMUNOFIXATION + PROTEIN ELECTROPHORESIS + FREE LIGHT CHAINS, NVBVRbprnw5981-69-80P77:00:76899yq/jv450-943bpiPkyfq Coding IMMUNOFIXATION + PROTEIN ISRAEL CTROPHORESIS + FREE LIGHT CHAINS, SERUM Coding kappa kappa 02/03/2025 00:00: 00:00:77NYWigi5159-00-47T80:00:0041.4%37.0-47.0 Final Coding CBC Coding hct 02/03/2025 00:00: 00:00:00BIOPSY, HMKK7145-55-62Y77:00:00 Coding BIOPSY, BONE Coding 04/07/2025 00:00: 00:00:00MRI, UPPER EXTREMITY, W/ CONTRAST 9139-19-69P22:00:00 Coding MRI, UPPER EXTREMITY, W/ CON TRAST Coding 02/09/2025 00:00: 00:00:00KAPPA LIGHT CHAINS FREE/LAMBDA LIGHT CHAINS FREE, RATIO, URINElambda light chain, free, wgsce4079-13-35Y23:00:002.72 mg/l<=3.79Final Coding KAPPA LIGHT CHAINS FREE/BATRES DA LIGHT CHAINS FREE, RATIO, URINE Coding lambda light chain, free, ur ine lambda light chain, free, ur ine 02/03/2025 00:00: 00:00:00CMP, SERUM OR PLASMAtotal bilirubin 1394-67-04H64:00:000.6mg/dl0.2-1.3Final Coding CMP, SERUM OR PLASMA Coding total bilirubin 03/12/2025 00:00: 00:00:00XR, SHOULDER, 2 OR MORE VIEW 3628-78-80Z85:00:00 Coding XR, SHOULDER, 2 OR MORE VIEW Coding 04/13/2025 00:00: 00:00:00CMP, SERUM OR PLASMAbun/creatinine ratio 4286-08-48H73:00:0026.00ratioFinal Coding CMP, SERUM OR PLASMA Coding bun/creatinine ratio 03/12/2025 00:00: 00:00:00CMP, SERUM OR PLASMAsodium 6934-27-70R78:00:92186.0mmol/l136.0-145.0Final Coding CMP, SERUM OR PLASMA Coding sodium 03/12/2025 00:00: 00:00:00URINALYSIS, UJJLTTMOgfk7052-71-63O54:00:00 NEGATIVEFinal Coding URINALYSIS, COMPLETE Coding pro 02/03/2025 00:00: 00:00:98ETQpsd3984-87-62Y19:00:90440.0x10 140.0-451.0Final Coding CBC Coding plt 03/12/2025 00:00: 00:00:00CMP, SERUM OR PLASMAglobulin 8742-13-55B39:00:002.8calcFinal Coding CMP, SERUM OR PLASMA Coding globulin 03/12/2025 00:00: 00:00:31ZXQect3669-54-96D29:00:004.36o823.50-5.50 Final Coding CBC Coding rbc 03/12/2025 00:00: 00:00:00IMMUNOFIXATION + PROTEIN ELECTROPHORESIS + FREE LIGHT CHAINS, SERUMkappa/lambda rmlyk9123-48-96J28:00:001.951.29-2.55Final Coding IMMUNOFIXATION + PROTEIN ISRAEL CTROPHORESIS + FREE LIGHT CHAINS, SERUM Coding kappa/lambda ratio kappa/lambda ratio 02/03/2025 00:00: 00:00:00CMP, SERUM OR PLASMAa/g ratio 4612-28-36X63:00:001.5ratioFinal Coding CMP, SERUM OR PLASMA Coding a/g ratio 02/03/2025 00:00: 00:00:12GTMrqq2608-17-11M47:00:0013.4%11.5-14.5 Final Coding CBC Coding rdw 02/03/2025 00:00: 00:00:00MRI, UPPER EXTREMITY, W/ CONTRAST 5082-12-74S32:00:00 Coding MRI, UPPER EXTREMITY, W/ CON TRAST Coding 02/11/2025 00:00: 00:00:00CMP, SERUM OR PLASMAast (sgot) 2373-83-23R14:00:0021.0u/l0.0-46.0Final Coding CMP, SERUM OR PLASMA Coding ast (sgot) 03/12/2025 00:00: 00:00:00LDH, SERUM OR NBRTOAtl3586-46-78J83:00:00 177u/w063-068csgdikQpikb Coding LDH, SERUM OR PLASMA Coding ld ld 02/03/2025 00:00: 00:00:00CMP, SERUM OR PLASMAast (sgot) 8685-89-43R79:00:0019.0u/l0.0-46.0Final Coding CMP, SERUM OR PLASMA Coding ast (sgot) 02/03/2025 00:00: 00:00:00DOCUMENT LABEL NOT LISTED 8355-63-62V90:00:00 Coding DOCUMENT LABEL NOT LISTED Coding 03/15/2025 00:00: 00:00:10RTZsyg8590-33-83Z12:00:007.6x104.0-10.5 Final Coding CBC Coding wbc 02/03/2025 00:00: 00:00:00CBCmonocytes #3350-07-23W57:00:000.8x10 Final Coding CBC Coding monocytes # 02/03/2025 00:00: 00:00:17GVDnor6129-89-76Z10:00:0013.8g/dl12.0-16.0 Final Coding CBC Coding hgb 02/03/2025 00:00: 00:00:00URINALYSIS, COMPLETEbili 0025-69-81J45:00:001+abnormalFinal Coding URINALYSIS, COMPLETE Coding bili 02/03/2025 00:00: 00:00:00CBClymphocytes #0717-51-31R82:00:003.0x10 Final Coding CBC Coding lymphocytes # 02/03/2025 00:00: 00:00:00IMMUNOFIXATION + PROTEIN ELECTROPHORESIS + FREE LIGHT CHAINS, SERUMalpha 2 duxtccwq0777-39-38A20:00:000.8g/dl0.5-0.9Final Coding IMMUNOFIXATION + PROTEIN ISRAEL CTROPHORESIS + FREE LIGHT CHAINS, SERUM Coding alpha 2 globulin alpha 2 globulin 02/03/2025 00:00: 00:00:00URINALYSIS, EOTTIOZPydj2513-13-33T60:00:00 0-1Final Coding URINALYSIS, COMPLETE Coding wbc 02/03/2025 00:00: 00:00:00CMP, SERUM OR PLASMApotassium 4917-31-65B86:00:003.8mmol/l3.5-5.1Final Coding CMP, SERUM OR PLASMA Coding potassium 02/03/2025 00:00: 00:00:00PT/RJM4975-80-43U06:00:001.1 Coding PT/INR Coding 03/12/2025 00:00: 00:00:00URINALYSIS, OAEMEHCPmgx0956-49-14N54:00:00 0.2 E.U./DLFinal Coding URINALYSIS, COMPLETE Coding uro 02/03/2025 00:00: 00:00:00URINALYSIS, COMPLETEs.s9272-59-15G03:00:00 >1.0301.005-1.025highFinal Coding URINALYSIS, COMPLETE Coding s.g 02/03/2025 00:00: 00:00:00URINALYSIS, FFADJVKLoua0718-76-42L04:00:00 2-4Final Coding URINALYSIS, COMPLETE Coding rbc 02/03/2025 00:00: 00:00:00CMP, SERUM OR PLASMAglobulin 7299-14-18V91:00:002.9calcFinal Coding CMP, SERUM OR PLASMA Coding globulin 02/03/2025 00:00: 00:00:00CBCgranulcytes %9021-78-68D36:00:0043.4% 30.0-70.0Final Coding CBC Coding granulcytes % 02/03/2025 00:00: 00:00:00CMP, SERUM OR PLASMAcalcium 9794-15-00Y08:00:009.3mg/dl8.4-10.5Final Coding CMP, SERUM OR PLASMA Coding calcium 02/03/2025 00:00: 00:00:72OCHieq4223-98-37N04:00:0031.5pg27.0-32.0 Final Coding CBC Coding mch 02/03/2025 00:00: 00:00:00URINALYSIS, COMPLETEclarity 4738-82-37K65:00:00CLEARFinal Coding URINALYSIS, COMPLETE Coding clarity 02/03/2025 00:00: 00:00:60CRTilm9301-81-60R64:00:004.83l757.50-5.50 Final Coding CBC Coding rbc 02/03/2025 00:00: 00:00:00CBCgranulcytes#6864-33-08S80:00:003.3x10 Final Coding CBC Coding granulcytes# 02/03/2025 00:00: 00:00:00IMMUNOFIXATION + PROTEIN ELECTROPHORESIS + FREE LIGHT CHAINS, SERUMgamma gvprjjjf8754-10-21P03:00:000.7g/dl0.8-1.7lowFinal Coding IMMUNOFIXATION + PROTEIN ISRAEL CTROPHORESIS + FREE LIGHT CHAINS, SERUM Coding gamma globulin gamma globulin 02/03/2025 00:00: 00:00:00CMP, SERUM OR PLASMAtotal protein 5822-82-06W39:00:007.0g/dl6.0-8.5Final Coding CMP, SERUM OR PLASMA Coding total protein 03/12/2025 00:00: 00:00:00CMP, SERUM OR PLASMAcalcium 4673-90-33Z93:00:009.8mg/dl8.4-10.5Final Coding CMP, SERUM OR PLASMA Coding calcium 03/12/2025 00:00: 00:00:00XR, WHOLE CWZG9175-38-81S55:00:00 Coding XR, WHOLE BODY Coding 02/03/2025 00:00: 00:00:00URINALYSIS, COMPLETEcolor 0967-85-63F81:00:00AMBERabnormalFinal Coding URINALYSIS, COMPLETE Coding color 02/03/2025 00:00: 00:00:00LAB*6863-09-15V27:00:00 Coding LAB* Coding 02/08/2025 00:00: 00:00:00URINALYSIS, HJLBEYGTbmt2777-33-32C37:00:00 NEGATIVEFinal Coding URINALYSIS, COMPLETE Coding ket 02/03/2025 00:00: 00:00:21LIKizip9318-81-27M97:00:0033.4g/dl 32.0-36.0Final Coding CBC Coding mchc 02/03/2025 00:00: 00:00:00KAPPA LIGHT CHAINS FREE/LAMBDA LIGHT CHAINS FREE, RATIO, URINEkappa/lambda, free fsped5785-15-09M49:00:008.61<=8.69 Final Coding KAPPA LIGHT CHAINS FREE/BATRES DA LIGHT CHAINS FREE, RATIO, URINE Coding kappa/lambda, free ratio kappa/lambda, free ratio 02/03/2025 00:00: 00:00:00CMP, SERUM OR PLASMAegfr calculated 9226-26-22E29:00:13647.3Final Coding CMP, SERUM OR PLASMA Coding egfr calculated 03/12/2025 00:00: 00:00:09JTQgqo1956-15-44N95:00:006.3x104.0-10.5 Final Coding CBC Coding wbc 03/12/2025 00:00: 00:00:00URINALYSIS, LHQZZYUGxxy9551-72-16A34:00:00 NEGATIVEFinal Coding URINALYSIS, COMPLETE Coding nit 02/03/2025 00:00: 00:00:00CBCmonocytes #3898-05-53F32:00:000.7x10 Final Coding CBC Coding monocytes # 03/12/2025 00:00: 00:00:00IMMUNOFIXATION + PROTEIN ELECTROPHORESIS + FREE LIGHT CHAINS, SERUMprotein, zipvc8084-76-35V71:00:006.5g/dl6.1-8.1Final Coding IMMUNOFIXATION + PROTEIN ISRAEL CTROPHORESIS + FREE LIGHT CHAINS, SERUM Coding protein, total protein, total 02/03/2025 00:00: 00:00:00CMP, SERUM OR PLASMAbun (blood urea nitrogen)4191-79-47O47:00:0013.0mg/dl10.0-26.0Final Coding CMP, SERUM OR PLASMA Coding bun (blood urea nitrogen) 03/12/2025 00:00: 00:00:00CMP, SERUM OR MECYXKk688024-73-64Z57:00:00 27.0mmol/l22.0-31.0Final Coding CMP, SERUM OR PLASMA Coding c02 03/12/2025 00:00: 00:00:00CMP, SERUM OR PLASMAa/g ratio 5176-76-71R41:00:001.5ratioFinal Coding CMP, SERUM OR PLASMA Coding a/g ratio 03/12/2025 00:00: 00:00:00CMP, SERUM OR PLASMApotassium 8706-31-54P03:00:004.0mmol/l3.5-5.1Final Coding CMP, SERUM OR PLASMA Coding potassium 03/12/2025 00:00: 00:00:00CT, CHEST, W/ UVAGGSQA0650-79-30D56:00:[address], CHEST, W/ CONTRAST Coding 02/08/2025 00:00:00005/04/2025 00:00:00BONE MARROW PATHOLOGY BIOPSY REPORT VRXFQPQPU4630-35-79V03:00:00 Coding BONE MARROW PATHOLOGY BIOPSY REPORT NARRATIVE Coding 05/04/2025 00:00: 00:00:00CBCgranulcytes#1698-73-57X71:00:002.8x10 Final Coding CBC Coding granulcytes# 03/12/2025 00:00: 00:00:11MFNrlc2670-30-44I28:00:0031.6pg27.0-32.0 Final Coding CBC Coding mch 03/12/2025 00:00: 00:00:00TSH + FREE T4, HYFYYbhw6407-46-85P86:00:00 1.75miu/l0.40-4.50normalFinal Coding TSH + FREE T4, SERUM Coding tsh tsh 02/03/2025 00:00: 00:00:00CMP, SERUM OR PLASMAsodium 5971-28-00X38:00:10890.0mmol/l136.0-145.0Final Coding CMP, SERUM OR PLASMA Coding sodium 02/03/2025 00:00: 00:00:00CMP, SERUM OR PLASMAalbumin 8432-49-35U73:00:004.2g/dl3.5-5.5Final Coding CMP, SERUM OR PLASMA Coding albumin 03/12/2025 00:00: 00:00:00TSH + FREE T4, SERUMt4, free 5565-40-50E74:00:001.4ng/dl0.8-1.8normalFinal Coding TSH + FREE T4, SERUM Coding t4, free t4, free 02/03/2025 00:00: 00:00:00IMMUNOFIXATION + PROTEIN ELECTROPHORESIS + FREE LIGHT CHAINS, TBGAEjpwpxax2326-38-78X06:00:003.9g/dl3.8-4.8Final Coding IMMUNOFIXATION + PROTEIN ISRAEL CTROPHORESIS + FREE LIGHT CHAINS, SERUM Coding albumin albumin 02/03/2025 00:00: 00:00:75UBAwvx4789-49-46T45:00:0094.2fl80.0-99.9 Final Coding CBC Coding mcv 02/03/2025 00:00: 00:00:00CMP, SERUM OR PLASMAcreatinine (serum) 6404-07-88W48:00:000.6mg/dl0.4-1.5Final Coding CMP, SERUM OR PLASMA Coding creatinine (serum) 02/03/2025 00:00: 00:00:00URINALYSIS, COMPLETEepi cells 6826-69-61T19:00:0015-20Final Coding URINALYSIS, COMPLETE Coding epi cells 02/03/2025 00:00: 00:00:00IMMUNOFIXATION + PROTEIN ELECTROPHORESIS + FREE LIGHT CHAINS, SERUMbeta 1 irkoegov5640-07-33D91:00:000.5g/dl0.4-0.6Final Coding IMMUNOFIXATION + PROTEIN ISRAEL CTROPHORESIS + FREE LIGHT CHAINS, SERUM Coding beta 1 globulin beta 1 globulin 02/03/2025 00:00: 00:00:00CMP, SERUM OR PLASMAosmolality 2218-89-55T48:00:65469.7calcFinal Coding CMP, SERUM OR PLASMA Coding osmolality 02/03/2025 00:00: 00:00:00URINALYSIS, COMPLETEbacteria 7603-98-52E25:00:00TRACE MIXED FLORAFinal Coding URINALYSIS, COMPLETE Coding bacteria 02/03/2025 00:00: 00:00:00CBClymphocytes %8446-46-71H16:00:0039.2% 20.0-50.0Final Coding CBC Coding lymphocytes % 03/12/2025 00:00: 00:00:00IMMUNOFIXATION, SERUMife interpretation 8494-20-62J69:00:00NORMAL PATTERN.Final Coding IMMUNOFIXATION, SERUM Coding tori interpretation tori interpretation 02/03/2025 00:00: 00:00:00IMMUNOFIXATION + PROTEIN ELECTROPHORESIS + FREE LIGHT CHAINS, SERUMalpha 1 cyygexsg1145-27-88S30:00:000.3g/dl0.2-0.3Final Coding IMMUNOFIXATION + PROTEIN ISRAEL CTROPHORESIS + FREE LIGHT CHAINS, SERUM Coding alpha 1 globulin alpha 1 globulin 02/03/2025 00:00: 00:00:00URINALYSIS, UMQMFUKXmyp9615-92-66Q36:00:00 NEGATIVEFinal Coding URINALYSIS, COMPLETE Coding glu 02/03/2025 00:00: 00:00:00PT/OEQ3665-85-84C63:00:0012.9 Coding PT/INR Coding 03/12/2025 00:00: 00:00:00IMMUNOFIXATION + PROTEIN ELECTROPHORESIS + FREE LIGHT CHAINS, SERUMbeta 2 glnxuzxd5808-84-08M21:00:000.3g/dl0.2-0.5Final Coding IMMUNOFIXATION + PROTEIN ISRAEL CTROPHORESIS + FREE LIGHT CHAINS, SERUM Coding beta 2 globulin beta 2 globulin 02/03/2025 00:00: 00:00:00CMP, SERUM OR PLASMAanion gap 1408-01-28P02:00:006.0calcFinal Coding CMP, SERUM OR PLASMA Coding anion gap 03/12/2025 00:00: 00:00:00CBCgranulcytes %0985-68-44U58:00:0044.4% 30.0-70.0Final Coding CBC Coding granulcytes % 03/12/2025 00:00: 00:00:00URINALYSIS, VPFFRGWVczv9733-28-39O84:00:00 TRACE-INTACTabnormalFinal Coding URINALYSIS, COMPLETE Coding blo 02/03/2025 00:00: 00:00:00CMP, SERUM OR PLASMAalp phos 0291-66-23V34:00:0088.0u/l30.0-140.0normalFinal Coding CMP, SERUM OR PLASMA Coding alp phos 02/03/2025 00:00:00005/04/2025 00:00:00PATHOLOGY MRWKW3521-70-28P27:00:00 Coding PATHOLOGY STUDY Coding 05/04/2025 00:00: 00:00:00UNKNOWNperipheral blood smear review 6575-34-02L07:00:00Final Coding UNKNOWN Coding peripheral blood smear revie w peripheral blood smear revie w 02/03/2025 00:00: 00:00:00CMP, SERUM OR PLASMAcreatinine (serum) 1644-04-38X38:00:000.5mg/dl0.4-1.5Final Coding CMP, SERUM OR PLASMA Coding creatinine (serum) 03/12/2025 00:00: 00:00:00CBCmonocytes %6694-48-18S95:00:0011.2% 2.0-16.0Final Coding CBC Coding monocytes % 03/12/2025 00:00: 00:00:60YYGvpa8015-17-68H69:00:0013.4%11.5-14.5 Final Coding CBC Coding rdw 03/12/2025 00:00: 00:00:00CMP, SERUM OR PLASMAegfr calculated 9762-21-95P45:00:50014.7Final Coding CMP, SERUM OR PLASMA Coding egfr calculated 02/03/2025 00:00: 00:00:99AJYbfx8894-07-19N11:00:0040.5%37.0-47.0 Final Coding CBC Coding hct 03/12/2025 00:00: 00:00:00CMP, SERUM OR PLASMAtotal protein 9602-76-54F03:00:007.2g/dl6.0-8.5Final Coding CMP, SERUM OR PLASMA Coding total protein 02/03/2025 00:00: 00:00:00XR, SHOULDER, 2 OR MORE VIEW 8499-80-54M05:00:00 Coding XR, SHOULDER, 2 OR MORE VIEW Coding 01/31/2025 00:00: 00:00:00IMMUNOFIXATION + PROTEIN ELECTROPHORESIS + FREE LIGHT CHAINS, TYEJXscnxts1779-65-64E20:00:0082mg/go34-252bsvUmfqw Coding IMMUNOFIXATION + PROTEIN ISRAEL CTROPHORESIS + FREE LIGHT CHAINS, SERUM Coding lambda lambda 02/03/2025 00:00:00
== END 2025-06-07 04:22 | disposition home or self-care (01) ==
PROVIDERS: Emergency Provider Emergency Medicine; PCP Family Medicine
DX: R60.0 Localized edema (principal); R20.2 Paresthesia of skin; Z79.01 Long term (current) use of anticoagulants; Z85.830 Personal history of malignant neoplasm of bone
CPT/HCPCS: 70450; 72125; 80053; 81001; 82550; 83605; 83735; 83880; 85025; 85610; 85730; 86140; 93970; 99284; J9999

== ENCOUNTER 2025-06-14 08:30 | Oncology outpatient (recurring) (ONCR) | payer MEDICARE, SELFPAY ==
[2025-06-14 09:25] LABS: Hematocrit 33.8 % (36-47); Hemoglobin 11.10 g/dL (11.27-16.99); Mean Corpuscular HGB Conc 32.8 g/dL (30-55); Mean Corpuscular Hemoglobin 30.2 pg (27-33); Mean Corpuscular Volume 91.8 fl (85-98); Nucleated Red Blood Cells % 0 %; Platelet Count 281 10^3/cmm (157-399); Red Blood Count 3.68 10^6/uL (3.85-5.65); White Blood Count 2.78 10^3/uL (3.29-11.43)
[2025-06-14 09:47] LABS: Alanine Aminotransferase 11 U/L (0-33); Albumin Level 3.8 g/dL (3.5-5.2); Alkaline Phosphatase 113 U/L (35-105); Aspartate Amino Transferase 17 U/L (0-32); Blood Urea Nitrogen 7 mg/dL (8-23); Calcium 8.8 mg/dL (8.5-10.5); Carbon Dioxide 26 mmol/L (22-29); Chloride 101 mmol/L (98-107); Creatinine Clr Calc Pharmacy 78.2383; Globulin 2.5 g/dL (1.3-4.6); Glucose 96 mg/dL (65-115); Osmolality Calculated 282 mOsm/kg (285-295); Sodium 137 mmol/L (136-145); Total Protein 6.3 g/dL (6.6-8.7)
[2025-06-14 09:50] LABS: Anion Gap 14.6 (5-19); Potassium 4.6 mmol/L (3.5-5.1)
[2025-06-14] MEDS: bortezomib 3.5 mg SDV 2.8 MG SUBCUT (11:03)
[2025-06-14] MEDS: daratumumab-hyaluronidase-fihj 1,800 mg/15 mL SDV 1800 MG SUBCUT (11:04)
[2025-06-15 05:45] LABS: PROTEIN, TOTAL 6.0 g/dL (6.1-8.1)
[2025-06-16 09:15] LABS: ALPHA 1 GLOBULIN 0.4 g/dL (0.2-0.3); ALPHA 2 GLOBULIN 0.9 g/dL (0.5-0.9); BETA 1 GLOBULIN 0.4 g/dL (0.4-0.6); BETA 2 GLOBULIN 0.3 g/dL (0.2-0.5)
[2025-06-16 11:09] LABS: KAPPA LIGHT CHAIN, FREE, SERUM 8.8 mg/L (3.3-19.4); KAPPA/LAMBDA LIGHT CHAINS FREE 2.93 (0.26-1.65); LAMBDA LIGHT CHAIN, FREE, SERU 3.0 mg/L (5.7-26.3)
== END 2025-06-14 23:59 | disposition home or self-care (01) ==
PROVIDERS: Nurse Practitioner Family; PCP Family Medicine; Visit Provider Internal Medicine Medical Oncology
DX: Z51.11 Encounter for antineoplastic chemotherapy; C90.00 Multiple myeloma not having achieved remission; C79.51 Secondary malignant neoplasm of bone; I26.99 Other pulmonary embolism without acute cor pulmonale; Z79.899 Other long term (current) drug therapy; Z79.52 Long term (current) use of systemic steroids; Z53.9 Procedure and treatment not carried out, unspecified reason
CPT/HCPCS: 36415; 80053; 82784; 83883; 84155; 84165; 85025; 96402; 99213; 99214; J9041; J9144; J9999; Q0162

== ENCOUNTER 2025-06-21 09:30 | Oncology outpatient (recurring) (ONCR) | payer MEDICARE, SELFPAY ==
--- NOTE | 2025-06-16 15:01 | ONCRAD EPV_ITS ---
Radiation Oncology Established Patient Visit Patient: Mabel Carr [id number] : 1955 Age: 69 Sex: Female Dictated by: Familia Self Date of Service: 06/16/2025 Referring Physician(s) : Dr. Ryne Madison , DR. SOLIS Diagnosis: C79.51 - secondary malignant neoplasm of bone, Diagnosed 04/27/2025 (active) and C90.00 - multiple myeloma not having achieved remission, Diagnosed 03/18/2025 (active). MM DX 03/2025, KLC-MM, ORIF right humerus at [facility] 03/2025, PET/CT 03/19/2025 show right mid humeral shaft lytic lesion cysts 7 cm, left acromion lesion suspicious for malignancy 2.9 cm. STAGE: IIIA ICD-10: C90.00, C79.51 Radiotherapy to Date: Course: BiLat Shoulders, Treatment Site: Lt Shoulder, Ref. ID: [id number], Energy: 15X, Dose/Fx (cGy): 400, #Fx: 5 / 5, Dose Correction (cGy): 0, Total Dose Delivered (cGy): 2,000, Start Date: 05/06/2025, End Date: 05/12/2025, Elapsed Days: 6 Course: BiLat Shoulders, Treatment Site: Rt Humerus, Ref. 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 Patient received 2000 cGy in 5 fractions to the left shoulder and right humerus. She states she has no pain in the left chromium area and pain in the right humerus is down to a 2. She has significantly increased range of motion of the right shoulder girdle. She is now on weekly immunotherapy on Saturday and Saturday to consist of BORTUZMAB/ DARATUMUMAB / XGEVA Current Medications: apixaban (Eliquis) 5 mg PO BID dexamethasone 40 mg PO DAILY escitalopram oxalate 10 mg PO DAILY ivermectin 3 mg PO DAILY PRN lisinopril 5 mg PO DAILY ondansetron HCl 8 mg PO TID PRN oxycodone-acetaminophen 10-325 mg (Percocet) 1 tab PO Q8H PRN trazodone 150 mg PO BEDTIME Allergies: No known allergies. Current Complaints / Review of Systems: . Vital Signs: Performed on 06/16/2025 2:04 PM BMI - 39.239 kg/m2 (high), Height - 65 in, Weight - 235.8 lbs, Temperature - 97 f, Pulse - 62 /min, Respiration - 18 /min, O2 Sat - 96 %, Pain - 2, Fatigue - 0 and BP - 152/ 85 mm(hg)(high/). Physical Exam: General: Alert and oriented x 3. No acute distress. HEENT: Normocephalic, atraumatic. Extraocular Movements Intact: Pupils Equal, Round, Reactive to Light and Accommodation: Sclerae anicteric. Oral cavity is clear without lesions, masses or ulcers. NECK: Supple without supraclavicular or jugular lymphadenopathy. LUNGS: Clear to auscultation bilaterally without rales, rhonchi or wheeze. HEART: Regular rate and rhythm, normal S1 and S2 without murmur, gallop or rub. MUSCULOSKELETAL: No tenderness or percussion pain over the axial skeleton, scapulae or pelvis. Increased range of motion right shoulder. ABDOMEN: Soft, nontender, nondistended without masses or organomegaly. Bowel sounds are present. EXTREMITIES: No peripheral edema is identified. Limited motor and sensory examination are grossly intact and symmetric bilaterally. NEUROLOGIC: Cranial nerves II ???XII are grossly intact. Normal sensation, strength 5/5 in all extremities, normal gait, no ataxia. Performance Status: KPS 70 Lab: None pending. Pathology: Primary, c79.51 - secondary malignant neoplasm of bone, Diagnosed 04/27/2025 (active) and Primary, c90.00 - multiple myeloma not having achieved remission, Diagnosed 03/18/2025 (active) . Imaging: See HPI Impression: C79.51 - secondary malignant neoplasm of bone, Diagnosed 04/27/2025 (active) and C90.00 - multiple myeloma not having achieved remission, Diagnosed 03/18/2025 (active). MM DX 03/2025, KLC-MM, ORIF right humerus at [facility] 03/2025, PET/CT 03/19/2025 show right mid humeral shaft lytic lesion cysts 7 cm, left acromion lesion suspicious for malignancy 2.9 cm. STAGE: IIIA ICD-10: C90.00, C79.51 PLAN: Cont immunotherapy RTC in 3 months or sooner if need be. Home exercise therapy as tolerated. Signed by: 06/16/2025 3:00:28 PM <<Signature on File>> Time spent with patient: CPT Code: CPT Code:
[2025-06-17] MEDS: bortezomib 3.5 mg SDV 2.8 MG SUBCUT (12:55)
[2025-06-21 10:21] LABS: Hematocrit 35.7 % (36-47); Hemoglobin 11.90 g/dL (11.27-16.99); Mean Corpuscular HGB Conc 33.3 g/dL (30-55); Mean Corpuscular Hemoglobin 29.1 pg (27-33); Mean Corpuscular Volume 87.3 fl (85-98); Nucleated Red Blood Cells % 0 %; Platelet Count 137 10^3/cmm (157-399); Red Blood Count 4.09 10^6/uL (3.85-5.65); White Blood Count 4.59 10^3/uL (3.29-11.43)
[2025-06-21 10:32] LABS: Alanine Aminotransferase 10 U/L (0-33); Albumin Level 4.0 g/dL (3.5-5.2); Alkaline Phosphatase 111 U/L (35-105); Anion Gap 15.6 (5-19); Aspartate Amino Transferase 17 U/L (0-32); Blood Urea Nitrogen 10 mg/dL (8-23); Calcium 8.9 mg/dL (8.5-10.5); Carbon Dioxide 25 mmol/L (22-29); Chloride 99 mmol/L (98-107); Globulin 2.3 g/dL (1.3-4.6); Glucose 107 mg/dL (65-115); Osmolality Calculated 280 mOsm/kg (285-295); Potassium 4.6 mmol/L (3.5-5.1); Sodium 135 mmol/L (136-145); Total Protein 6.3 g/dL (6.6-8.7)
[2025-06-21] MEDS: bortezomib 3.5 mg SDV 2.8 MG SUBCUT (12:26)
[2025-06-21] MEDS: daratumumab-hyaluronidase-fihj 1,800 mg/15 mL SDV 1800 MG SUBCUT (12:27)
[2025-06-21 12:42] VITALS: BP 116/74; PULSE 65; RESP 17; TEMP 36.3; O2SAT 95
== END 2025-06-21 23:59 | disposition home or self-care (01) ==
PROVIDERS: Nurse Practitioner Family; PCP Family Medicine; Visit Provider Internal Medicine
DX: Z53.9 Procedure and treatment not carried out, unspecified reason; Z51.11 Encounter for antineoplastic chemotherapy; C90.00 Multiple myeloma not having achieved remission; C79.51 Secondary malignant neoplasm of bone
CPT/HCPCS: 80053; 85025; 96372; 96401; 99024; J9041; J9144; J9999; Q0162

== ENCOUNTER 2025-06-24 09:24 | Oncology outpatient (recurring) (ONCR) | payer MEDICARE, SELFPAY ==
[2025-06-24 10:20] LABS: Hematocrit 37.6 % (36-47); Hemoglobin 12.00 g/dL (11.27-16.99); Mean Corpuscular HGB Conc 31.9 g/dL (30-55); Mean Corpuscular Hemoglobin 28.9 pg (27-33); Mean Corpuscular Volume 90.6 fl (85-98); Nucleated Red Blood Cells % 0.4 %; Platelet Count 91 10^3/cmm (157-399); Red Blood Count 4.15 10^6/uL (3.85-5.65); White Blood Count 5.08 10^3/uL (3.29-11.43)
[2025-06-24 10:41] LABS: Alanine Aminotransferase 10 U/L (0-33); Albumin Level 3.8 g/dL (3.5-5.2); Alkaline Phosphatase 109 U/L (35-105); Anion Gap 15.6 (5-19); Aspartate Amino Transferase 13 U/L (0-32); Blood Urea Nitrogen 22 mg/dL (8-23); Calcium 9.3 mg/dL (8.5-10.5); Carbon Dioxide 22 mmol/L (22-29); Chloride 92 mmol/L (98-107); Creatinine Clr Calc Pharmacy 77.4995; Globulin 2.4 g/dL (1.3-4.6); Glucose 90 mg/dL (65-115); Osmolality Calculated 263 mOsm/kg (285-295); Potassium 4.6 mmol/L (3.5-5.1); Sodium 125 mmol/L (136-145); Total Protein 6.2 g/dL (6.6-8.7)
[2025-06-24] MEDS: denosumab 120 mg SDV SUBCUT (11:55)
[2025-06-24] MEDS: bortezomib 3.5 mg SDV 2.8 MG SUBCUT (12:07)
== END 2025-06-27 23:59 | disposition home or self-care (01) ==
PROVIDERS: Nurse Practitioner Family; PCP Family Medicine; Visit Provider Internal Medicine
DX: Z51.11 Encounter for antineoplastic chemotherapy (principal); C90.00 Multiple myeloma not having achieved remission; C79.51 Secondary malignant neoplasm of bone; I26.99 Other pulmonary embolism without acute cor pulmonale; G62.9 Polyneuropathy, unspecified; Z79.01 Long term (current) use of anticoagulants; Z79.899 Other long term (current) drug therapy; Z79.52 Long term (current) use of systemic steroids
CPT/HCPCS: 36415; 80053; 85025; 96372; 96401; 99213; J0897; J9041; Q0162

== ENCOUNTER 2025-07-01 08:04 | Oncology outpatient (recurring) (ONCR) | payer MEDICARE, SELFPAY ==
[2025-07-01 08:46] LABS: Hematocrit 35.9 % (36-47); Hemoglobin 11.70 g/dL (11.27-16.99); Mean Corpuscular HGB Conc 32.6 g/dL (30-55); Mean Corpuscular Hemoglobin 29.0 pg (27-33); Mean Corpuscular Volume 88.9 fl (85-98); Nucleated Red Blood Cells % 0 %; Platelet Count 157 10^3/cmm (157-399); Red Blood Count 4.04 10^6/uL (3.85-5.65); White Blood Count 4.45 10^3/uL (3.29-11.43)
[2025-07-01 09:02] LABS: Alanine Aminotransferase 23 U/L (0-33); Albumin Level 3.5 g/dL (3.5-5.2); Alkaline Phosphatase 115 U/L (35-105); Anion Gap 17.2 (5-19); Aspartate Amino Transferase 19 U/L (0-32); Blood Urea Nitrogen 29 mg/dL (8-23); Calcium 8.5 mg/dL (8.5-10.5); Carbon Dioxide 19 mmol/L (22-29); Chloride 98 mmol/L (98-107); Creatinine Clr Calc Pharmacy 75.4671; Globulin 2.2 g/dL (1.3-4.6); Glucose 94 mg/dL (65-115); Osmolality Calculated 276 mOsm/kg (285-295); Potassium 4.2 mmol/L (3.5-5.1); Sodium 130 mmol/L (136-145); Total Protein 5.7 g/dL (6.6-8.7)
[2025-07-01] MEDS: daratumumab-hyaluronidase-fihj 1,800 mg/15 mL SDV 1800 MG SUBCUT (11:30)
[2025-07-01 12:39] VITALS: BP 125/69; PULSE 69; RESP 17; TEMP 36.4; O2SAT 97
== END 2025-07-01 23:59 | disposition home or self-care (01) ==
PROVIDERS: Nurse Practitioner; PCP Family Medicine; Visit Provider Internal Medicine
DX: Z51.11 Encounter for antineoplastic chemotherapy (principal); C90.00 Multiple myeloma not having achieved remission; C79.51 Secondary malignant neoplasm of bone; I26.99 Other pulmonary embolism without acute cor pulmonale; E66.9 Obesity, unspecified; Z68.36 Body mass index [BMI] 36.0-36.9, adult; Z79.01 Long term (current) use of anticoagulants; Z92.3 Personal history of irradiation; Z79.52 Long term (current) use of systemic steroids; Z79.899 Other long term (current) drug therapy
CPT/HCPCS: 36415; 80053; 85025; 96401; 99214; J8540; J9144; J9999

== ENCOUNTER 2025-07-08 10:16 | Oncology outpatient (recurring) (ONCR) | payer MEDICARE, SELFPAY ==
[2025-07-08 10:57] LABS: Hematocrit 32.4 % (36-47); Hemoglobin 11.00 g/dL (11.27-16.99); Mean Corpuscular HGB Conc 34.0 g/dL (30-55); Mean Corpuscular Hemoglobin 29.6 pg (27-33); Mean Corpuscular Volume 87.3 fl (85-98); Nucleated Red Blood Cells % 0 %; Platelet Count 247 10^3/cmm (157-399); Red Blood Count 3.71 10^6/uL (3.85-5.65); White Blood Count 3.45 10^3/uL (3.29-11.43)
[2025-07-08 11:16] LABS: Alanine Aminotransferase 16 U/L (0-33); Albumin Level 3.4 g/dL (3.5-5.2); Alkaline Phosphatase 98 U/L (35-105); Anion Gap 13.4 (5-19); Aspartate Amino Transferase 20 U/L (0-32); Blood Urea Nitrogen 12 mg/dL (8-23); Calcium 8.1 mg/dL (8.5-10.5); Carbon Dioxide 23 mmol/L (22-29); Chloride 101 mmol/L (98-107); Globulin 2.2 g/dL (1.3-4.6); Glucose 154 mg/dL (65-115); Osmolality Calculated 279 mOsm/kg (285-295); Potassium 4.4 mmol/L (3.5-5.1); Sodium 133 mmol/L (136-145); Total Protein 5.6 g/dL (6.6-8.7)
[2025-07-08] MEDS: daratumumab-hyaluronidase-fihj 1,800 mg/15 mL SDV 1800 MG SUBCUT (12:47)
[2025-07-08 13:02] VITALS: BP 114/72; PULSE 70; RESP 17; TEMP 37; O2SAT 97
== END 2025-07-08 23:59 | disposition home or self-care (01) ==
PROVIDERS: Nurse Practitioner; PCP Family Medicine; Visit Provider Internal Medicine
DX: Z51.11 Encounter for antineoplastic chemotherapy (principal); C90.00 Multiple myeloma not having achieved remission; C79.51 Secondary malignant neoplasm of bone; I26.99 Other pulmonary embolism without acute cor pulmonale; D72.819 Decreased white blood cell count, unspecified; D69.6 Thrombocytopenia, unspecified; R29.898 Other symptoms and signs involving the musculoskeletal system; Z79.52 Long term (current) use of systemic steroids; Z79.01 Long term (current) use of anticoagulants; Z79.899 Other long term (current) drug therapy
CPT/HCPCS: 80053; 85025; 96401; 99214; J9144; J9999

== ENCOUNTER 2025-07-15 09:37 | Oncology outpatient (recurring) (ONCR) | payer MEDICARE, SELFPAY ==
[2025-07-15 11:38] LABS: Hematocrit 34.9 % (36-47); Hemoglobin 11.60 g/dL (11.27-16.99); Mean Corpuscular HGB Conc 33.2 g/dL (30-55); Mean Corpuscular Hemoglobin 29.2 pg (27-33); Mean Corpuscular Volume 87.9 fl (85-98); Nucleated Red Blood Cells % 0 %; Platelet Count 198 10^3/cmm (157-399); Red Blood Count 3.97 10^6/uL (3.85-5.65); White Blood Count 4.30 10^3/uL (3.29-11.43)
[2025-07-15 11:59] LABS: Alanine Aminotransferase 15 U/L (0-33); Albumin Level 3.5 g/dL (3.5-5.2); Alkaline Phosphatase 103 U/L (35-105); Anion Gap 15.3 (5-19); Aspartate Amino Transferase 14 U/L (0-32); Blood Urea Nitrogen 10 mg/dL (8-23); Calcium 8.4 mg/dL (8.5-10.5); Carbon Dioxide 23 mmol/L (22-29); Chloride 103 mmol/L (98-107); Globulin 2.3 g/dL (1.3-4.6); Glucose 140 mg/dL (65-115); Osmolality Calculated 285 mOsm/kg (285-295); Potassium 4.3 mmol/L (3.5-5.1); Sodium 137 mmol/L (136-145); Total Protein 5.8 g/dL (6.6-8.7)
[2025-07-15] MEDS: daratumumab-hyaluronidase-fihj 1,800 mg/15 mL SDV 1800 MG SUBCUT (12:45)
== END 2025-07-15 23:59 | disposition home or self-care (01) ==
PROVIDERS: Nurse Practitioner; PCP Family Medicine; Visit Provider Internal Medicine
DX: Z51.11 Encounter for antineoplastic chemotherapy (principal); C90.00 Multiple myeloma not having achieved remission; C79.51 Secondary malignant neoplasm of bone; I26.99 Other pulmonary embolism without acute cor pulmonale; R29.898 Other symptoms and signs involving the musculoskeletal system; Z79.899 Other long term (current) drug therapy; Z79.01 Long term (current) use of anticoagulants; Z92.3 Personal history of irradiation; Z79.52 Long term (current) use of systemic steroids
CPT/HCPCS: 36415; 80053; 85025; 96401; 99214; J9144; J9999

== ENCOUNTER 2025-07-22 08:24 | Oncology outpatient (recurring) (ONCR) | payer MEDICARE, SELFPAY ==
[2025-07-22 10:29] LABS: Alanine Aminotransferase 14 U/L (0-33); Albumin Level 3.4 g/dL (3.5-5.2); Alkaline Phosphatase 95 U/L (35-105); Anion Gap 15.8 (5-19); Aspartate Amino Transferase 16 U/L (0-32); Blood Urea Nitrogen 11 mg/dL (8-23); Calcium 8.3 mg/dL (8.5-10.5); Carbon Dioxide 24 mmol/L (22-29); Chloride 97 mmol/L (98-107); Creatinine Clr Calc Pharmacy 76.0214; Globulin 2.2 g/dL (1.3-4.6); Glucose 131 mg/dL (65-115); Osmolality Calculated 277 mOsm/kg (285-295); Potassium 3.8 mmol/L (3.5-5.1); Sodium 133 mmol/L (136-145); Total Protein 5.6 g/dL (6.6-8.7)
[2025-07-22 11:02] LABS: Hematocrit 35.4 % (36-47); Hemoglobin 11.80 g/dL (11.27-16.99); Mean Corpuscular HGB Conc 33.3 g/dL (30-55); Mean Corpuscular Hemoglobin 29.3 pg (27-33); Mean Corpuscular Volume 87.8 fl (85-98); Nucleated Red Blood Cells % 0 %; Platelet Count 197 10^3/cmm (157-399); Red Blood Count 4.03 10^6/uL (3.85-5.65); White Blood Count 4.46 10^3/uL (3.29-11.43)
[2025-07-22] MEDS: denosumab 120 mg SDV (Infusion Clinic Only) SUBCUT (12:09)
[2025-07-22] MEDS: daratumumab-hyaluronidase-fihj 1,800 mg/15 mL SDV 1800 MG SUBCUT (12:26)
== END 2025-07-22 23:59 | disposition home or self-care (01) ==
PROVIDERS: Visit Provider Internal Medicine
DX: Z51.11 Encounter for antineoplastic chemotherapy (principal); C90.00 Multiple myeloma not having achieved remission; C79.51 Secondary malignant neoplasm of bone; I26.99 Other pulmonary embolism without acute cor pulmonale; R03.0 Elevated blood-pressure reading, without diagnosis of hypertension; R29.898 Other symptoms and signs involving the musculoskeletal system; G62.9 Polyneuropathy, unspecified; E83.51 Hypocalcemia; K59.00 Constipation, unspecified; Z79.01 Long term (current) use of anticoagulants; Z79.899 Other long term (current) drug therapy; Z79.52 Long term (current) use of systemic steroids
CPT/HCPCS: 80053; 82784; 85025; 96372; 96401; 99214; J0897; J9144; J9999

== ENCOUNTER 2025-07-28 05:00 | Outpatient (RCR) | payer MEDICARE, SELFPAY | END 2025-08-27 23:59 | disposition home or self-care (01) | LOC: SPT 05:00 | PROVIDERS: Visit Provider Nurse Practitioner | DX: R26.89 Other abnormalities of gait and mobility (principal) | CPT/HCPCS: 97161 ==

== ENCOUNTER 2025-07-29 12:10 | Oncology outpatient (recurring) (ONCR) | payer MEDICARE, SELFPAY ==
[2025-07-29 12:33] LABS: Hematocrit 38.3 % (36-47); Hemoglobin 12.70 g/dL (11.27-16.99); Mean Corpuscular HGB Conc 33.2 g/dL (30-55); Mean Corpuscular Hemoglobin 29.6 pg (27-33); Mean Corpuscular Volume 89.3 fl (85-98); Nucleated Red Blood Cells % 0 %; Platelet Count 270 10^3/cmm (157-399); Red Blood Count 4.29 10^6/uL (3.85-5.65); White Blood Count 4.09 10^3/uL (3.29-11.43)
[2025-07-29 12:52] LABS: Alanine Aminotransferase 13 U/L (0-33); Albumin Level 3.8 g/dL (3.5-5.2); Alkaline Phosphatase 105 U/L (35-105); Anion Gap 17.4 (5-19); Aspartate Amino Transferase 15 U/L (0-32); Blood Urea Nitrogen 12 mg/dL (8-23); Calcium 8.6 mg/dL (8.5-10.5); Carbon Dioxide 23 mmol/L (22-29); Chloride 100 mmol/L (98-107); Creatinine Clr Calc Pharmacy 75.4671; Globulin 2.3 g/dL (1.3-4.6); Glucose 159 mg/dL (65-115); Osmolality Calculated 285 mOsm/kg (285-295); Potassium 4.4 mmol/L (3.5-5.1); Sodium 136 mmol/L (136-145); Total Protein 6.1 g/dL (6.6-8.7)
[2025-07-29] MEDS: daratumumab-hyaluronidase-fihj 1,800 mg/15 mL SDV 1800 MG SUBCUT (15:27)
[2025-07-30 05:15] LABS: PROTEIN, TOTAL 5.6 g/dL (6.1-8.1)
[2025-07-30 16:00] LABS: KAPPA LIGHT CHAIN, FREE, SERUM 4.6 mg/L (3.3-19.4); KAPPA/LAMBDA LIGHT CHAINS FREE 1.39 (0.26-1.65); LAMBDA LIGHT CHAIN, FREE, SERU 3.3 mg/L (5.7-26.3)
[2025-07-30 19:24] LABS: ALPHA 1 GLOBULIN 0.3 g/dL (0.2-0.3); ALPHA 2 GLOBULIN 0.7 g/dL (0.5-0.9); BETA 1 GLOBULIN 0.4 g/dL (0.4-0.6); BETA 2 GLOBULIN 0.3 g/dL (0.2-0.5)
== END 2025-07-29 23:59 | disposition home or self-care (01) ==
PROVIDERS: Internal Medicine; Visit Provider Nurse Practitioner Family
DX: Z51.12 Encounter for antineoplastic immunotherapy (principal); C90.00 Multiple myeloma not having achieved remission; C79.51 Secondary malignant neoplasm of bone; I26.99 Other pulmonary embolism without acute cor pulmonale; R29.898 Other symptoms and signs involving the musculoskeletal system; R03.0 Elevated blood-pressure reading, without diagnosis of hypertension; E83.51 Hypocalcemia; R12 Heartburn; G89.3 Neoplasm related pain (acute) (chronic); Z79.899 Other long term (current) drug therapy; Z79.52 Long term (current) use of systemic steroids; Z79.01 Long term (current) use of anticoagulants; Z92.3 Personal history of irradiation
CPT/HCPCS: 36415; 80053; 82784; 83883; 84155; 84165; 85025; 96401; 99215; J9144; J9999

== ENCOUNTER 2025-08-12 08:45 | Oncology outpatient (recurring) (ONCR) | payer MEDICARE, SELFPAY ==
[2025-08-05 11:43] LABS: Hematocrit 37.8 % (36-47); Hemoglobin 12.80 g/dL (11.27-16.99); Mean Corpuscular HGB Conc 33.9 g/dL (30-55); Mean Corpuscular Hemoglobin 30.1 pg (27-33); Mean Corpuscular Volume 88.9 fl (85-98); Nucleated Red Blood Cells % 0 %; Platelet Count 253 10^3/cmm (157-399); Red Blood Count 4.25 10^6/uL (3.85-5.65); White Blood Count 5.62 10^3/uL (3.29-11.43)
[2025-08-05 11:56] LABS: Alanine Aminotransferase 11 U/L (0-33); Albumin Level 3.8 g/dL (3.5-5.2); Alkaline Phosphatase 84 U/L (35-105); Blood Urea Nitrogen 11 mg/dL (8-23); Calcium 8.6 mg/dL (8.5-10.5); Carbon Dioxide 25 mmol/L (22-29); Chloride 99 mmol/L (98-107); Globulin 2.2 g/dL (1.3-4.6); Glucose 105 mg/dL (65-115); Osmolality Calculated 282 mOsm/kg (285-295); Sodium 136 mmol/L (136-145); Total Protein 6.0 g/dL (6.6-8.7)
[2025-08-05 12:00] LABS: Anion Gap 16.5 (5-19); Aspartate Amino Transferase 17 U/L (0-32); Potassium 4.5 mmol/L (3.5-5.1)
[2025-08-12 10:31] LABS: Hematocrit 37.7 % (36-47); Hemoglobin 12.30 g/dL (11.27-16.99); Mean Corpuscular HGB Conc 32.6 g/dL (30-55); Mean Corpuscular Hemoglobin 30.3 pg (27-33); Mean Corpuscular Volume 92.9 fl (85-98); Nucleated Red Blood Cells % 0 %; Platelet Count 197 10^3/cmm (157-399); Red Blood Count 4.06 10^6/uL (3.85-5.65); White Blood Count 6.80 10^3/uL (3.29-11.43)
[2025-08-12 10:36] LABS: Alanine Aminotransferase 8 U/L (0-33); Albumin Level 3.6 g/dL (3.5-5.2); Alkaline Phosphatase 78 U/L (35-105); Anion Gap 17.0 (5-19); Aspartate Amino Transferase 15 U/L (0-32); Blood Urea Nitrogen 8 mg/dL (8-23); Calcium 8.3 mg/dL (8.5-10.5); Carbon Dioxide 24 mmol/L (22-29); Chloride 103 mmol/L (98-107); Creatinine Clr Calc Pharmacy 75.4671; Globulin 2.0 g/dL (1.3-4.6); Glucose 121 mg/dL (65-115); Osmolality Calculated 290 mOsm/kg (285-295); Potassium 4.0 mmol/L (3.5-5.1); Sodium 140 mmol/L (136-145); Total Protein 5.6 g/dL (6.6-8.7)
[2025-08-12] MEDS: daratumumab-hyaluronidase-fihj 1,800 mg/15 mL SDV 1800 MG SUBCUT (12:39)
[2025-08-13 08:30] LABS: PROTEIN, TOTAL 5.2 g/dL (6.1-8.1)
[2025-08-13 13:04] LABS: KAPPA LIGHT CHAIN, FREE, SERUM 5.9 mg/L (3.3-19.4); KAPPA/LAMBDA LIGHT CHAINS FREE 1.97 (0.26-1.65); LAMBDA LIGHT CHAIN, FREE, SERU 3.0 mg/L (5.7-26.3)
[2025-08-13 17:34] LABS: ALPHA 1 GLOBULIN 0.3 g/dL (0.2-0.3); ALPHA 2 GLOBULIN 0.6 g/dL (0.5-0.9); BETA 1 GLOBULIN 0.4 g/dL (0.4-0.6); BETA 2 GLOBULIN 0.3 g/dL (0.2-0.5)
== END 2025-08-12 23:59 | disposition home or self-care (01) ==
PROVIDERS: Nurse Practitioner Family; Visit Provider Nurse Practitioner
DX: Z51.12 Encounter for antineoplastic immunotherapy (principal); C90.00 Multiple myeloma not having achieved remission; C79.51 Secondary malignant neoplasm of bone; I26.99 Other pulmonary embolism without acute cor pulmonale; R29.898 Other symptoms and signs involving the musculoskeletal system; R03.0 Elevated blood-pressure reading, without diagnosis of hypertension; G89.3 Neoplasm related pain (acute) (chronic); E83.51 Hypocalcemia; R12 Heartburn; Z79.01 Long term (current) use of anticoagulants; Z79.899 Other long term (current) drug therapy; Z92.3 Personal history of irradiation; Z79.52 Long term (current) use of systemic steroids; Z53.9 Procedure and treatment not carried out, unspecified reason
CPT/HCPCS: 36415; 80053; 82784; 83883; 84155; 84165; 85025; 96401; 99214; J9144; J9999

== ENCOUNTER 2025-08-26 10:45 | Oncology outpatient (recurring) (ONCR) | payer MEDICARE, SELFPAY ==
[2025-08-19 10:46] LABS: Hematocrit 38.3 % (36-47); Hemoglobin 12.60 g/dL (11.27-16.99); Mean Corpuscular HGB Conc 32.9 g/dL (30-55); Mean Corpuscular Hemoglobin 30.6 pg (27-33); Mean Corpuscular Volume 93.0 fl (85-98); Nucleated Red Blood Cells % 0 %; Platelet Count 206 10^3/cmm (157-399); Red Blood Count 4.12 10^6/uL (3.85-5.65); White Blood Count 5.75 10^3/uL (3.29-11.43)
[2025-08-19 11:15] LABS: Alanine Aminotransferase 15 U/L (0-33); Albumin Level 3.9 g/dL (3.5-5.2); Alkaline Phosphatase 76 U/L (35-105); Anion Gap 15.3 (5-19); Aspartate Amino Transferase 16 U/L (0-32); Blood Urea Nitrogen 9 mg/dL (8-23); Calcium 8.1 mg/dL (8.5-10.5); Carbon Dioxide 25 mmol/L (22-29); Chloride 101 mmol/L (98-107); Globulin 2.0 g/dL (1.3-4.6); Glucose 97 mg/dL (65-115); Osmolality Calculated 283 mOsm/kg (285-295); Potassium 4.3 mmol/L (3.5-5.1); Sodium 137 mmol/L (136-145); Total Protein 5.9 g/dL (6.6-8.7)
[2025-08-19] MEDS: denosumab 120 mg SDV (Infusion Clinic Only) SUBCUT (12:06)
[2025-08-26 11:15] LABS: Hematocrit 37.3 % (36-47); Hemoglobin 12.50 g/dL (11.27-16.99); Mean Corpuscular HGB Conc 33.5 g/dL (30-55); Mean Corpuscular Hemoglobin 31.5 pg (27-33); Mean Corpuscular Volume 94.0 fl (85-98); Nucleated Red Blood Cells % 0 %; Platelet Count 259 10^3/cmm (157-399); Red Blood Count 3.97 10^6/uL (3.85-5.65); White Blood Count 4.61 10^3/uL (3.29-11.43)
[2025-08-26 11:24] LABS: Alanine Aminotransferase 9 U/L (0-33); Albumin Level 3.9 g/dL (3.5-5.2); Alkaline Phosphatase 81 U/L (35-105); Blood Urea Nitrogen 6 mg/dL (8-23); Calcium 8.6 mg/dL (8.5-10.5); Carbon Dioxide 24 mmol/L (22-29); Chloride 102 mmol/L (98-107); Creatinine Clr Calc Pharmacy 74.9132; Globulin 2.0 g/dL (1.3-4.6); Glucose 109 mg/dL (65-115); Osmolality Calculated 286 mOsm/kg (285-295); Sodium 139 mmol/L (136-145); Total Protein 5.9 g/dL (6.6-8.7)
[2025-08-26 11:27] LABS: Anion Gap 17.1 (5-19); Aspartate Amino Transferase 19 U/L (0-32); Potassium 4.1 mmol/L (3.5-5.1)
[2025-08-26] MEDS: daratumumab-hyaluronidase-fihj 1,800 mg/15 mL SDV 1800 MG SUBCUT (13:01)
[2025-08-27 07:09] LABS: PROTEIN, TOTAL 5.6 g/dL (6.1-8.1)
[2025-08-27 13:50] LABS: KAPPA LIGHT CHAIN, FREE, SERUM 3.6 mg/L (3.3-19.4); KAPPA/LAMBDA LIGHT CHAINS FREE 1.44 (0.26-1.65); LAMBDA LIGHT CHAIN, FREE, SERU 2.5 mg/L (5.7-26.3)
[2025-08-27 15:10] LABS: ALPHA 1 GLOBULIN 0.3 g/dL (0.2-0.3); ALPHA 2 GLOBULIN 0.7 g/dL (0.5-0.9); BETA 1 GLOBULIN 0.4 g/dL (0.4-0.6); BETA 2 GLOBULIN 0.3 g/dL (0.2-0.5)
== END 2025-08-26 23:59 | disposition home or self-care (01) ==
PROVIDERS: Visit Provider Nurse Practitioner
DX: C90.00 Multiple myeloma not having achieved remission; C79.51 Secondary malignant neoplasm of bone; I26.99 Other pulmonary embolism without acute cor pulmonale; G62.9 Polyneuropathy, unspecified; E66.9 Obesity, unspecified; Z68.36 Body mass index [BMI] 36.0-36.9, adult; Z79.01 Long term (current) use of anticoagulants; Z79.52 Long term (current) use of systemic steroids; Z79.899 Other long term (current) drug therapy; Z92.3 Personal history of irradiation; Z53.9 Procedure and treatment not carried out, unspecified reason
CPT/HCPCS: 36415; 80053; 82784; 83883; 84155; 84165; 85025; 96372; 96401; 99213; J0897; J9144; J9999

== ENCOUNTER 2025-08-28 06:30 | Outpatient (RCR) | payer MEDICARE, SELFPAY | END 2025-09-26 23:59 | disposition home or self-care (01) | LOC: SPT 06:30 | PROVIDERS: Visit Provider Nurse Practitioner | DX: R26.89 Other abnormalities of gait and mobility (principal); M62.81 Muscle weakness (generalized) | CPT/HCPCS: 97110; 97161 ==

== ENCOUNTER 2025-09-09 12:43 | Oncology outpatient (recurring) (ONCR) | payer MEDICARE, SELFPAY ==
--- NOTE | 2025-09-09 15:01 | ONCRAD EPV_ITS ---
Radiation Oncology Established Patient Visit Patient: Lilly Monroe [id number] : 1955 Age: 69 Sex: Female Dictated by: Familia Self Date of Service: 09/09/2025 Referring Physician(s) : Dr. Ryne Madison Diagnosis: C79.51 - Secondary malignant neoplasm of bone, Diagnosed 04/27/2025 (Active) C90.00 - Multiple myeloma not having achieved remission, Diagnosed 03/18/2025 (Active) Radiotherapy to Date: Course: BiLat Shoulders, Treatment Site: Lt Shoulder, Ref. ID: [id number], Energy: 15X, Dose/Fx (cGy): 400, #Fx: 5 / 5, Dose Correction (cGy): 0, Total Dose Delivered (cGy): 2,000, Start Date: 05/06/2025, End Date: 05/12/2025, Elapsed Days: 6 Course: BiLat Shoulders, Treatment Site: Rt Humerus, Ref. 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 She denies any pain at the present time but does have neuropathy type pain which she describes as an 8 out of 10. She has also started physical therapy to the right arm recently. She did have uptake in the right proximal femur so we will would like to reevaluate with PET/CT to possibly treat that area. Current Medications: apixaban (Eliquis) 5 mg PO BID benzonatate 100 mg PO TID PRN diphenhydramine HCl (Benadryl) 25 mg PO TID PRN escitalopram oxalate 10 mg PO DAILY fluconazole 100 mg PO DAILY fluticasone propionate 50 mcg/actuation 2 sprays intranasal BID gabapentin 300 mg PO TID ivermectin 3 mg PO DAILY PRN lenalidomide 15 mg PO DAILY lisinopril 20 mg PO DAILY Held on 06/01/25. Instructions: Resume on 06/15/25. ondansetron HCl 4 mg PO Q6H PRN oxycodone- acetaminophen 10-325 mg (Percocet) 1 tab PO Q8H PRN potassium chloride ER (Klor-Con M) 20 mEq PO DAILY prochlorperazine maleate (Compazine) 10 mg PO Q4H PRN sulfamethoxazole- trimethoprim 800-160 mg (Bactrim DS) Take 1 tablet by mouth on Saturday, Saturday, and Saturday. trazodone 150 mg PO BEDTIME valacyclovir mg Allergies: No Known Drug Allergies Allergy Current Complaints / Review of Systems: . As above Vital Signs: Performed on 09/09/2025 1:07 PM BMI - 36.277 kg/m2 (high), Height - 65 in, Weight - 218 lbs, Temperature - 98.3 f, Pulse - 96 /min, Respiration - 17 /min, O2 Sat - 98 %, Pain - 8, Fatigue - 0 and BP - 128/ 77 mm(hg). Physical Exam: General: Alert and oriented x 3. No acute distress. HEENT: Normocephalic, atraumatic. Extraocular Movements Intact: Pupils Equal, Round, Reactive to Light and Accommodation: Sclerae anicteric. Oral cavity is clear without lesions, masses or ulcers. NECK: Supple without supraclavicular or jugular lymphadenopathy. LUNGS: Clear to auscultation bilaterally without rales, rhonchi or wheeze. HEART: Regular rate and rhythm, normal S1 and S2 without murmur, gallop or rub. MUSCULOSKELETAL: No tenderness or percussion pain over the axial skeleton, scapulae or pelvis. Decreased range of motion in the upper extremities. Patient walks with a walker with no pain in the hips at the present time ABDOMEN: Soft, nontender, nondistended without masses or organomegaly. Bowell sounds are present. EXTREMITIES: No peripheral edema is identified. Limited motor and sensory examination are grossly intact and symmetric bilaterally. NEUROLOGIC: Cranial nerves II ???XII are grossly intact. Normal sensation, strength 5/5 in all extremities, normal gait, no ataxia. Performance Status: KPS 90 Lab: None pending. Pathology: Primary, c79.51 - secondary malignant neoplasm of bone, Diagnosed 04/27/2025 (active) and Primary, c90.00 - multiple myeloma not having achieved remission, Diagnosed 03/18/2025 (active) . Imaging: See HPI Impression: MM without remission PET uptake in the right proximal femur-consider reevaluation PLAN: Schedule PET/CT head as soon as available. Evaluate right proximal femur RTC 1 week after PET/CT is been scheduled and completed Signed by: 09/09/2025 2:59:28 PM <<Signature on File>> Time spent with patient: Global fee 20 minutes CPT Code: CPT Code:
[2025-09-09] MEDS: daratumumab-hyaluronidase-fihj 1,800 mg/15 mL SDV 1800 MG SUBCUT (15:15)
== END 2025-09-09 23:59 | disposition home or self-care (01) ==
PROVIDERS: Visit Provider Radiology Radiation Oncology
DX: Z51.12 Encounter for antineoplastic immunotherapy (principal); C90.00 Multiple myeloma not having achieved remission; C79.51 Secondary malignant neoplasm of bone; I26.99 Other pulmonary embolism without acute cor pulmonale; R03.0 Elevated blood-pressure reading, without diagnosis of hypertension; G62.9 Polyneuropathy, unspecified; E66.9 Obesity, unspecified; Z68.36 Body mass index [BMI] 36.0-36.9, adult; Z79.01 Long term (current) use of anticoagulants; Z79.52 Long term (current) use of systemic steroids; Z79.899 Other long term (current) drug therapy; Z92.3 Personal history of irradiation
CPT/HCPCS: 96402; 99214; J9144; J9999

== ENCOUNTER 2025-09-22 13:30 | Oncology outpatient (recurring) (ONCR) | payer MEDICARE, SELFPAY ==
[2025-09-16 14:12] LABS: Hematocrit 38.7 % (36-47); Hemoglobin 12.90 g/dL (11.27-16.99); Mean Corpuscular HGB Conc 33.3 g/dL (30-55); Mean Corpuscular Hemoglobin 31.9 pg (27-33); Mean Corpuscular Volume 95.8 fl (85-98); Nucleated Red Blood Cells % 0 %; Platelet Count 220 10^3/cmm (157-399); Red Blood Count 4.04 10^6/uL (3.85-5.65); White Blood Count 6.11 10^3/uL (3.29-11.43)
[2025-09-16 15:40] LABS: Alanine Aminotransferase 15 U/L (0-33); Albumin Level 3.7 g/dL (3.5-5.2); Alkaline Phosphatase 70 U/L (35-105); Anion Gap 16.9 (5-19); Aspartate Amino Transferase 19 U/L (0-32); Blood Urea Nitrogen 10 mg/dL (8-23); Calcium 8.9 mg/dL (8.5-10.5); Carbon Dioxide 23 mmol/L (22-29); Chloride 102 mmol/L (98-107); Globulin 2.1 g/dL (1.3-4.6); Glucose 129 mg/dL (65-115); Osmolality Calculated 287 mOsm/kg (285-295); Potassium 3.9 mmol/L (3.5-5.1); Sodium 138 mmol/L (136-145); Total Protein 5.8 g/dL (6.6-8.7)
--- NOTE | 2025-09-17 10:30 | PETR_ITS ---
PROCEDURE INFORMATION: Exam: PET/CT Whole Body Exam date and time: 09/17/2025 10:38 AM Age: 69 years old Clinical indication: Condition or disease; Primary cancer: Multiple myeloma LABS AND CLINICAL REPORTS: Glucose: 112 mg/dl Treatment strategy for malignancy (PET staging): Restaging (PS) TECHNIQUE: Imaging protocol: Following at least four-hour fasting and following the injection of radiopharmaceutical, low dose CT images were obtained. Then, PET images were obtained. Attenuation corrected images were constructed using the CT scan. Fused images of PET and CT were reviewed. The standardized uptake values (SUV) reported below are maximum values within a region of interest, expressed in gm/ml. Exam includes the whole body. SUV normalization method: BodyWeight Radiopharmaceutical: 11 mCi F-18 FDG (Fluorodeoxyglucose), IV. Time of imaging post radiopharmaceutical administration: 47 minutes Injection site: left hand COMPARISON: PT PET WB melanoma INITIAL [id number] 03/19/2025 8:59 AM FINDINGS: Brain: Visualized brain has normal physiologic uptake. Pharynx: No abnormal uptake. Larynx: No abnormal uptake. Lungs, pleura and trachea: No abnormal uptake. Scattered calcified granulomas. Heart: Normal physiologic uptake. Mediastinal space: No abnormal uptake. Liver: No abnormal uptake. Gallbladder and biliary ducts: No abnormal uptake. Cholelithiasis. Pancreas: No abnormal uptake. Spleen: No abnormal uptake. The spleen demonstrates punctate calcifications, consistent with remote granulomatous organism exposure. Adrenal glands: No abnormal uptake. Kidneys and ureters: Normal physiologic uptake. Stomach and bowel: No abnormal uptake. Postsurgical changes of the rectosigmoid junction. Vasculature: No abnormal uptake. Lymph nodes: No abnormal uptake. No lymphadenopathy in the head, neck, chest, abdomen, pelvis, and extremities. Hilar and mediastinal calcified lymph nodes, suggestive of prior granulomatous organism exposure. Skeleton: Interval intramedullary nail and screw fixation of the right humerus. Previously noted FDG avid mid right humeral lesion no longer demonstrates FDG uptake. Expansile left acromial lesion again noted, with decreased internal FDG uptake, maximum SUV 3.0, previously 3.9. Soft tissues: No abnormal uptake in the visualized head, neck, chest, abdomen, pelvis, and extremities. METRICS: Mediastinal blood pool: Mean SUV of 2.3 Liver uptake: Mean SUV of 3.2 PET/PET WB melanoma SUBSEQ [id number] IMPRESSION: 1. Interval fixation of the right humerus. Previously noted FDG avid humeral lesion has resolved. 2. Lytic mildly expansile left acromial lesion decreased in FDG uptake. Overall positive treatment response.
--- NOTE | 2025-09-22 11:43 | ONCRAD EPV_ITS ---
Radiation Oncology Established Patient Visit Patient: Lilly Monroe [id number] : 1955> Age: 70> Sex: Female> Dictated by: Familia Self Date of Service: 09/22/2025 Referring Physician(s) : Dr Ryne Madison Diagnosis: C79.51 - Secondary malignant neoplasm of bone, Diagnosed 04/27/2025 (Active) C90.00 - Multiple myeloma not having achieved remission, Diagnosed 03/18/2025 (Active) Radiotherapy to Date: Course: BiLat Shoulders, Treatment Site: Lt Shoulder, Ref. ID: [id number], Energy: 15X, Dose/Fx (cGy): 400, #Fx: 5 / 5, Dose Correction (cGy): 0, Total Dose Delivered (cGy): 2,000, Start Date: 05/06/2025, End Date: 05/12/2025, Elapsed Days: 6 Course: BiLat Shoulders, Treatment Site: Rt Humerus, Ref. 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 She recently underwent a PET CT to see the response. Her left shoulder and right humerus areas have significantly resolved. The left shoulder shows decreased uptake while the right humerus shows no avid uptake. Her hip uptake previously has not been identified in this present scan. Patient is undergoing physical therapy for both upper extremities. She also is having lower extremity strengthening exercise program. She will [place] for the first time again on September 26 [place] 10 [place] her 's family grew up in and staying at. Current Medications: apixaban (Eliquis) 5 mg PO BID benzonatate 100 mg PO TID PRN cholecalciferol (vitamin D3) 50,000 units orally weekly; dexamethasone 20 mg PO DAILY diphenhydramine HCl (Benadryl) 25 mg PO TID PRN escitalopram oxalate 10 mg PO DAILY fluconazole 100 mg PO DAILY fluticasone propionate 50 mcg/actuation 2 sprays intranasal BID gabapentin 300 mg orally 1 cap a.m.; 2 caps mid-day; 2 caps p.m.; 30 days MDD 1500 mg ivermectin 3 mg PO DAILY PRN lisinopril 5 mg PO DAILY ondansetron HCl 4 mg PO Q6H PRN oxycodone-acetaminophen 10-325 mg (Percocet) 1 tab PO Q8H PRN potassium chloride ER (Klor-Con M) 20 mEq PO DAILY prochlorperazine maleate (Compazine) 10 mg PO Q4H PRN sulfamethoxazole-trimethoprim 800-160 mg (Bactrim DS) Take 1 tablet by mouth on Saturday, Saturday, and Saturday. trazodone 150 mg PO BEDTIME valacyclovir mg PO Allergies: NKA Current Complaints / Review of Systems: . Vital Signs: Performed on 09/22/2025 11:20 AM BMI - 35.978 kg/m2 (high), Height - 65 in, Weight - 216.2 lbs, Temperature - 95.8 f, Pulse - 79 /min, Respiration - 18 /min, O2 Sat - 95 % (low), Pain - 5, Fatigue - 0 and BP - 118/ 65 mm(hg). Physical Exam: Patient walking with rollator General: Alert and oriented x 3. No acute distress. HEENT: Normocephalic, atraumatic. Extraocular Movements Intact: Pupils Equal, Round, Reactive to Light and Accommodation: Sclerae anicteric. Oral cavity is clear without lesions, masses or ulcers. NECK: Supple without supraclavicular or jugular lymphadenopathy. LUNGS: Clear to auscultation bilaterally without rales, rhonchi or wheeze. HEART: Regular rate and rhythm, normal S1 and S2 without murmur, gallop or rub. MUSCULOSKELETAL: No tenderness or percussion pain over the axial skeleton, scapulae or pelvis. Decreased range of motion of upper extremity improving. ABDOMEN: Soft, nontender, nondistended without masses or organomegaly. Bowell sounds are present. EXTREMITIES: No peripheral edema is identified. Limited motor and sensory examination are grossly intact and symmetric bilaterally. NEUROLOGIC: Cranial nerves II ???XII are grossly intact. Normal sensation, strength 5/5 in all extremities, normal gait, no ataxia. Performance Status: KPS 80 Lab: None pending. Pathology: Primary, c79.51 - secondary malignant neoplasm of bone, Diagnosed 04/27/2025 (active) and Primary, c90.00 - multiple myeloma not having achieved remission, Diagnosed 03/18/2025 (active) . Imaging: See HPI Impression: Improving multiple myeloma per imaging studies PLAN: Continue immunotherapy Follow-up with [facility] only. We will see the patient in the future if specifically requested. Signed by: 09/22/2025 11:41:19 AM <<Signature on File>> Time spent with patient//review of documents/preparation of document: 20 minutes CPT Code: CPT Code:
[2025-09-22 13:48] LABS: Hematocrit 39.7 % (36-47); Hemoglobin 13.30 g/dL (11.27-16.99); Mean Corpuscular HGB Conc 33.5 g/dL (30-55); Mean Corpuscular Hemoglobin 31.7 pg (27-33); Mean Corpuscular Volume 94.7 fl (85-98); Nucleated Red Blood Cells % 0 %; Platelet Count 256 10^3/cmm (157-399); Red Blood Count 4.19 10^6/uL (3.85-5.65); White Blood Count 5.12 10^3/uL (3.29-11.43)
[2025-09-22 14:12] LABS: Alanine Aminotransferase 15 U/L (0-33); Albumin Level 4.1 g/dL (3.5-5.2); Alkaline Phosphatase 80 U/L (35-105); Anion Gap 18.2 (5-19); Aspartate Amino Transferase 21 U/L (0-32); Blood Urea Nitrogen 8 mg/dL (8-23); Calcium 8.7 mg/dL (8.5-10.5); Carbon Dioxide 22 mmol/L (22-29); Chloride 101 mmol/L (98-107); Globulin 2.0 g/dL (1.3-4.6); Glucose 244 mg/dL (65-115); Osmolality Calculated 290 mOsm/kg (285-295); Potassium 4.2 mmol/L (3.5-5.1); Sodium 137 mmol/L (136-145); Total Protein 6.1 g/dL (6.6-8.7)
[2025-09-22] MEDS: daratumumab-hyaluronidase-fihj 1,800 mg/15 mL SDV 1800 MG SUBCUT (15:19)
== END 2025-09-26 23:59 | disposition home or self-care (01) ==
PROVIDERS: Nurse Practitioner; Visit Provider Internal Medicine
DX: Z53.9 Procedure and treatment not carried out, unspecified reason; Z51.12 Encounter for antineoplastic immunotherapy; C90.00 Multiple myeloma not having achieved remission; C79.51 Secondary malignant neoplasm of bone; I26.99 Other pulmonary embolism without acute cor pulmonale; R03.0 Elevated blood-pressure reading, without diagnosis of hypertension; G62.9 Polyneuropathy, unspecified; Z79.899 Other long term (current) drug therapy; Z79.52 Long term (current) use of systemic steroids; Z79.01 Long term (current) use of anticoagulants; E66.9 Obesity, unspecified; Z68.35 Body mass index [BMI] 35.0-35.9, adult; Z92.3 Personal history of irradiation
CPT/HCPCS: 36415; 78816; 80053; 82306; 85025; 96401; 99213; 99214; A9552; J9144; J9999

== ENCOUNTER 2025-09-27 05:00 | Outpatient (RCR) | payer MEDICARE, SELFPAY | END 2025-10-27 23:59 | disposition home or self-care (01) | LOC: SPT 05:00 | PROVIDERS: Visit Provider Nurse Practitioner | DX: R26.89 Other abnormalities of gait and mobility (principal); M62.81 Muscle weakness (generalized) | CPT/HCPCS: 97110 ==

== ENCOUNTER 2025-10-08 07:43 | Oncology outpatient (recurring) (ONCR) | payer MEDICARE, SELFPAY ==
[2025-10-08 08:15] LABS: Hematocrit 38.1 % (36-47); Hemoglobin 13.00 g/dL (11.27-16.99); Mean Corpuscular HGB Conc 34.1 g/dL (30-55); Mean Corpuscular Hemoglobin 32.5 pg (27-33); Mean Corpuscular Volume 95.3 fl (85-98); Nucleated Red Blood Cells % 0 %; Platelet Count 247 10^3/cmm (157-399); Red Blood Count 4.00 10^6/uL (3.85-5.65); White Blood Count 9.98 10^3/uL (3.29-11.43)
[2025-10-08 08:45] LABS: Alanine Aminotransferase 11 U/L (0-33); Albumin Level 4.2 g/dL (3.5-5.2); Alkaline Phosphatase 79 U/L (35-105); Anion Gap 16.5 (5-19); Aspartate Amino Transferase 13 U/L (0-32); Blood Urea Nitrogen 9 mg/dL (8-23); Calcium 9.2 mg/dL (8.5-10.5); Carbon Dioxide 24 mmol/L (22-29); Chloride 98 mmol/L (98-107); Globulin 2.2 g/dL (1.3-4.6); Glucose 194 mg/dL (65-115); Osmolality Calculated 282 mOsm/kg (285-295); Potassium 4.5 mmol/L (3.5-5.1); Sodium 134 mmol/L (136-145); Total Protein 6.4 g/dL (6.6-8.7)
[2025-10-08] MEDS: denosumab 120 mg SDV (Infusion Clinic Only) SUBCUT (10:24)
[2025-10-08] MEDS: daratumumab-hyaluronidase-fihj 1,800 mg/15 mL SDV 1800 MG SUBCUT (10:26)
[2025-10-09 08:19] LABS: PROTEIN, TOTAL 6.0 g/dL (6.1-8.1)
[2025-10-11 13:04] LABS: KAPPA LIGHT CHAIN, FREE, SERUM 1.6 mg/L (3.3-19.4); KAPPA/LAMBDA LIGHT CHAINS FREE >1.07 (0.26-1.65); LAMBDA LIGHT CHAIN, FREE, SERU <1.5 mg/L (5.7-26.3)
[2025-10-11 19:59] LABS: ALPHA 1 GLOBULIN 0.3 g/dL (0.2-0.3); ALPHA 2 GLOBULIN 0.8 g/dL (0.5-0.9); BETA 1 GLOBULIN 0.4 g/dL (0.4-0.6); BETA 2 GLOBULIN 0.3 g/dL (0.2-0.5)
== END 2025-10-08 23:59 | disposition home or self-care (01) ==
PROVIDERS: Visit Provider Nurse Practitioner
DX: Z51.12 Encounter for antineoplastic immunotherapy (principal); C90.00 Multiple myeloma not having achieved remission; C79.51 Secondary malignant neoplasm of bone; Z79.899 Other long term (current) drug therapy; I26.99 Other pulmonary embolism without acute cor pulmonale; Z79.01 Long term (current) use of anticoagulants; R03.0 Elevated blood-pressure reading, without diagnosis of hypertension; Z79.52 Long term (current) use of systemic steroids; G62.9 Polyneuropathy, unspecified
CPT/HCPCS: 36415; 80053; 82306; 82784; 83883; 84155; 84165; 85025; 96372; 96401; 99214; J0897; J9144; J9999

== ENCOUNTER 2025-10-25 12:50 | Oncology outpatient (recurring) (ONCR) | payer MEDICARE, SELFPAY ==
[2025-10-25 13:27] LABS: Hematocrit 41.0 % (36-47); Hemoglobin 13.60 g/dL (11.27-16.99); Mean Corpuscular HGB Conc 33.2 g/dL (30-55); Mean Corpuscular Hemoglobin 32.2 pg (27-33); Mean Corpuscular Volume 96.9 fl (85-98); Nucleated Red Blood Cells % 0 %; Platelet Count 223 10^3/cmm (157-399); Red Blood Count 4.23 10^6/uL (3.85-5.65); White Blood Count 5.16 10^3/uL (3.29-11.43)
[2025-10-25 14:47] LABS: Alanine Aminotransferase 9 U/L (0-33); Albumin Level 4.0 g/dL (3.5-5.2); Alkaline Phosphatase 89 U/L (35-105); Anion Gap 17.3 (5-19); Aspartate Amino Transferase 16 U/L (0-32); Blood Urea Nitrogen 6 mg/dL (8-23); Calcium 9.3 mg/dL (8.5-10.5); Carbon Dioxide 23 mmol/L (22-29); Chloride 100 mmol/L (98-107); Globulin 2.1 g/dL (1.3-4.6); Glucose 146 mg/dL (65-115); Osmolality Calculated 282 mOsm/kg (285-295); Potassium 4.3 mmol/L (3.5-5.1); Sodium 136 mmol/L (136-145); Total Protein 6.1 g/dL (6.6-8.7)
[2025-10-25] MEDS: daratumumab-hyaluronidase-fihj 1,800 mg/15 mL SDV 1800 MG SUBCUT (15:55)
== END 2025-10-25 23:59 | disposition home or self-care (01) ==
PROVIDERS: Visit Provider Nurse Practitioner
DX: Z53.9 Procedure and treatment not carried out, unspecified reason; Z51.12 Encounter for antineoplastic immunotherapy; C90.00 Multiple myeloma not having achieved remission; C79.51 Secondary malignant neoplasm of bone; R03.0 Elevated blood-pressure reading, without diagnosis of hypertension; G62.9 Polyneuropathy, unspecified; I26.99 Other pulmonary embolism without acute cor pulmonale; Z79.01 Long term (current) use of anticoagulants; Z79.52 Long term (current) use of systemic steroids
CPT/HCPCS: 36415; 80053; 82306; 85025; 96401; 99214; J9144; J9999